=== PATIENT | female | born 1940 | race Caucasian/White ===

== ENCOUNTER 2020-07-02 14:30 | Emergency (ER) | payer MEDICARE, SELFPAY ==
--- NOTE | ~2020-07-02 | MR_ITS ---
EXAMINATION: MR LUMBAR SPINE WITHOUT CONTRAST CLINICAL INFORMATION: Low back pain and right leg weakness. COMPARISON: None TECHNIQUE: MRI of the lumbar spine was obtained using routine sequences without contrast. FINDINGS: VERTEBRAL BODIES AND PARASPINAL STRUCTURES: The marrow signal is within normal limits. Mild leftward lumbar spinal curvature noted. There is a grade 2 anterolisthesis at the L5-S1 level with a 1 cm slippage. Chronic bilateral L5 pars defects are also present. No compression fractures visible. Mild retrosubluxation noted at the L3-L4 level. The paraspinal soft tissues appear normal. There are mild degenerative changes of the sacroiliac joints. CONUS MEDULLARIS AND CAUDA EQUINA: Normal, terminating at the level of T12-L1. No lower cord signal abnormality is seen. The cauda equina nerve roots are normal. SPINAL LEVELS: L1-L2 AND L2-L3: No disc pathology, central canal stenosis, or foraminal narrowing. L3-L4: Mild retrosubluxation and disc bulge with anterior endplate spurring and mild facet arthropathy. No central canal stenosis. Mild right foraminal narrowing. L4-L5: Right paracentral disc protrusion mildly impressing upon the ventral thecal sac and right L5 nerve root in the subarticular zone. Severe facet arthropathy without central canal stenosis. Underlying disc bulge with mild right foraminal encroachment. L5-S1: Anterior subluxation and moderate facet degeneration with bilateral L5 pars defects and a diffuse disc bulge. No central canal stenosis. Unroofed disc and osseous spurring result in significant foraminal encroachment and compression of both exiting L5 nerve roots, worse on the left side. MR/MR lumbar spine wo con IMPRESSION: 1. Grade 2 anterolisthesis at the L5-S1 level with bilateral L5 pars defects and unroofed bulging disc contribute to severe foraminal encroachment and compression of both L5 nerve roots, more so on the left side. No central canal stenosis. 2. Right paracentral disc protrusion at L4-L5 level with mass effect upon the right L5 nerve root. Severe facet arthropathy. Mild spondylitic changes and slight retrosubluxation at the L3-L4 level.
[2020-07-02 15:35] VITALS: BP 153/72; PULSE 78; RESP 16; TEMP 36.6; O2SAT 96; BMI 35.1
--- NOTE | 2020-07-02 17:05 | PC.NURSE ---
PT HAS PHARMACY AT BEDSIDE DOING MED REC.
[2020-07-02 17:31] LABS: Glucose Urine UA NEG (NEG); Leukocyte Esterase Urine NEG (NEG); Nitrite Urine NEG (NEG); Specific Gravity - Urine 1.015 (1.005-1.025); Urine Blood NEG (NEG); Urine Ketones NEG (NEG); Urine Protein NEG (NEG-TRACE)
[2020-07-02] MEDS: Morphine Sulfate 4 MG/ML CARTRIDGE IVPUSH (17:31)
[2020-07-02] MEDS: ondansetron HCL 4 MG/2 ML VIAL IVPUSH (17:32)
[2020-07-02 17:34] LABS: Appearance Urine CLEAR; Color Urine STRAW; MANUAL DIFF FLAG NO
--- NOTE | 2020-07-02 17:34 | ED_ITS ---
HPI - General Adult General Chief complaint: Extremity Injury, Lower Stated complaint: bag and leg pain Time Seen by Provider: 07/02/20 15:56 Source: patient and family (Son, Andrew) Mode of arrival: ambulatory Limitations: language barrier (Maori speaking only, group tester used) History of Present Illness HPI narrative: 79-year-old female who presents emergency department for evaluation of right lower extremity pain weakness and back pain. According to the son, the patient had gradual onset of right leg pain. Approximately 1 month prior the patient developed numbness to her right lateral calf area. She states that the numbness got worse in turned into a painful sensation that she describes as if someone is drooling her leg constantly. The pain is 15/10. The pain improves if she lies down flap is worse if she sits upper tries to walk. Over the past 2-3 weeks she has also developed right lower back pain which is constant and moderate in intensity. According to the son, she has got weakness of the right leg to the point where she is unable to walk. She was seen by her behavior support specialist and referred to a vascular surgeon for possible peripheral arterial disease. She was seen by a vascular surgeon (? Dr. Dietz) yesterday and told that she most likely has a back problem causing her leg pain. The son states that the patient's pain and weakness got worse today therefore he brought her to the emergency department for evaluation. The patient has had episodes of constipation and diarrhea and has occasionally lost control of her bowels but not her urine. She has not had any fever or chills. 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 Related Data Home Medications Medication Instructions Recorded Confirmed albuterol sulfate [ProAir HFA] 2 puff INHALATION Q4H PRN 07/02/20 07/02/20 amlodipine 5 mg PO DAILY 07/02/20 07/02/20 aspirin 81 mg PO DAILY 07/02/20 07/02/20 atorvastatin 20 mg PO DAILY 07/02/20 07/02/20 cholecalciferol (vitamin D3) 25 mcg PO DAILY 07/02/20 07/02/20 [Vitamin D3] famotidine 20 mg PO BEDTIME 07/02/20 07/02/20 ferrous sulfate [FeroSul] 325 mg PO DAILY 07/02/20 07/02/20 furosemide 40 mg PO DAILY 07/02/20 07/02/20 insulin glargine [Lantus Solostar 20 unit SUBCUT BEDTIME 07/02/20 07/02/20 U-100 Insulin] levothyroxine 50 mcg PO DAILY@0630 07/02/20 07/02/20 losartan 100 mg PO DAILY 07/02/20 07/02/20 metoprolol tartrate 100 mg PO BID 07/02/20 07/02/20 rivaroxaban [Xarelto] 15 mg PO QPM 07/02/20 07/02/20 sertraline 100 mg PO DAILY 07/02/20 07/02/20 Allergies Allergy/AdvReac Type Severity Reaction Status Date / Time No Known Allergies Allergy Unverified 11/03/19 19:48 [No Known Allergies*] Review of Systems Review of Systems: Yes all other systems are reviewed and are negative ON LICENSE OF [facility] Past Medical History ON LICENSE OF [facility] Narrative: Past medical history diabetes mellitus, hypertension, coronary disease and kidney disease, past surgical history CABG 10 years prior, 2 valves replaced 10 years prior. The patient denies tobacco, alcohol and drug use. Medical History Diabetes Heart attack Kidney disease Surgical History H/O: hysterectomy Social History Social History Advance Directives: No Advance Directives Information Provided: Yes Physical Exam Vital Signs: Vital Signs: Last Vital Signs Temp 97.9 F 07/02/20 15:35 Pulse 69 07/02/20 20:37 Resp 14 07/02/20 20:37 BP 127/50 L 07/02/20 18:36 Pulse Ox 90 L 07/02/20 20:37 Body Mass Index 35.1 Const: General: cooperative Nutritional Appearance: overweight Orientation/consciousness: oriented to person and oriented to place Limitations: no limitations HENMT: Head: Yes normal to inspection, Yes normocephalic and Yes atraumatic Ears: external ears normal General nose exam: Normal external nose present Face and sinus: Yes normal facial exam Mouth: Normal oral and palatal mucosa present Throat: Yes posterior oropharynx normal Eyes: Periorbital: periorbital findings normal Eyelids: Yes eyelids normal Conjunctivae: conjunctivae normal Sclerae: sclerae normal Corneas: corneas normal Pupils: Equal, round and reactive pupils present Direct Ophthalmoscopy: normal light reflex Neck: Neck: Yes full ROM, Yes no lymphadenopathy, Yes no meningeal signs, Yes trachea midline and Yes supple Chest: Chest palpation & inspection: normal inspection of the chest and normal palpation of entire chest wall Resp: Effort & Inspection: normal respiratory effort and able to speak in complete sentences Auscultation: clear to auscultation bilaterally Cardio: Rate: regular rate Rhythm: regular rhythm Heart sounds: S1 normal heart sound present, S2 normal heart sound present and no murmurs GI: Inspection: Yes normal to inspection Palpation (GI): Soft to palpation, nontender, no guarding, not rigid and No hepatosplenomegaly present : General: Yes no CVA tenderness Back/Spine/Pelvis: Back: no CVA tenderness Cervical Spine: normal cervical lordosis Thoracic/Lumbar Spine: thoracic and lumbar spine normal to inspection and lumbar spinal tenderness at L1, at L2, at L3, at L4 and at L5 Skin: Lesions: no lesions Rashes: no rashes Wounds: no wounds Neuro: Other: Strength examination: The patient's left lower extremity has normal strength. The right lower extremity revealed that the patient is unable to lift her right leg off the bed against gravity. She is unable to move her right leg side to side secondary to weakness and pain. The patient has good dorsiflexion of her foot and good extension of her foot. She has normal strength of her right great toe with flexion and extension. Reflexes: Patella and ankle jerk reflexes are absent bilaterally. General: oriented to person, oriented to place and no meningeal signs Cranial nerves: Yes CN's II-XII intact bilaterally and Yes Equal, round and reactive pupils present Cognition (Neuro): normal cognition Motor exam (neuro): Other motor observations present Sensory Exam: other (Decreased light touch right lateral calf) Extrem: General: Yes normal to inspection and Yes full ROM Psych: Appearance: well kempt Mental Status: mental status grossly normal Speech and movement: Normal speech and movement present Affect: normal affect Attitude: cooperative Thought process: Normal thought process present Thought content: Normal thought content present Course Course Course Narrative: 79-year-old female who presents emergency department for evaluation progressive right lower extremity pain with weakness x4 weeks and right lower extremity weakness x2 weeks. Patient does have weakness of her right lower extremity with decreased sensation over the right lateral calf area. I am concerned the patient's symptoms have progressed and now she has numbness and weakness in her right leg to the point where she is unable to walk. The distribution appears to be in a L3-L4, L4-L5 pattern. The patient is on blood thinners, possible that she may have the hematoma in this area versus disc disease. I did order blood work on the patient as well as an MRI of the lumbar spine. 2010: The patient did get some improvement with the morphine 4 mg IV. Her pain came down to 5/10. She was ordered to get a 2nd dose of morphine 2 mg IV. Patient's laboratory evaluation revealed an elevated INR of 1.9 otherwise was unremarkable. The MRI of the patient's lumbar spine did reveal a right paracentral disc protrusion at L4-L5 level with mass effect upon the right L5 nerve root. Severe facet arthropathy. Mild spondylitic changes and slight retrosubluxation at the L3-L4 level. Given this finding, the patient has weakness in her right lower extremity and numbness, believe that the patient will need neurosurgical evaluation. I did contact the transfer line at [facility] to discuss this further with the neurosurgeon provider on-call for their institution 2121: I did discuss the patient's presentation with the physician gallery assistant covering the neurosurgical service at [facility]. She was able to review the MRIs. Her impression was that the patient could follow-up with them as an outpatient however the patient has progressive weakness over the past 2 weeks with a significant finding on the MRI and I disagreed with recommendation therefore I will attempt to get the patient transferred to another facility for neurosurgical evaluation. 2157: I did discuss the patient's presentation with the transfer line at [facility]. The patient was accepted as an ED to ED transfer to their [facility]. The excepting physician is Dr. Horvath. The patient will be transferred by ALS ambulance. Medical Decision Making Lab Data Result diagrams: 07/02/20 17:12 07/02/20 18:35 Labs: Lab Results 07/02/20 07/02/20 07/02/20 Range/Units 17:12 17:12 17:12 WBC 8.3 (4.8-10.8) X10*3/uL RBC 4.23 (4.20-5.50) X10*6/uL Hgb 11.9 L (12.0-16.0) g/dl Hct 37.9 (37-47) % MCV 89.6 (80-98) fL MCH 28.1 (27.0-33.0) pg MCHC 31.4 (31.0-35.0) g/dl RDW 14.5 (11.0-16.0) % Plt Count 199 (160-400) X10*3/uL MPV 11.5 (9.4-12.3) fL Immature Gran % (Auto) 0.5 H (0.0-0.4) % Neut % (Auto) 74.2 H (45-73) % Lymph % (Auto) 14.4 L (20-40) % [place] % (Auto) 7.7 (2-11) % Eos % (Auto) 2.8 (0-4) % Baso % (Auto) 0.4 (0-2) % Lymph # (Auto) 1.2 (1.2-4.9) X10*3/uL [place] # (Auto) 0.6 (0.1-1.2) X10*3/uL Eos # (Auto) 0.2 (0.0-0.4) X10*3/uL Baso # (Auto) 0.0 (0.0-0.2) X10*3/uL Abs Immat Gran (auto) 0.04 H (0.00-0.03) X10*3/uL Absolute Neuts (auto) 6.1 (2.0-8.3) X10*3/uL Absolute Nucleated RBC 0.000 (0.0-0.012) X10*3/uL Nucleated RBC % (auto) 0.0 (0.0-0.2) /100WBC PT 22.6 H (10.8-13.0) SEC INR 1.9 H (0.9-1.1) APTT 48.6 H (24.1-38.0) SEC Sodium (135-145) mmol/L Potassium (3.3-5.1) mmol/L Chloride (96-108) mmol/L Carbon Dioxide (22-29) mmol/L Anion Gap (12-20) BUN (9-16) mg/dL Creatinine (0.5-1.4) mg/dL Estim Creat Clear Calc Estimated GFR Random Glucose (60-115) mg/dL Calcium (8.4-10.2) mg/dL Total Bilirubin (0.0-1.0) mg/dL AST (5-31) U/L ALT (0-31) U/L Alkaline Phosphatase (39-117) U/L Total Protein (6.5-8.0) g/dL Albumin (3.5-5.0) g/dL Urine Color STRAW Urine Appearance CLEAR Urine pH 7.0 (5.0-8.0) Ur Specific [place] 1.015 (1.005-1.025) Urine Protein NEG (NEG-TRACE) MG/DL Urine Glucose (UA) NEG (NEG) MG/DL Urine Ketones NEG (NEG) MG/DL Urine Blood NEG (NEG) Urine Nitrite NEG (NEG) Ur Leukocyte Esterase NEG (NEG) COVID-19 (DENISE) (Negative) COVID-19 Clin Com 07/02/20 07/02/20 Range/Units 18:35 20:21 WBC (4.8-10.8) X10*3/uL RBC (4.20-5.50) X10*6/uL Hgb (12.0-16.0) g/dl Hct (37-47) % MCV (80-98) fL MCH (27.0-33.0) pg MCHC (31.0-35.0) g/dl RDW (11.0-16.0) % Plt Count (160-400) X10*3/uL MPV (9.4-12.3) fL Immature Gran % (Auto) (0.0-0.4) % Neut % (Auto) (45-73) % Lymph % (Auto) (20-40) % [place] % (Auto) (2-11) % Eos % (Auto) (0-4) % Baso % (Auto) (0-2) % Lymph # (Auto) (1.2-4.9) X10*3/uL [place] # (Auto) (0.1-1.2) X10*3/uL Eos # (Auto) (0.0-0.4) X10*3/uL Baso # (Auto) (0.0-0.2) X10*3/uL Abs Immat Gran (auto) (0.00-0.03) X10*3/uL Absolute Neuts (auto) (2.0-8.3) X10*3/uL Absolute Nucleated RBC (0.0-0.012) X10*3/uL Nucleated RBC % (auto) (0.0-0.2) /100WBC PT (10.8-13.0) SEC INR (0.9-1.1) APTT (24.1-38.0) SEC Sodium 143 (135-145) mmol/L Potassium 3.7 (3.3-5.1) mmol/L Chloride 102 (96-108) mmol/L Carbon Dioxide 31 H (22-29) mmol/L Anion Gap 14 (12-20) BUN 16 (9-16) mg/dL Creatinine 1.10 (0.5-1.4) mg/dL Estim Creat Clear Calc 42.2 Estimated GFR 48 Random Glucose 191 H (60-115) mg/dL Calcium 8.7 (8.4-10.2) mg/dL Total Bilirubin 1.6 H (0.0-1.0) mg/dL AST 18 (5-31) U/L ALT 15 (0-31) U/L Alkaline Phosphatase 111 (39-117) U/L Total Protein 6.9 (6.5-8.0) g/dL Albumin 4.1 (3.5-5.0) g/dL Urine Color Urine Appearance Urine pH (5.0-8.0) Ur Specific [place] (1.005-1.025) Urine Protein (NEG-TRACE) MG/DL Urine Glucose (UA) (NEG) MG/DL Urine Ketones (NEG) MG/DL Urine Blood (NEG) Urine Nitrite (NEG) Ur Leukocyte Esterase (NEG) COVID-19 (DENISE) Negative (Negative) COVID-19 Clin Com See Note Imaging Data MRI lumbar spine without contrast: Radiologist's impression: Ordering Physician: Davie Ramon MD Date of Service: 07/02/20 Procedure(s): MR lumbar spine wo con Accession Number(s): [id number] cc: Davie Ramon MD~ EXAMINATION: MR LUMBAR SPINE WITHOUT CONTRAST CLINICAL INFORMATION: Low back pain and right leg weakness. COMPARISON: None TECHNIQUE: MRI of the lumbar spine was obtained using routine sequences without contrast. FINDINGS: VERTEBRAL BODIES AND PARASPINAL STRUCTURES: The marrow signal is within normal limits. Mild leftward lumbar spinal curvature noted. There is a grade 2 anterolisthesis at the L5-S1 level with a 1 cm slippage. Chronic bilateral L5 pars defects are also present. No compression fractures visible. Mild retrosubluxation noted at the L3-L4 level. The paraspinal soft tissues appear normal. There are mild degenerative changes of the sacroiliac joints. CONUS MEDULLARIS AND CAUDA EQUINA: Normal, terminating at the level of T12-L1. No lower cord signal abnormality is seen. The cauda equina nerve roots are normal. SPINAL LEVELS: L1-L2 AND L2-L3: No disc pathology, central canal stenosis, or foraminal narrowing. L3-L4: Mild retrosubluxation and disc bulge with anterior endplate spurring and mild facet arthropathy. No central canal stenosis. Mild right foraminal narrowing. L4-L5: Right paracentral disc protrusion mildly impressing upon the ventral thecal sac and right L5 nerve root in the subarticular zone. Severe facet arthropathy without central canal stenosis. Underlying disc bulge with mild right foraminal encroachment. L5-S1: Anterior subluxation and moderate facet degeneration with bilateral L5 pars defects and a diffuse disc bulge. No central canal stenosis. Unroofed disc and osseous spurring result in significant foraminal encroachment and compression of both exiting L5 nerve roots, worse on the left side. MR/MR lumbar spine wo con IMPRESSION: 1. Grade 2 anterolisthesis at the L5-S1 level with bilateral L5 pars defects and unroofed bulging disc contribute to severe foraminal encroachment and compression of both L5 nerve roots, more so on the left side. No central canal stenosis. 2. Right paracentral disc protrusion at L4-L5 level with mass effect upon the right L5 nerve root. Severe facet arthropathy. Mild spondylitic changes and slight retrosubluxation at the L3-L4 level. Dictated By:KARO MORRIS MDSigned By:<Electronically signed by KARO MORRIS MD in [place]>07/02/201919 DD/ TD/TT: Loss Prevention Associate: KATLYN Discharge Plan Discharge Clinical Impression: Intervertebral disc protrusion, Right leg weakness, Acute right lumbar radiculopathy Patient Disposition: [facility] Transfer Details: [facility] ED to ED transfer to the [facility], excepting physician Prescriptions: No Action sertraline 100 mg Tablet 100 mg PO DAILY RF: 0 furosemide 40 mg Tablet 40 mg PO DAILY RF: 0 atorvastatin 20 mg Tablet 20 mg PO DAILY RF: 0 metoprolol tartrate 100 mg Tablet 100 mg PO BID RF: 0 amlodipine 5 mg Tablet 5 mg PO DAILY RF: 0 aspirin 81 mg Tablet,Delayed Release (Dr/Ec) 81 mg PO DAILY RF: 0 famotidine 20 mg Tablet 20 mg PO BEDTIME RF: 0 levothyroxine 50 mcg Tablet 50 mcg PO DAILY@0630 RF: 0 losartan 100 mg Tablet 100 mg PO DAILY RF: 0 cholecalciferol (vitamin D3) [Vitamin D3] 25 mcg (1,000 unit) Tablet 25 mcg PO DAILY RF: 0 Lantus Solostar U-100 Insulin 100 unit/mL (3 mL) Insulin Pen 20 unit SUBCUT BEDTIME RF: 0 ferrous sulfate [FeroSul] 325 mg (65 mg iron) Tablet 325 mg PO DAILY RF: 0 Xarelto 15 mg Tablet 15 mg PO QPM RF: 0 albuterol sulfate [ProAir HFA] 90 mcg/actuation Hfa Aerosol Inhaler 2 puff INHALATION Q4H PRN (Reason: Respiratory Distress) RF: 0
[2020-07-02 17:36] LABS: Basophils Percent Auto 0.4 % (0-2); Eosinophils Absolute Auto 0.2 X10*3/uL (0.0-0.4); Eosinophils Percent Auto 2.8 % (0-4); Hematocrit 37.9 % (37-47); Hemoglobin 11.9 g/dl (12.0-16.0); Imm Gran Abs Auto 0.04 X10*3/uL (0.00-0.03); Imm Gran Pct Auto 0.5 % (0.0-0.4); Lymphocytes Absolute Auto 1.2 X10*3/uL (1.2-4.9); Lymphocytes Percent Auto 14.4 % (20-40); Mean Corpuscular HGB Conc 31.4 g/dl (31.0-35.0); Mean Corpuscular Hemoglobin 28.1 pg (27.0-33.0); Mean Corpuscular Volume 89.6 fL (80-98); Mean Platelet Volume 11.5 fL (9.4-12.3); Monocytes Absolute Auto 0.6 X10*3/uL (0.1-1.2); Monocytes Percent Auto 7.7 % (2-11); Neutrophils Absolute Auto 6.1 X10*3/uL (2.0-8.3); Neutrophils Percent Auto 74.2 % (45-73); Platelet Count 199 X10*3/uL (160-400); Red Blood Count 4.23 X10*6/uL (4.20-5.50); Red Cell Distribution Width 14.5 % (11.0-16.0); White Blood Count 8.3 X10*3/uL (4.8-10.8)
[2020-07-02 17:46] LABS: INTERNATIONAL NORM RATIO 1.9 (0.9-1.1); Prothrombin Time 22.6 SEC (10.8-13.0)
[2020-07-02 18:17] LABS: Partial Thromboplastin Time 48.6 SEC (24.1-38.0)
[2020-07-02 18:36] VITALS: BP 127/50; PULSE 70; RESP 16; O2SAT 94
[2020-07-02 19:16] LABS: Alanine Aminotransferase 15 U/L (0-31); Albumin Level 4.1 g/dL (3.5-5.0); Alkaline Phosphatase 111 U/L (39-117); Anion Gap 14 (12-20); Aspartate Amino Transferase 18 U/L (5-31); Bilirubin Total 1.6 mg/dL (0.0-1.0); Blood Urea Nitrogen 16 mg/dL (9-16); Calcium 8.7 mg/dL (8.4-10.2); Carbon Dioxide 31 mmol/L (22-29); Chloride 102 mmol/L (96-108); Creatinine Clr Calc Pharmacy 42.2; Estimated Glomerular Filt Rate 48; Glucose Random 191 mg/dL (60-115); Potassium 3.7 mmol/L (3.3-5.1); Sodium 143 mmol/L (135-145); Total Protein 6.9 g/dL (6.5-8.0)
[2020-07-02] MEDS: Morphine Sulfate 4 MG/ML CARTRIDGE 2 MG IVPUSH (20:28)
[2020-07-02 20:37] VITALS: PULSE 69; RESP 14; O2SAT 90
--- NOTE | 2020-07-02 20:38 | PC.NURSE ---
HELD MORPHINE DO TO LOW SPO2 90% RR 14.
[2020-07-02 20:42] LABS: COVID-19 Test Negative (Negative)
[2020-07-02 23:10] VITALS: BP 141/52; PULSE 63; RESP 14; TEMP 36.9; O2SAT 94
--- NOTE | 2020-07-02 23:28 | PC.NURSE ---
NEURO SURGERY EXCEPTED PT TO [facility] ER ADMISSION PT AND FAMILY AWARE PT WILL BE TRANSFER BY AMBULANCE.
--- NOTE | 2020-07-02 23:44 | PC.NURSE ---
PT PAIN IN CONTROL AT THIS TIME PT SLEEPING COMFORTABLE TRANSFERRED WITH EASE TO [facility] FOR TRANSPORT.
== END 2020-07-02 23:44 | disposition short-term general hospital (02) ==
PROVIDERS: Emergency Provider Emergency Medicine Emergency Medical Services; PCP Nurse Practitioner Family
DX: M51.16 Intervertebral disc disorders with radiculopathy, lumbar region (principal); M79.661 Pain in right lower leg; R53.1 Weakness; Z20.822 Contact with and (suspected) exposure to COVID-19; E11.9 Type 2 diabetes mellitus without complications; Z79.4 Long term (current) use of insulin
CPT/HCPCS: 36415; 72148; 80053; 81003; 85025; 85610; 85730; 87635; 96374; 96375; 96376; 99285; J2270; J2405

== ENCOUNTER 2024-06-01 13:13 | Outpatient (AMB) | payer MEDICARE, SELFPAY ==
--- NOTE | 2024-06-01 13:19 | MHC.OFFVIS ---
Vital Signs 06/01/24 13:22 Height 4 ft 11 in Weight 155 lb BMI 31.3 BP 126/64 Blood Pressure Location Rt brachial Position Sitting Pulse 60 Pulse Source Pulse Oximeter Pulse Oximetry (%) 97 Oxygen Delivery Method Nasal Cannula Oxygen Flow Rate 2 Intake Visit Reasons: Interstitial Lung Disease Cloth Mercerizer Operator Required: No Cloth Mercerizer Operator Services: Cloth Mercerizer Operator Offered & Declined Assistant Professor Of Economics: Assistant Professor Of Economics offered & declined Accompanied by: Son Allergies No Known Allergies [No Known Allergies*] Allergy (Unverified 06/01/24 13:26) Medication List - Last Reconciled 06/01/24 by Faye Hernandes LPN albuterol sulfate 90 mcg/actuation (ProAir HFA) 2 puffs inhalation Q4H PRN atorvastatin 20 mg PO DAILY cholecalciferol (vitamin D3) (Vitamin D3) 25 mcg PO DAILY famotidine 20 mg PO BEDTIME ferrous sulfate (FeroSul) 325 mg PO DAILY furosemide 40 mg PO BID insulin glargine (Lantus Solostar U-100 Insulin) 20 units subcut BEDTIME levothyroxine 50 mcg PO DAILY@0630 metoprolol tartrate 100 mg PO BID olmesartan 20 mg PO DAILY rivaroxaban (Xarelto) 15 mg PO QPM sertraline 50 mg PO DAILY HPI HPI Interstitial Lung Disease: Details: Ratna is a pleasant 83-year-old female, never smoker, with underlying history of interstitial lung disease, chronic respiratory failure O2 dependent, CHF, hypertension, hyperlipidemia, CABG x3, atrial fibrillation on Xarelto, diabetes, GERD, chronic kidney disease, and left vocal cord paralysis with history of Botox injections through ENT. She was referred by PCP for pulmonary evaluation due to known history of interstitial lung disease. She was previously under the care of [facility] however required transfer to this office. Per referral patient has had 9 admissions in 2021 related to acute on chronic respiratory failure, with known history of silent aspiration. Reviewed pulmonary records which stated likely aspiration related pneumonitis. She had a modified barium swallow test in November 2023 which revealed silent aspiration. Since this patient reports she has had good control of respiratory symptoms adjusting diet. She does admit to not consistently using thickener with liquids. Her son notes that when she does not use it, she almost always develops wet cough afterwards. She report intermittent wheezing and dyspnea. She currently uses nebulized albuterol/DuoNeb however infrequently. She has been using 1-2L with exertion and 1L with rest. She does note that she is very inactive at this time due to persistent vertigo which she will be starting PT for this. She is under the care of cardiology through [facility], last echo 2020 revealed moderate pulmonary hypertension RSVP 50-55. She reports orthopnea and trace BLE edema using 40mg lasix QD. She also is going to be evaluated by neurology for possible dementia. [facility] Medical History Diabetes Heart attack Kidney disease Surgical History H/O: hysterectomy Social History (Updated 06/01/24 @ 13:32 by Faye Hernandes LPN) Patient Tobacco Use Status: Never used Tobacco Review of Systems Const Denies chills, Denies excessive sweating, Denies fever(s), Denies headache(s) and Denies night sweats Eyes Denies dry eyes, Denies irritation and Denies itchy eyes ENT Reports Normal hearing present, Denies headache(s), Denies nasal congestion, Denies nasal discharge, Denies post nasal drip and Denies sore throat Card Denies chest pain, Denies chest pain at rest, Denies chest pain with activity, Denies claudication and Denies paroxysmal nocturnal dyspnea Resp Denies chest congestion, Denies excessive phlegm production, Denies pain on inspiration, Denies pain with cough and Denies stridor Musc Denies myalgias Neuro Reports Normal hearing present and Denies headache(s) Endo Denies excessive sweating Gaudencio/Lymph Denies lymphadenopathy Aller/Immun Denies itchy eyes and Denies seasonal rhinorrhea Physical Exam Vital Signs: Last Vital Signs Pulse 60 06/01/24 13:22 BP 126/64 06/01/24 13:22 Pulse Ox 97 06/01/24 13:22 Oxygen Delivery Method Nasal Cannula 06/01/24 13:22 Oxygen Flow Rate 2 06/01/24 13:22 BMI result Body Mass Index 31.3 Const General: cooperative, healthy appearing, comfortable, no acute distress, well developed and alert Nutritional Appearance: obese Orientation/consciousness: patient oriented x3 Limitations: no limitations HEENT Head: Yes normal to inspection, Yes normocephalic and Yes atraumatic Ears: hearing grossly normal bilaterally and external ears normal Eyes General: appearance normal, both eyes and all related structures Eyelids: Yes eyelids normal Sclerae: sclerae normal EOM: EOMs intact bilaterally Neck Neck: Yes normal visual inspection and Yes no lymphadenopathy Lymphatic: no lymphadenopathy noted Chest Chest palpation & inspection: normal inspection of the chest Resp Effort & Inspection: normal respiratory effort, able to speak in complete sentences, no audible wheezes, no cough, no stridor, not tachypneic, no tripod positioning and no use of accessory muscles Auscultation: diminished lung sounds Cardio Jugular venous distension: no JVD Rate: regular rate Rhythm: regular rhythm Skin Other: warm, dry General skin exam: no rashes or lesions noted Neuro General: patient oriented x3 Cranial nerves: Yes Normal hearing present Cognition (Neuro): normal cognition Gait exam (Neuro): Normal gait present Extrem General: Yes normal to inspection, Yes capillary refill normal, Yes no clubbing, cyanosis or edema and Yes no pedal edema Psych Appearance: grossly normal and well kempt Speech and movement: Normal speech and movement present and Clear speech present Affect: normal affect Attitude: cooperative Thought process: Normal thought process present Thought content: Normal thought content present Insight: Good insight present (Psych) Judgement: Good judgement present (Psych) Results Reviewed Results Reviewed: PFT's Complete Please click on pdf link to open report PFT's Complete Lab: [facility] Name: RATNA LOYD CMRN: [id number] Sex: F Age: 82 Ethnicity: Hi Height: 59 In Weight: 178 Lb BMI: 35.9 Referring: Katherine Waldron M.D. Date of test: 11-Dec-2022 SPIROMETRY: FEV1 0.87, 58%; FVC 0.92, 47%; FEV1/FVC 95%; PEFR 3.20, 83%; SVC 1.05, 54% LUNG VOLUMES (N2): TLC 2.26, 58%; FRC 1.19, 54%; RV 1.21, 68%, IC 1.07, ERV 0.00 DIFFUSING CAPACITY: DLCO and KCO are 15% predicted adjusted for lung volume, Hb, barometric pressure DLCO 1.67, 11%, KCO 0.96, 25% predicteds adjusted for Hb of 12.2 VA 1.73, 46% 1.17, 60%, 127% of FVC OXIMETRY: 97% on 2 L/min O2 at rest PRIOR RESULTS: FEV1: 0.71, FVC: 0.86, T.80, DLCO: 1.11 on 09/04/2021. INTERPRETATION: Per weld technician patient had difficulty with testing despite good effort due to dyspnea Spirometry of limited quality, best effort demonstrates FEV1 0.87L (58% predicted) and FVC 0.92L (47% predicted) Moderate restrictive ventilatory defect based on lung volumes which correlate with spirometry values Severely reduced diffusion capacity on single effort with low volumes so may underestimate true DLCO Oxygen saturation (97%) is good on 2 L/min O2 at rest. The finding of restriction, high flows relative to FVC, with low DLCO is consistent with interstitial lung disease. Recommend check rest and walking O2 saturations as hypoxia can occur with DLCO this low. Normal values are not well established for individuals of this height. Since 09/04/2021, higher FEV1 (+23%, +15% pred), unchanged FVC (+7%), higher TLC (+26%, +14% pred), DLCO [Unc] (+50%, +4% pred). Interpreting Physician: Nathan Mohr M.D. Echo Complete-Doppler, Colorflow, M-Mode Transthoracic Echocardiography Report (TTE) Patient Demographics Patient Name RATNA LOYD Date of Study 01/14/2022 Corporate Gender Female Facility Race Ethnicity or Date of 1940 Height: 62.6 inches Age 81 year(s) Weight: 174.17 pounds Accession Number [id number] BSA: 1.81 m2 Room Number [id number] BMI: 31.25 kg/m2 Referring Physician Binu Acuna MD, MD Physician Director Of Physician Practices Marily Murphy [facility] Indications Heart failure. Clinical History COPD Remote history of CABG Atrial fibrillation. Congestive heart failure. ILD Study Data Type of Study TTE procedure:Echo Complete-Doppler, Colorflow, M-Mode. Study Date01/14/2022 Start Time: 01:57 PM Study Location: [facility] Adult Echo Study Status: ER Patient Status: Routine Technical Quality: Fair due to body habitus. Blood Pressure:124/54 mmHg EKG: Atrial fibrillation HR: 94 bpm Allergies - No known allergies. 2D Measurements LV Diastolic Dimension: 4.18 cm LV Systolic Dimension: 2.3 cm LV Septum Diastolic: 0.85 cm LV PW Diastolic: 1.04 cm AO Root Dimension: 2.76 cm RV Diastolic Dimension: 3.75 cm LA Dimension: 4 cm LA ESV (BP):75.45 ml LVOT Stroke Volume: 39 ml LA ESV Index: 42 ml/m2 Stroke Volume Index21.55 ml/m2 LVOT: 1.82 cm Cardiac Index:2.03 l/min/m2 Ascending Aorta:3.03 cm Doppler Measurements AV Peak Velocity: 138 cm/s MV Peak E-Wave: 90.8 cm/s AV Peak Gradient: 7.62 mmHg AV Mean Gradient: 3 mmHg MV P1/2t: 73 msec AV VTI:24.5 cm LVOT Peak Velocity: 81.6 cm/s MV Deceleration Time: 248 msec LVOT VTI15 cm MV Area (PHT): 3.01 cm2 AV Area (Continuity):1.59 cm2 PV Peak Velocity: 92.3 cm/s TR Velocity:309.48 cm/s PV Peak Gradient: 3.41 mmHg TR Gradient:38.31 mmHg Cardiac Anatomy Left Ventricle/Interventricular Septum The left ventricular size is normal. Left ventricular wall thickness is normal. The LV systolic function is normal . The left ventricular ejection fraction is 50-55 %. There is mild flattening of the interventricular septum during systole consistent with right ventricular pressure overload. Unable to assess diastolic function due to atrial fibrillation . Left Atrium/Interatrial Septum The left atrium is moderately dilated. Aortic Valve The aortic valve is trileaflet . The aortic valve appears mildly calcified. There is no aortic stenosis. There is no aortic regurgitation. Mitral Valve There is mild mitral annular calcification. The mitral valve opening is normal. There is mild mitral regurgitation. Aorta The ascending aorta and aortic root are normal in size. Right Ventricle The right ventricle is poorly visualized. The right ventricle is dilated. Right ventricular systolic function is mildly to moderately reduced. Right Atrium The right atrium is dilated. Pulmonic Valve The pulmonic valve appears grossly normal. Tricuspid Valve The tricuspid valve is grossly normal. There is moderate tricuspid valve regurgitation. Pumonary Artery There is moderate pulmonary hypertension. The pulmonary artery systolic pressure estimation is 50-55 mmHg. Venous Structures The inferior vena cava is mildly dilated with poor inspiratory collapse consistent with elevated right atrial pressures. Pericardium/Extracardiac There is no significant pericardial effusion. Summary The left ventricular size is normal. Left ventricular wall thickness is normal. The LV systolic function is normal . The left ventricular ejection fraction is 50-55 %. There is mild flattening of the interventricular septum during systole consistent with right ventricular pressure overload. Unable to assess diastolic function due to atrial fibrillation . The left atrium is moderately dilated. There is mild mitral annular calcification. The mitral valve opening is normal. There is mild mitral regurgitation. The right ventricle is poorly visualized. The right ventricle is dilated. Right ventricular systolic function is mildly to moderately reduced. There is moderate pulmonary hypertension. The pulmonary artery systolic pressure estimation is 50-55 mmHg. The inferior vena cava is mildly dilated with poor inspiratory collapse consistent with elevated right atrial pressures. Comparison Comparison is made to the study of May 09, 2021. The prior study is not available for comparison. Signature LT: CT Chest W/O Contrast CT Chest W/O Contrast INDICATION: Pneumonia, unresolved TECHNIQUE: Helical CT scan of the chest without IV contrast, formatted in 3 planes. Weight-based protocol was performed using automatic exposure control. CTDIvol Body: 15.09 mGy, DLP Body: 507 mGy*cm. COMPARISON: CT 01/03/2022. FINDINGS: Radio Producer view findings, lines and tubes: None. Trachea and airways: Patent without evidence of tracheal or endobronchial lesion. Lungs and pleura: Compared to 01/03/2022, notable decrease in multifocal airspace consolidations with no residual dense consolidative opacity. Where the consolidative opacities had been, there are scattered faint groundglass opacities some with associated interlobular septal thickening yielding a crazy painting appearance in the upper lobes. These groundglass opacities are intermixed with areas of more lucent lung creating a mosaic pattern. No bronchiectasis. No effusion or pneumothorax. Mediastinum and vicenta: Mildly prominent mediastinal lymph node, largest measuring 12 mm short axis, similar to prior. No esophageal abnormality. Visualized thyroid gland is atrophic. Heart: Moderate cardiomegaly. No pericardial effusion. Status post CABG. Aorta: Moderate vascular calcification but no aneurysm. Pulmonary arteries: Dilated main pulmonary artery measuring up to 3.1 cm in caliber, which may be seen with pulmonary hypertension. Chest wall soft tissues: Chronic bilateral coarse breast calcifications. Diaphragm: Intact. Upper abdomen: Coarse calcification in the pancreatic head region. Vascular calcifications. Bones: No acute abnormality. Degenerative changes of the spine. Prior median sternotomy. IMPRESSION: Compared to 01/03/2022, notable decrease in multifocal airspace consolidation with no residual dense consolidative opacity. There are fairly extensive faint groundglass opacities throughout both lungs with mild superimposed interlobar septal thickening. These areas of groundglass change are intermixed with areas of more lucent lung, creating a mosaic appearance. Findings most likely represent organizing pneumonia secondary to extensive multifocal pneumonia seen in 12/2021. I have personally reviewed the images and I agree with this report. WSN: [id number] Ordering Physician: Ninfa White Reason For Exam Pneumonia, unresolved;Other: Signature Line Dictated By: Jules Morocho MD Dictated Date/Time: 08/13/22 4:23 pm Reviewed By: Andrew Valdez MD Signed By: Andrew Valdez MD Signed Date/Time: 08/13/22 4:28 pm Transcribed By: ALEX Transcribed Date/Time: 08/13/22 4:10 pm Assessment & Plan Assessment & Plan (1) Chronic respiratory failure with hypoxia: Code(s): J96.11 - Chronic respiratory failure with hypoxia Category: Medical (2) Pulmonary hypertension: Code(s): I27.20 - Pulmonary hypertension, unspecified Category: Medical (3) Aspiration pneumonitis: Code(s): J69.0 - Pneumonitis due to inhalation of food and vomit Category: Medical Plan Ratna presents for pulmonary evaluation with prior history of multiple admissions for acute on chronic respiratory failure likely related to aspiration. At this time she reports moderate control of respiratory symptoms using nebulized therapy and diet changes. She currently uses 1-2L on exertion, will plan for 6MWT at the next visit. Will send for overnight oximetry on room air to assess need for supplemental oxygen NOC. CT chest from 2022 revealed There are fairly extensive faint groundglass opacities throughout both lungs with mild superimposed interlobar septal thickening. These areas of groundglass change are intermixed with areas of more lucent lung, creating a mosaic appearance. Findings most likely represent organizing pneumonia secondary to extensive multifocal pneumonia seen in 12/2021. Will repeat chest CT to assess for resolution versus progression of ground-glass changes. Will also send for repeat echo as prior 2020 revealed moderate pulmonary hypertension. All questions were answered and patient is in agreement of plan. Will follow up to review results or sooner if needed. Orders: Orders CA echo transthoracic complete Today I27.20 - Pulmonary hypertension, unspecified CT chest wo IV con Today J69.0 - Pneumonitis due to inhalation of food and vomit, R91.8 - Other nonspecific abnormal finding of lung field Overnight Pulse Oximetry Today J96.11 - Chronic respiratory failure with hypoxia Coding Level of Care Code New Pt Level 4 (69729) Diagnoses Chronic respiratory failure with hypoxia J96.11 Pulmonary hypertension I27.20 Aspiration pneumonitis J69.0
[2024-06-01 13:22] VITALS: BP 126/64; PULSE 60; O2SAT 97; BMI 31.3
--- OUTSIDE RECORDS SUMMARY | 2024-06-01 15:39 | XMS_ITS | Referral Summary ---
Author Organization [facility] Address [address] [place] [address] Care Team Providers Care Spring Tier Name Role Phone Geno Shields Primary Care Provider [phone] Allergies No known active allergies Medications albuterol (PROAIR HFA,VENTOLIN HFA) 90 mcg inhaler Inhale 1-2 puffs by mouth every 4 hours as needed for wheezing or shortness of breath. Use with spacer. Active amLODIPine (NORVASC) 5 mg tablet Take 5 mg by mouth daily. Active aspirin chewable tablet 81 mg Chew and swallow 81 mg by mouth daily. Active atorvastatin (LIPITOR) 20 mg tablet Take 20 mg by mouth daily. Active cholecalciferol (VITAMIN D3) 400 unit tablet Take 400 Units by mouth daily. Active famotidine (PEPCID) 20 mg tablet Take 20 mg by mouth every night. Active ferrous sulfate 325 mg (65 mg iron) tablet Take 325 mg by mouth daily with breakfast. Active insulin glargine (Lantus U-100 Insulin) 100 units/mL solution injection Inject 20 Units under the skin nightly. Active levothyroxine (SYNTHROID, LEVOTHROID) 50 mcg tablet Take 50 mcg by mouth daily. Active losartan (COZAAR) 100 mg tablet Take 100 mg by mouth daily. Active metoprolol tartrate (LOPRESSOR) 100 mg tablet Take 100 mg by mouth 2 times a day. Active rivaroxaban (XARELTO) 15 mg tablet Take 15 mg by mouth every night. Active sertraline (ZOLOFT) 100 mg tablet Take 100 mg by mouth daily. Active furosemide (LASIX) 20 mg tablet Take 1 tablet (20 mg total) by mouth daily. 30 tablet 1 Active gabapentin (NEURONTIN) 100 mg capsule Take 1 capsule (100 mg total) by mouth nightly. 30 capsule 1 Active polyethylene glycol 3350 (MIRALAX) 17 gram packet Take 1 packet (17 g total) by mouth daily as needed (constipation) . Mix powder in 4 to 8 oz of water, juice, coffee, or tea. 30 each 1 Active Active Problems Problem Noted Date Diagnosed Date ARIEL (acute kidney injury) 07/04/2020 Assessment & Plan (07/05/2020 3:47 PM EDT): Patient history of CKD (unknown baseline) who presented with Creat of 1.07. 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 Patient does not follow with a firer automatic stoker at present. - Continue Aspirin 81 mg - Continue Atorvastatin 20 mg daily Hypothyroidism 07/03/2020 Assessment & Plan (07/03/2020 6:34 PM EDT): Continue Levothyroxine 50 mcg daily Anemia 07/03/2020 Assessment & Plan (07/03/2020 6:34 PM EDT): - Hb stable - Continue Ferrous sulfate 325 mg daily Diabetes 07/03/2020 Assessment & Plan (07/04/2020 2:39 PM EDT): - Maintain BGL between 140-180 - HbA1c: 7 - Home Meds: Glargine 20 units qpm - Continue glargine 20 units qpm + LDSSI - Consider DM consult - Diabetic diet Acute respiratory failure with hypoxia Assessment & Plan (07/05/2020 3:47 PM EDT): Patient with a history of chronic shortness of breath associated with PND, orthopnea and intermittent LL edema. Unclear if patient has had any weight changes or known history of CHF. She is a non smoker and rarely uses her proair inhaler at home. No cough, phlegm, fevers or chills. Patient was noted to be desaturating to 88% with ambulation with PT today in the ER. - Titrate to maintain sats > 92%; trending pulse oximetry pending - WBC WNL - Trops WNL x 2 - BNP: 315 - EKG with ST depressions in anterolateral leads --> resolved with repeat EKG - X-Ray Chest 1 View: Bibasilar subsegmental atelectasis. No consolidation. - ECHO: Normal biventricular sizes and wall thickness. Normal systolic function. Estimated ejection fraction is 65%. Biatrial enlargment. Mild to moderate tricuspid regurgitation. Pulmonary artery systolic pressure is 47mmHg. No prior echocardiogram available for direct comparison. - Monitor on telemetry - Early ambulation, up to the chair for all waking hours, IS use 10 x hour - Monitor strict I/Os, daily weights and cardiac diet - Duonebs PRN Back pain 07/03/2020 Assessment & Plan (07/05/2020 3:42 PM EDT): Patient presented to [facility] on 07/02 with right lower extremity weakness and numbness to the right lateral calf and back pain which started 1 month ago. Patient states that at baseline she is able to ambulate independently but over the course of the last month she will develop a sharp right lower back pain that radiates to the right LL which is alleviated by lying flat. She denies saddle anesthesia but does endorse occasional urinary and fecal incontinence d/t inability to make it to the bathroom in time bc she is in significant pain at home. No trauma and no fall prior to onset of symptoms but her legs have buckled subsequently. She was evaluated at [place] and labs were grossly unremarkable but MRI demonstrated grade 2 anterolisthesis at L5-S1 level with bilateral L5 pars defects and unroofed bulging disc contribute to severe foraminal encroachment and compression of both L5 nerve roots (L > R) without any central canal stenosis and right paracentral disc protrusion at L4-L% level with mass effect upon the right L5 nerve root, severe facet arthropathy, mild spondylitic changes and slight retrosubluxational the L3-L4 level. Patient was transferred to [facility] for Neurosurgery consult - Continues to endorse sharp pain of the lower back that radiates to bilateral LL (R > L); + straight leg test on the right - Currently denies saddle anesthesia but endorses loss of sensation on the lateral aspect of the the right calf - She feels the urge to urinate and defecate but is often incontinent d/t inability to make it to the bathroom in time d/t pain and weakness - MRI report as above - Evaluated by Neurosurgery: - No acute surgical intervention - Pain control - PT - Pain control: - Tylenol 650 mg Q6H for arthritic pain - Bengay for muscle pain - Gabapentin 100 mg Qpm for neuropathic pain - Lidocaine patch applied to the right lower back - PT/OT evaluation: recommend rehab - Bowel regimen - Incentive spirometer use GERD (gastroesophageal reflux disease) Assessment & Plan (07/03/2020 6:36 PM EDT): Continue famotidine 20 mg qpm A-fib 07/03/2020 Assessment & Plan (07/04/2020 2:43 PM EDT): - Monitor on telemetry - Replace to maintain K > 4 and Mg > 2 - Rate control with metoprolol 100 mg BID - Due to elevated [id number] score, anticoagulate with rivaroxaban - [id number] Stroke Risk (5-year stroke rate based on score) N/A 2 - 4 Points: 11-19% 5 - 6 Points: 30-41% >= 7 Points: 41-56% Last Change: N/A This score determines the patient's risk of having a stroke if the patient has atrial fibrillation. This score is not applicable to this patient. Components are not calculated. - ECHO pending Lightheadedness 07/03/2020 Assessment & Plan (07/05/2020 3:43 PM EDT): Patient had an episode of lightheadedness when working with PT on day of admission. Improved. Symptoms likely 2/2 vasovagal from pain vs dehydration vs CVA vs vertigo - Orthostatics negative - Pain control - Resolved Decreased functional mobility Impaired mobility and ADLs Social History Tobacco Use Types Packs/Day Years Used Date Smoking Tobacco: Never Smokeless Tobacco: Never Alcohol Use Standard Drinks/Week Comments Never 0 (1 standard drink = 0.6 oz pur e alcohol) Comments No Sex and Gender Information Value Date Recorded Sex Assigned at Not on file Legal Sex Female 10:10 PM EDT Gender Identity Not on file Sexual Orientation Not on file Last Filed Vital Signs Vital Sign Reading Time Taken Comments Blood Pressure 121/69 07/06/2020 11:46 AM EDT Pulse 70 07/06/2020 11:46 AM EDT Temperature 36.5 ??C (97.7 ??F) 07/06/2020 11:46 AM E DT Respiratory Rate 18 07/06/2020 11:46 AM EDT Oxygen Saturation 97% 07/06/2020 11:46 AM EDT Inhaled Oxygen Concentration - - Weight 84.9 kg (187 lb 2.7 oz) 07/05/2020 7:00 A M EDT Height 152.4 cm (5') 07/05/2020 7:00 AM EDT Body Mass Index 36.55 07/05/2020 7:00 AM EDT Plan of Treatment Not on file Procedures * Due to [place] law, this organization might not be sharing negative HIV tests. Procedure Name Priority Date/Time Associated Diagnosis Comments COMPREHENSIVE METABOLIC PANEL Timed 07/06/2020 5:21 AM EDT HEMOGLOBIN A1C Routine 07/04/2020 6:47 AM EDT from Last 3 Months or Most Recently Relevant to Health Maintenance Results * Due to [place] law, this organization might not be sharing negative HIV tests. * (ABNORMAL) Comprehensive Metabolic Panel (07/06/2020 5:21 AM EDT) NA 140 135 - 145 mmol/L 07/06/2020 6:02 AM [facility] K 4.0 3.5 - 5.3 mmol/L 07/06/2020 6:02 AM [facility] Cl 104 97 - 110 mmol/L 07/06/2020 6:02 AM [facility] CO2 33(H) 24 - 32 mmol/L 07/06/2020 6:02 AM [facility] Anion Gap 3(L) 5 - 15 07/06/2020 6:02 AM [facility] Glucose 87 70 - 99 mg/dL 07/06/2020 6:02 AM [facility] Creatinine 1.01 0.50 - 1.20 mg/dL 07/06/2020 6:02 AM [facility] eGFR Non- 54(L) >=90 mL/min/BS A 07/06/2020 6:02 AM [facility] eGFR 62(L) >=90 mL/min/BS A 07/06/2020 6:02 AM [facility] Comment: Units = mL/min/1.73 m2 Glomerular Filtration Rate (GFR) is estimated based on the CKD-EPI Creatinine Equation (2009). Stage ?Description ? GFR 1 ? Normal ? >=90 mL/min/BSA 2 ? Mildly decreased GFR ? 60-89 mL/min/BSA 3 ? Moderately decreased GFR ? 30-59 mL/min/BSA 4 ? Severely decreased GFR ? 15-29 mL/min/BSA 5 ? Kidney Failure ? <15 mL/min/BSA Calcium 8.9 8.7 - 10.7 mg/dL 07/06/2020 6:02 AM EDT [facility] Total Protein 6.2 6.0 - 8.0 g/dL 07/06/2020 6:02 AM EDT [facility] Albumin 3.5 3.5 - 4.8 g/dL 07/06/2020 6:02 AM EDT [facility] Bilirubin, Total 0.6 0.3 - 1.2 mg/dL 07/06/2020 6:02 AM EDT [facility] Alkaline Phosphatase 88 30 - 115 U/L 07/06/2020 6:02 AM EDT [facility] AST 14 10 - 40 U/L 07/06/2020 6:02 AM EDT [facility] ALT 9(L) 10 - 40 U/L 07/06/2020 6:02 AM EDT [facility] BUN 24(H) 7 - 23 mg/dL 07/06/2020 6:02 AM EDT [facility] Blood Structure of peripheral vein / Unknown Venipuncture / Unknown 07/06/2020 5:21 AM EDT 07/06/2020 5:28 AM EDT us Mell Damon MD LAB BLOOD ORDERABLES Final Resul t [facility] [address] [place] [address], * (ABNORMAL) Hemoglobin A1c (07/04/2020 6:47 AM EDT) Hemoglobin A1C 7.0(H) <5.7 % of total Hgb 07/04/2020 1:43 PM EDT [facility] Comment: For someone without known diabetes, a hemoglobin A1c value of 6.5% or greater indicates that they may have diabetes and this should be confirmed with a follow-up test. For someone with known diabetes, a value <7% indicates that their diabetes is well controlled and a value greater than or equal to 7% indicates suboptimal control. A1c targets should be individualized based on duration of diabetes, age, comorbid conditions, and other considerations. Currently, no consensus exists regarding use of hemoglobin A1c for diagnosis of diabetes for children. ?? eAG (MG/DL) 154 (calc) 07/04/2020 1:43 PM EDT [facility] eAG (MMOL/L) 8.5 (calc) 07/04/2020 1:43 PM EDT [facility] Blood Structure of peripheral vein / Unknown Venipuncture / Unknown 07/04/2020 6:47 AM EDT 07/04/2020 7:05 AM EDT [facility] - 07/04/2020 1:43 PM EDT [facility] Received Date: Mell Damon MD LAB BLOOD ORDERABLES Final Resul t [facility] [address] [facility] [address], [place] [address], [facility] [address] [facility] [address], [place] [address], from Last 3 Months or Most Recently Relevant to Health Maintenance Insurance [employer] Advance Directives * DNR/DNI (Latest Code Status on File) Date Activated Date Inactivated Comments 07/03/2020 6:45 PM 07/06/2020 3:22 PM * Presumed Full Code Date Activated Date Inactivated Comments 07/03/2020 3:06 PM 07/03/2020 6:45 PM Care Teams Spring Tier Relationship Specialty Start Date End Date Geno Shields [address] [place] [address] PCP - General 07/03/20
--- OUTSIDE RECORDS SUMMARY | 2024-06-01 15:39 | XMS_ITS | Clinical Summary ---
Author Organization [facility] Address [address] [place] [address] Care Team Providers Care Lawn Care Worker Name Role Phone Geno Shields Primary Care Provider Allergies No known active allergies Medications albuterol [...] of CABG > 10 years ago in [place]. Patient does not follow with a radiology transcriptionist at present. - Continue Aspirin 81 mg [...] (07/05/2020 3:42 PM EDT): Patient presented to [facility] on 07/02 with right lower extremity weakness [...] have buckled subsequently. She was evaluated at [place] and labs were grossly unremarkable but MRI [...] the L3-L4 level. Patient was transferred to [facility] for Neurosurgery consult - Continues [...] 100 mg BID - Due to elevated [id number] score, anticoagulate with rivaroxaban - [id number] Stroke Risk (5-year stroke rate based on [...] 07/05/2020 7:00 AM EDT Plan of Treatment Health Maintenance Due Date Last Done Comments Ophthalmology Exam 1950 Urine Microalbumin 1950 Pneumococcal Vaccine: 50+ Years (1 of 2 - PCV) 1961 DTaP,Tdap,and Td Vaccines (1 - Tdap) 1964 Osteoporosis Screening 1992 Zoster Vaccines (1 of 2) 1992 RSV Vaccine (60+ years old and patients) (1 - 1-dose 75+ series) 2017 Hemoglobin A1C 01/04/2021 07/04/2020 Basic Metabolic Panel 07/06/2021 07/06/2020 , 07/05/2020, 07/04/2020, Additional history exists COVID-19 Vaccine ( season) 2023 Alcohol/Substance Use Screening 02/17/2024 Depression Screening and Follow-Up 02/17/2024 Health Care Proxy Review 02/17/2024 Social Drivers of Health Annual Screening 02/17/2024 Influenza Vaccine (Season Ended) 2024 Hepatitis B Vaccines Aged Out No long er eligible based on patient's age to complete this topic Procedures * Due to [facility] law, this organization might not be sharing negative HIV tests. Procedure Name Priority Date/Time Associated Diagnosis Comments COMPREHENSIVE METABOLIC PANEL Timed 07/06/2020 5:21 AM EDT HEMOGLOBIN A1C Routine 07/04/2020 6:47 AM EDT from Last 3 Months or Most Recently Relevant to Health Maintenance Results * Due to [facility] law, this organization might not be sharing negative HIV tests. * (ABNORMAL) Comprehensive Metabolic Panel (07/06/2020 5:21 AM EDT) NA 140 135 - 145 mmol/L 07/06/2020 6:02 AM EDT [facility] K 4.0 3.5 - 5.3 mmol/L 07/06/2020 6:02 AM EDT [facility] Cl 104 97 - 110 mmol/L 07/06/2020 6:02 AM EDT [facility] CO2 33(H) 24 - 32 mmol/L 07/06/2020 6:02 AM EDT [facility] Anion Gap 3(L) 5 - 15 07/06/2020 6:02 AM EDT [facility] Glucose 87 70 - 99 mg/dL 07/06/2020 6:02 AM EDT [facility] Creatinine 1.01 0.50 - 1.20 mg/dL 07/06/2020 6:02 AM T [facility] eGFR Non- 54(L) >=90 mL/min/BS A 07/06/2020 6:02 AM [facility] eGFR 62(L) >=90 mL/min/BS A 07/06/2020 6:02 AM [facility] Comment: Units = mL/min/1.73 [...] 8.7 - 10.7 mg/dL 07/06/2020 6:02 AM [facility] Total Protein 6.2 6.0 - 8.0 g/dL 07/06/2020 6:02 AM [facility] Albumin 3.5 3.5 - 4.8 g/dL 07/06/2020 6:02 AM [facility] Bilirubin, Total 0.6 0.3 - 1.2 mg/dL 07/06/2020 6:02 AM [facility] Alkaline Phosphatase 88 30 - 115 U/L 07/06/2020 6:02 AM [facility] AST 14 10 - 40 U/L 07/06/2020 6:02 AM [facility] ALT 9(L) 10 - 40 U/L 07/06/2020 6:02 AM EDT [facility] BUN 24(H) 7 - 23 mg/dL 07/06/2020 6:02 AM EDT [facility] Blood Structure of peripheral vein / Unknown Venipuncture / Unknown 07/06/2020 5:21 AM EDT 07/06/2020 5:28 AM EDT Mell Damon MD LAB BLOOD ORDERABLES Final Resul t [facility] [address] [place] [address], * (ABNORMAL) Hemoglobin A1c (07/04/2020 6:47 AM EDT) Hemoglobin A1C 7.0(H) <5.7 % of total Hgb 07/04/2020 1:43 PM EDT [facility] Comment: For someone without known diabetes, a [...] (MG/DL) 154 (calc) 07/04/2020 1:43 PM EDT [facility] eAG (MMOL/L) 8.5 (calc) 07/04/2020 1:43 PM EDT [facility] Blood Structure of peripheral vein / Unknown Venipuncture / Unknown 07/04/2020 6:47 AM EDT 07/04/2020 7:05 AM EDT Narrative [facility] - 07/04/2020 1:43 PM EDT [facility] Received Date: us Mell Damon MD LAB BLOOD ORDERABLES Final Resul t [facility] [address], [place] [address], [place] [phone] [facility] [address], [place] [address], [place] [phone] from Last 3 Months or Most Recently Relevant to Health Maintenance Insurance [place]SE [place]ENZUEL[place] [id number] Advance Directives * DNR/DNI (Latest Code Status on File) Date Activated Date Inactivated Comments 07/03/2020 6:45 PM 07/06/2020 3:22 PM * Presumed Full Code Date Activated Date Inactivated Comments 07/03/2020 3:06 PM 07/03/2020 6:45 PM Care Teams Lawn Care Worker Relationship Specialty Start Date End Date Geno Shields [address] [place] [id number] PCP - General 07/03/20
--- OUTSIDE RECORDS SUMMARY | 2024-06-01 15:39 | XMS_ITS | Clinical Summary ---
Author Organization [facility] Address [address] [place] [phone] Phone Care Team Providers Care Editorial Specialist Name Role Phone Rianna Buenrostro Primary Care Provider [phone] Social History Tobacco Use Types Packs/Day Years Used Date Smoking Tobacco: Never Assessed Comments Unknown Sex and Gender Information Value Date Recorded Sex Assigned at Not on file Legal Sex Female 4:31 PM EST Gender Identity Not on file Sexual Orientation Not on file Plan of Treatment Upcoming Encounters Date Type Department Care Team (Late st Contact Info) Description 07/05/2024 3:30 PM EDT Office Visit [facility] [address] [address] Ever Akins MD [address] [address] Health Maintenance Due Date Last Done Comments Diabetes: Hemoglobin A1C 04/26/2024 07/04/2020 Diabetes: Ophthalmology Exam 04/26/2024 Diabetes: Pedal Pulse Checked 04/26/2024 Diabetes: Sensory Foot Exam 04/26/2024 Diabetes: Visual Foot Exam 04/26/2024 Influenza Vaccine (Season Ended) 2024 Pneumococcal Vaccine: 50+ Years Completed 10/29/2017, 06/18/2017 Pneumococcal Vaccine: Peds ( 0 to 5 Years) and At-Risk Patients (6 to 49 Years) Discontinued 10/29/2017, 06/18/2017 Hepatitis B Vaccine Aged Out No longe r eligible based on patient's age to complete this topic Insurance [facility] MCR ([id number]) [place] [id number] Care Teams Editorial Specialist Relationship Specialty Start Date End Date Rianna Buenrostro [address] [place] [address], [address] [place] [address] PCP - General 04/22/24
== END 2024-06-01 14:33 | disposition home or self-care (01) ==
PROVIDERS: PCP Nurse Practitioner Family; Visit Provider Nurse Practitioner Family
DX: J96.11 Chronic respiratory failure with hypoxia (principal); I27.20 Pulmonary hypertension, unspecified; J69.0 Pneumonitis due to inhalation of food and vomit
CPT/HCPCS: 99204

== ENCOUNTER → 2024-06-01 13:13 | Outpatient (BNVA) | payer OTHER, SELFPAY | PROVIDERS: PCP Nurse Practitioner Family; Visit Provider Nurse Practitioner Family | DX: J96.11 Chronic respiratory failure with hypoxia (principal); I27.20 Pulmonary hypertension, unspecified; J69.0 Pneumonitis due to inhalation of food and vomit; R91.8 Other nonspecific abnormal finding of lung field; Z95.1 Presence of aortocoronary bypass graft; Z99.81 Dependence on supplemental oxygen | CPT/HCPCS: 99202 ==

== ENCOUNTER → 2024-08-26 14:10 | Outpatient (REF) | payer OTHER, SELFPAY ==
--- OUTSIDE RECORDS SUMMARY | 2024-08-26 14:13 | XMS_ITS | Clinical Summary ---
Author Organization [facility] Address [address] [place] [address] Care Team Providers Care Farm Hand Name Role Phone Geno Shields Primary Care Provider [phone] Allergies No known active allergies Medications albuterol [...] of CABG > 10 years ago in [place]. Patient does not follow with a coremaking machine operator at present. - Continue Aspirin 81 mg [...] (07/05/2020 3:42 PM EDT): Patient presented to [facility] on 07/02 with right lower extremity weakness [...] have buckled subsequently. She was evaluated at [facility] and labs were grossly unremarkable but MRI [...] the L3-L4 level. Patient was transferred to [facility] for Neurosurgery consult - Continues to [...] 100 mg BID - Due to elevated [id number] score, anticoagulate with rivaroxaban - [id number] Stroke Risk (5-year stroke rate based on [...] 70 07/06/2020 11:46 AM EDT Temperature 36.5 C (97.7 F) 07/06/2020 11:46 AM EDT Respiratory Rate 18 07/06/2020 11:46 AM EDT [...] of Health Annual Screening 02/17/2024 Influenza Vaccine (#1) 2024 Hepatitis B Vaccines Aged Out No long er eligible based on patient's age to complete this topic Procedures * Due to [place] [employer] law, this organization might not be sharing negative HIV tests. Procedure Name Priority Date/Time Associated Diagnosis Comments COMPREHENSIVE METABOLIC PANEL Timed 07/06/2020 5:21 AM EDT HEMOGLOBIN A1C Routine 07/04/2020 6:47 AM EDT from Last 3 Months or Most Recently Relevant to Health Maintenance Results * Due to [facility] law, this organization might not be sharing negative HIV tests. * (ABNORMAL) Comprehensive Metabolic Panel (07/06/2020 5:21 AM EDT) NA 140 135 - 145 mmol/L 07/06/2020 6:02 AM EDT [facility] K 4.0 3.5 - 5.3 mmol/L 07/06/2020 6:02 AM EDT [facility] Cl 104 97 - 110 mmol/L 07/06/2020 6:02 AM EDT [facility] CO2 33(H) 24 - 32 mmol/L 07/06/2020 6:02 AM EDT [facility] Anion Gap 3(L) 5 - 15 07/06/2020 6:02 AM EDT [facility] Glucose 87 70 - 99 mg/dL 07/06/2020 6:02 AM EDT [facility] Creatinine 1.01 0.50 - 1.20 mg/dL 07/06/2020 6:02 AM EDT [facility] eGFR Non- 54(L) >=90 mL/min/BS A 07/06/2020 6:02 AM T [facility] eGFR 62(L) >=90 mL/min/BS A 07/06/2020 6:02 AM T [facility] Comment: Units = mL/min/1.73 m2 Glomerular Filtration Rate (GFR) is estimated based on the CKD-EPI Creatinine Equation (2009). Stage Description GFR 1 Normal >=90 mL/min/BSA 2 Mildly decreased GFR 60-89 mL/min/BSA 3 Moderately decreased GFR 30-59 mL/min/BSA 4 Severely decreased GFR 15-29 mL/min/BSA 5 Kidney Failure <15 mL/min/BSA Calcium 8.9 8.7 - 10.7 mg/dL 07/06/2020 6:02 AM T [facility] Total Protein 6.2 6.0 - 8.0 g/dL 07/06/2020 6:02 AM [facility] Albumin 3.5 3.5 - 4.8 g/dL 07/06/2020 6:02 AM [facility] Bilirubin, Total 0.6 0.3 - 1.2 mg/dL 07/06/2020 6:02 AM [facility] Alkaline Phosphatase 88 30 - 115 U/L 07/06/2020 6:02 AM T [facility] AST 14 10 - 40 U/L 07/06/2020 6:02 AM [facility] ALT 9(L) 10 - 40 U/L 07/06/2020 6:02 AM [facility] BUN 24(H) 7 - 23 mg/dL 07/06/2020 6:02 AM [facility] Blood Structure of peripheral vein / Unknown Venipuncture / Unknown 07/06/2020 5:21 AM EDT 07/06/2020 5:28 AM EDT Mell Damon MD LAB BLOOD ORDERABLES Final Resul t Performing Organization Address [facility] Co de Phone Number [facility] [address] [place] [address], * (ABNORMAL) Hemoglobin A1c (07/04/2020 6:47 AM EDT) Hemoglobin A1C 7.0(H) <5.7 % of total Hgb 07/04/2020 1:43 PM EDT [facility] Comment: For someone without known diabetes, a [...] A1c for diagnosis of diabetes for children. eAG (MG/DL) 154 (calc) 07/04/2020 1:43 PM EDT [facility] eAG (MMOL/L) 8.5 (calc) 07/04/2020 1:43 PM EDT [facility] Blood Structure of peripheral vein / Unknown Venipuncture / Unknown 07/04/2020 6:47 AM EDT 07/04/2020 7:05 AM EDT [facility] - 07/04/2020 1:43 PM EDT [facility] Received Date: Mell Damon MD LAB BLOOD ORDERABLES Final Resul t Performing Organization Address [facility] Co de Phone Number [facility] [address], [place] [address], [place] [phone] [employer] [facility] [address], [place] [address], [place] [phone] from Last 3 Months or Most Recently Relevant to Health Maintenance Insurance [facility] [employer] JOSE [place]ENZUELA [id number] Advance Directives * DNR/DNI (Latest Code Status on File) Date Activated Date Inactivated Comments 07/03/2020 6:45 PM 07/06/2020 3:22 PM * Presumed Full Code Date Activated Date Inactivated Comments 07/03/2020 3:06 PM 07/03/2020 6:45 PM Care Teams Farm Hand Relationship Specialty Start Date End Date Geno Shields [address] [place] [address] PCP - General 07/03/20
--- OUTSIDE RECORDS SUMMARY | 2024-08-26 14:13 | XMS_ITS | Data Portability ---
Author Organization [place] - [employer] [facility], [facility] Address [address] [place] [id number] Care Team Providers Care Mill Operator Head Name Role Phone [facility] Referring Provider Assessment Encounter Date Assessment Date Assessment LastModified by Organization Details LastModified Time 06/02/2022 06/02/2022 I have reviewed and agree with the assessment and plan as documented by the band teacher. I provided real time medical direction for this encounter and was immediately available to provide additional phone based assistance as needed. History as noted by band teacher. Pt with history of CHF, COPD, HTN, DM. She and her son report about 6 weeks of a cough productive of clear sputum. She was seen by Fred on 05/20 and treated with azithromycin and 5 days of prednisone. She also received a duoneb treatment at that visit and reports that the neb did help her cough. The antibiotic and prednisone also helped her symptoms but after she completed those medications, the cough has worsened. She continues to intermittently produce clear sputum. She denies any CP or SOB. She has been taking an OTC cough medication that contains dextromethorphan and guaifenesen. Son also reports that the pt has been complaining of dysuria for about 2 weeks, and yesterday he noted that the pt seemed slightly confused from her baseline, although she seems improved today. No fevers, chills or vomiting. Pt tested negative for Covid and Flu at her 05/20 visit. On exam, pt appears comfortable in no distress. Vitals are ok, she is afebrile with normal O2 sat. Lungs clear, no wheezing. No peripheral edema. Urine dip: + for leukocytes and blood, negative nitrite. Impression: 1. Chronic cough. Pt with history of COPD, now with cough x6 weeks. Had improvement after a nebulizer treatment 2 weeks ago and a 5 day course of antibiotics and prednisone but symptoms now worse again. No wheezing or evidence of fluid overload on exam. Suspect this is related to her COPD and likely post viral bronchitis. Pt had been on albuterol and Symbicort inhalers in the past but is no longer taking them. Son reports that the pt had problems using the inhalers correctly in the past but they do have a nebulizer machine at home but no medication for it. Pt medicated with prednisone 60mg po now and I prescribe a taper from 60mg to 20 mg over 6 more days to start tomorrow. I also prescribe albuterol 2.5mg/3ml vials and instruct the son that pt should try nebulizer treatments with this tid prn cough to see if this helps. 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 2. UTI. Pt with about 2 weeks of dysuria and history of UTI in the past. Son though pt seemed mildly confused yesterday, but today she appears well. Urine dip is c/w UTI today. Urine culture obtained and will be sent to [facility] lab. Pt medicated with cefpodoxime 200mg po now and I prescribe 200mg bid x5 days. Primary care team needs to follow up with the pt and her son later this week to ensure that her cough and urine symptoms are feeling improved and to check the results of her urine culture and sensitivities. Pt and her son instructed to seek medical attention right away with any worsening or new symptoms, which are reviewed with them. [email or web address] Not available 06/02/2022 15:25:20 08/21/2022 08/21/2022 82 yo F now ~1 m o s/p treatment for pneumonia, son calling for follow up to ensure symptoms resolved. On exam VS wnl. Pt comfortable with no increased work of breathing. Lung and CV exams wnl. Patient is using home meds as instructed. No further treatment indicated at this time. Would recommend further routine follow up with PCP. [email or web address] Not available 08/21/2022 21:38:29 03/23/2023 03/23/2023 As noted, we alexandrea abrams called to see this patient regarding concerns of covid. Evaluation in the field was performed by my band teacher colleague, as noted above, I provided real-time direction and supervision for this visit. The evaluation revealed the patient was diagnosed with covid and started on molnuprivir. Called for re-eval. Vitals stable and reassuring. on arrival, chest exam notable for b/l wheezing which improved significantly with duoneb administration. Running low on nebs. Still some faint residual ronchi post neb. Impression: covid, recovering, very mild COPD exacerbation Plan: continue duonebs, increase to QID while recovering mucinex prn Disposition: We discussed the diagnostic uncertainty of home visits and the risk associated with this. In this case, the patient and I felt this to be an acceptable and reasonable amount of risk given the benefit of avoiding an ED visit. We discussed the need to seek care urgently/emergentl y in the setting of any new or worsening serious symptoms, particularly worsening dyspnea [email or web address] Not available 03/23/2023 15:11:41 Plan of Treatment Reminders Order Date Submit Date Provider Last Modified By Organization Details Last Modified Time Details Appointments None recorded. Lab culture, urine 2022 023 [facility] (Centralized Electronic Ordering - All Locations), Patient Can Go To The Location Of Their Choice, [id number] 3 10:37:48 urinalysis, dipstick [address], [phone] 3 15:02:07 Referral None recorded. Procedures None recorded. Surgeries None recorded. Imaging None recorded. Medication Orders ipratropium 0.5 mg-albutero l 3 mg (2.5 mg base)/3 mL nebulizatio n soln 2023 024 [place], [place] - [id number], [address] [place], [address], 4 15:52:52 Mucinex 600 mg tablet, extended release 2023 024 [place] - [id number], [address] [place], [address], 4 12:15:44 cefpodoxime 200 mg tablet 2022 023 [place], [place] - [id number], [address], [place], [address], 3 15:02:07 cefpodoxime 200 mg tablet 2022 023 [facility] - [id number], [address], [place], [address], 3 15:11:28 prednisone 20 mg tablet 2022 023 [facility], [place] - [id number], [address], [place], [address], 3 15:02:07 prednisone 20 mg tablet 2022 023 [facility], [facility] [id number], [address], [place], [address], 3 15:11:28 albuterol sulfate 2.5 mg/3 mL (0.083 %) solution for nebulizatio n 2022 023 [facility], [place] - [id number], [address], [place], [address], 3 15:11:29 azithromyci n 250 mg tablet 2022 023 [facility] [id number], [address], [place], [address], 3 16:31:42 prednisone 20 mg tablet 2022 023 [facility] [id number], [address], [place], [address], 3 16:31:41 Patient TargetsNo targets recorded. Patient InstructionsNo instructions recorded. Reason for Referral None Reported. Results Created Date Observation Date Name Description Value Unit Range Abnormal Flag Note LastModifiedBy Organization Detail LastModifiedTime 03/11/1903/11/2022 rapid SARS CoV 2 Ag, QL IA, respi rator y speci men rapid SARS CoV 2 Ag, QL IA, respiratory specimen negati ve Not Available [facility] - Inst ed [address] [place] [address], [phone] 03/11/2022 13:37:09 03/11/19 23 03/11/2022 rapid flu (A+B) Flu negati ve Not Available Main - Inst ed [address] [place] [address], [phone] 03/11/2022 13:37:07 06/03/19 23 06/02/2022 URINE CULTU RE specimen description URINE Not Available [facility] (Centralized [facility] Ordering - All Locations) Patient Can Go To The Location Of Their Choice, 06/05/2022 10:37:48 06/03/1906/02/2022 URINE CULTU RE special requests NONE Not Available [facility] (Centralized [facility] Ordering - All Locations) Patient Can Go To The Location Of Their Choice, 06/05/2022 10:37:48 06/03/1906/05/2022 URINE CULTU RE culture abnormal >100, 000 COL/M L CITRO BACTE R (DIVE RSUS) DIANNA I This isola te was ident ified using Maldi -TOF syste m These AST resul ts were perfo rmed on the Micro scan ID and AST syste m >100, 000 COL/M L KLEBS IELLA PNEUM ONIAE These AST resul ts were perfo rmed on the Micro scan ID and AST syste m Not Available [facility] (Centralized Electronic Ordering - All Locations) Patient Can Go To The Location Of Their Choice, 06/05/2022 10:37:48 06/03/1906/05/2022 URINE CULTU RE report status FINAL 2022 Not Available [facility] (Centralized Electronic Ordering - All Locations) Patient Can Go To The Location Of Their Choice, 06/05/2022 10:37:48 06/03/1906/05/2022 URINE CULTU RE organism ORGAN ISM >100, 000 COL/M L CITRO BACTE R (DIVE RSUS) DIANNA I This isola te was ident ified using Maldi -TOF syste m These AST resul ts were perfo rmed on the Micro scan ID and AST syste m Not Available [facility] (Centralized Electronic Ordering - All Locations) Patient Can Go To The Location Of Their Choice, 06/05/2022 10:37:48 06/03/1906/05/2022 URINE CULTU RE method METHOD MIN. INHIB. CONC. (MCG/M L) Not Available [facility] (Centralized Electronic Ordering - All Locations) Patient Can Go To The Location Of Their Choice, 06/05/2022 10:37:48 06/03/1906/05/2022 URINE CULTU RE ampicillin AMPICI LLIN RESIST ANT resistant Not Available [facility] (Centralized Electronic Ordering - All Locations) Patient Can Go To The Location Of Their Choice, 06/05/2022 10:37:48 06/03/1906/05/2022 URINE CULTU RE ampicillin/s ulbactam AMPICI LLIN/S ULBACT AM SUSCEP TIBLE susceptib le Not Available [facility] (Centralized Electronic Ordering - All Locations) Patient Can Go To The Location Of Their Choice, 06/05/2022 10:37:48 06/03/1906/05/2022 URINE CULTU RE amoxicillin/ clavulanic acid AMOXIC ILLIN/ CLAVUL AN SUSCEP TIBLE susceptib le Not Available [facility] (Centralized Electronic Ordering - All Locations) Patient Can Go To The Location Of Their Choice, 06/05/2022 10:37:48 06/03/1906/05/2022 URINE CULTU RE cefazolin CEFAZO ASHLEY SUSCEP TIBLE susceptib le Not Available [facility] (Centralized Electronic Ordering - All Locations) Patient Can Go To The Location Of Their Choice, 06/05/2022 10:37:48 06/03/1906/05/2022 URINE CULTU RE cefepime CEFEPI ME SUSCEP TIBLE susceptib le Not Available [facility] (Centralized Electronic Ordering - All Locations) Patient Can Go To The Location Of Their Choice, 06/05/2022 10:37:48 06/03/19 23 06/05/2022 URINE CULTU RE ceftriaxone CEFTRI AXONE SUSCEP TIBLE susceptib le Not Available [facility] (Centralized Electronic Ordering - All Locations) Patient Can Go To The Location Of Their Choice, 06/05/2022 10:37:48 06/03/1906/05/2022 URINE CULTU RE ciprofloxaci n CIPROF LOXACI N SUSCEP TIBLE susceptib le Not Available [facility] (Centralized Electronic Ordering - All Locations) Patient Can Go To The Location Of Their Choice, 06/05/2022 10:37:48 06/03/1906/05/2022 URINE CULTU RE ertapenem ERTAPE NEM SUSCEP TIBLE susceptib le Not Available [facility] (Centralized Electronic Ordering - All Locations) Patient Can Go To The Location Of Their Choice, 06/05/2022 10:37:48 06/03/1906/05/2022 URINE CULTU RE gentamicin GENTAM ICIN SUSCEP TIBLE susceptib le Not Available [facility] (Centralized Electronic Ordering - All Locations) Patient Can Go To The Location Of Their Choice, 06/05/2022 10:37:48 06/03/1906/05/2022 URINE CULTU RE levofloxacin LEVOFL OXACIN SUSCEP TIBLE susceptib le Not Available [facility] (Centralized Electronic Ordering - All Locations) Patient Can Go To The Location Of Their Choice, 06/05/2022 10:37:48 06/03/1906/05/2022 URINE CULTU RE meropenem MEROPE NEM SUSCEP TIBLE susceptib le Not Available [facility] (Centralized Electronic Ordering - All Locations) Patient Can Go To The Location Of Their Choice, 06/05/2022 10:37:48 06/03/1906/05/2022 URINE CULTU RE nitrofuranto in NITROF URANTO IN SUSCEP TIBLE susceptib le Not Available [facility] (Centralized Electronic Ordering - All Locations) Patient Can Go To The Location Of Their Choice, 06/05/2022 10:37:48 06/03/1906/05/2022 URINE CULTU RE piperacillin /tazobactam PIPERA CILLIN /TAZOB AC SUSCEP TIBLE susceptib le Not Available [facility] (Centralized Electronic Ordering - All Locations) Patient Can Go To The Location Of Their Choice, 06/05/2022 10:37:48 06/03/19 06/05/2022 URINE CULTU RE trimeth/sulf amethox TRIMET H/SULF AMETHO X SUSCEP TIBLE susceptib le Not Available [facility] (Centralized Electronic Ordering - All Locations) Patient Can Go To The Location Of Their Choice, 06/05/2022 10:37:48 06/03/1906/05/2022 URINE CULTU RE tetracycline TETRAC YCLINE SUSCEP TIBLE susceptib le Not Available [facility] (Centralized Electronic Ordering - All Locations) Patient Can Go To The Location Of Their Choice, 06/05/2022 10:37:48 06/03/1906/05/2022 URINE CULTU RE organism ORGAN ISM >100, 000 COL/M L KLEBS IELLA PNEUM ONIAE These AST resul ts were perfo rmed on the Micro scan ID and AST syste m Not Available [facility] (Centralized Electronic Ordering - All Locations) Patient Can Go To The Location Of Their Choice, 06/05/2022 10:37:48 06/03/1906/05/2022 URINE CULTU RE method METHOD MIN. INHIB. CONC. (MCG/M L) Not Available [facility] (Centralized Electronic Ordering - All Locations) Patient Can Go To The Location Of Their Choice, 06/05/2022 10:37:48 06/03/1906/05/2022 URINE CULTU RE ampicillin AMPICI LLIN RESIST ANT resistant Not Available [facility] (Centralized Electronic Ordering - All Locations) Patient Can Go To The Location Of Their Choice, 06/05/2022 10:37:48 06/03/1906/05/2022 URINE CULTU RE ampicillin/s ulbactam AMPICI LLIN/S ULBACT AM SUSCEP TIBLE susceptib le Not Available [facility] (Centralized Electronic Ordering - All Locations) Patient Can Go To The Location Of Their Choice, 06/05/2022 10:37:48 06/03/1906/05/2022 URINE CULTU RE amoxicillin/ clavulanic acid AMOXIC ILLIN/ CLAVUL AN SUSCEP TIBLE susceptib le Not Available [facility] (Centralized Electronic Ordering - All Locations) Patient Can Go To The Location Of Their Choice, 06/05/2022 10:37:48 06/03/1906/05/2022 URINE CULTU RE cefazolin CEFAZO ASHLEY SUSCEP TIBLE susceptib le Not Available [facility] (Centralized Electronic Ordering - All Locations) Patient Can Go To The Location Of Their Choice, 06/05/2022 10:37:48 06/03/1906/05/2022 URINE CULTU RE cefepime CEFEPI ME SUSCEP TIBLE susceptib le Not Available [facility] (Centralized Electronic Ordering - All Locations) Patient Can Go To The Location Of Their Choice, 06/05/2022 10:37:48 06/03/1906/05/2022 URINE CULTU RE ceftriaxone CEFTRI AXONE SUSCEP TIBLE susceptib le Not Available [facility] (Centralized Electronic Ordering - All Locations) Patient Can Go To The Location Of Their Choice, 06/05/2022 10:37:48 06/03/1906/05/2022 URINE CULTU RE ciprofloxaci n CIPROF LOXACI N SUSCEP TIBLE susceptib le Not Available [facility] (Centralized Electronic Ordering - All Locations) Patient Can Go To The Location Of Their Choice, 06/05/2022 10:37:48 06/03/1906/05/2022 URINE CULTU RE ertapenem ERTAPE NEM SUSCEP TIBLE susceptib le Not Available [facility] (Centralized Electronic Ordering - All Locations) Patient Can Go To The Location Of Their Choice, 06/05/2022 10:37:48 06/03/1906/05/2022 URINE CULTU RE gentamicin GENTAM ICIN SUSCEP TIBLE susceptib le Not Available [facility] (Centralized Electronic Ordering - All Locations) Patient Can Go To The Location Of Their Choice, 06/05/2022 10:37:48 06/03/1906/05/2022 URINE CULTU RE levofloxacin LEVOFL OXACIN SUSCEP TIBLE susceptib le Not Available [facility] (Centralized Electronic Ordering - All Locations) Patient Can Go To The Location Of Their Choice, 06/05/2022 10:37:48 06/03/1906/05/2022 URINE CULTU RE meropenem MEROPE NEM SUSCEP TIBLE susceptib le Not Available [facility] (Centralized Electronic Ordering - All Locations) Patient Can Go To The Location Of Their Choice, 06/05/2022 10:37:48 06/03/1906/05/2022 URINE CULTU RE nitrofuranto in NITROF URANTO IN SUSCEP TIBLE susceptib le Not Available [facility] (Centralized Electronic Ordering - All Locations) Patient Can Go To The Location Of Their Choice, 06/05/2022 10:37:48 06/03/19 23 06/05/2022 URINE CULTU RE piperacillin /tazobactam PIPERA CILLIN /TAZOB AC SUSCEP TIBLE susceptib le Not Available [facility] (Centralized Electronic Ordering - All Locations) Patient Can Go To The Location Of Their Choice, 06/05/2022 10:37:48 06/03/1906/05/2022 URINE CULTU RE trimeth/sulf amethox TRIMET H/SULF AMETHO X SUSCEP TIBLE susceptib le Not Available [facility] (Centralized Electronic Ordering - All Locations) Patient Can Go To The Location Of Their Choice, 06/05/2022 10:37:48 06/03/1906/05/2022 URINE CULTU RE tetracycline TETRAC YCLINE SUSCE PTIBLE susceptib le Not Available [facility] (Centralized Electronic Ordering - All Locations) Patient Can Go To The Location Of Their Choice, 06/05/2022 10:37:48 06/03/1906/02/2022 urina lysis , dipst ick Leukocytes positi ve Not Available [facility] ed [address] [place] [address], [address] [place] [address] 06/02/2022 14:42:58 06/03/19 23 06/02/2022 urina lysis , dipst ick Nitrite negati ve Not Available [facility] ed [address] [place] [address], [address] [place] [address] 06/02/2022 14:42:58 06/03/19 23 06/02/2022 urina lysis , dipst ick Protein positi ve Not Available [facility] ed [address] [place] [address], [address] [place] [address] 06/02/2022 14:42:58 06/03/19 23 06/02/2022 urina lysis , dipst ick Blood positi ve Not Available [facility] ed [address] [place] [address], [address] [place] [address] 06/02/2022 14:42:58 Result Notes None recorded. Medical Equipment None Reported. Allergies No known drug allergies Medications Name Sig Start Date Stop Date Status Note LastModified by Organization Details LastModified Time furosemide 40 mg tablet TAKE 1 TABLET BY MOUTH two (2) times a day active Not Available Not Available No t Available prednisone 10 mg tablet Take 2 (10 mg tablets) every morning with food for 5 days. Then stop. active Not Available Not Available N ot Available atorvastatin 20 mg tablet TAKE 1 TABLET BY MOUTH ONCE DAILY active Not Available Not Available No t Available ipratropium 0.5 mg-albuterol 3 mg (2.5 mg base)/3 mL nebulization soln INHALE THE CONTENT OF 1 VIAL (3mls) VIA NEBULIZER machine 4 (FOUR) TIMES DAILY NEEDED active Not Available Not Available No t Available albuterol sulfate 2.5 mg/3 mL (0.083 %) solution for nebulization Inhale 3 mL 3 times a day by nebulizatio n route as needed for 10 days. active Not Available Not Available No t Available Vitamin C 500 mg tablet TAKE 1 TABLET BY MOUTH two (2) times a day active Not Available Not Available No t Available cefpodoxime 200 mg tablet Take 1 tablet twice a day by oral route for 5 days. active Not Available Not Available No t Available azithromycin 250 mg tablet 1 TABLET (250 MG) BY ORAL ROUTE ONCE DAILY FOR 4 DAYS active Not Available Not Available N ot Available diltiazem CD 180 mg capsule,exte nded release 24 hr TAKE 2 CAPSULES BY MOUTH ONCE DAILY active Not Available Not Available No t Available metoprolol tartrate 100 mg tablet TAKE 1 TABLET BY MOUTH two (2) times a day active Not Available Not Available No t Available sulfamethoxa zole 400 mg-trimethop rim 80 mg tablet TAKE 1 single strength tablet (400 MG, 80 MG) EVERY 12 HOURS FOR remainder OF 5 doses. TAKE medication FOR A total OF three DAYS.; DRINK plenty OF fluids active Not Available Not Available No t Available ampicillin 500 mg capsule active Not Available Not Available Not Available diltiazem CD 240 mg capsule,exte nded release 24 hr TAKE 1 CAPSULE BY MOUTH EVERY MORNING active Not Available Not Available No t Available prednisone 20 mg tablet Take 3 tabs po qdaily x2 days, thentake 2 tabs po qdaily x2 days, thentake 1 tab po qdaily x2 days active Not Available Not Available No t Available Alcohol Pads USE TO TEST FINGER STICK BLOOD SUGAR 3 (THREE) TIMES A DAY DIRECTED active Not Available Not Available Not Available dexamethason e 6 mg tablet TAKE 1 TABLET BY MOUTH DAILY FOR 6 DAYS active Not Available Not Available N ot Available metoprolol succinate ER 100 mg tablet,exten ded release 24 hr TAKE 2 TABLETS BY MOUTH ONCE DAILY active Not Available Not Available No t Available sertraline 100 mg tablet TAKE 1 TABLET BY MOUTH IN THE MORNING active Not Available Not Available Not Available Accu-Chek Softclix Lancets USE TO TEST FINGER STICK BLOOD SUGAR 4 (FOUR) TIMES DAILY active Not Available Not Available Not Available amlodipine 5 mg tablet TAKE ONE TABLET BY MOUTH DAILY active Not Available Not Available Not Available sulfamethoxa zole 800 mg-trimethop rim 160 mg tablet TAKE 1 TABLET BY MOUTH two (2) times a day FOR 3 DAYS active Not Available Not Available No t Available aspirin 81 mg tablet,delay ed release TAKE ONE TABLET BY MOUTH DAILY active Not Available Not Available Not Available methenamine hippurate 1 gram tablet TAKE 1 TABLET BY MOUTH two (2) times a day active Not Available Not Available No t Available famotidine 20 mg tablet TAKE ONE TABLET BY MOUTH AT BEDTIME active Not Available Not Available No t Available OneTouch Ultra Test strips USE TO TEST FINGER STICK BLOOD SUGAR 4 (FOUR) TIMES DAILY active Not Available Not Available Not Available amlodipine 10 mg tablet TAKE ONE TABLET BY MOUTH DAILY active Not Available Not Available Not Available benzonatate 100 mg capsule TAKE 1 CAPSULE BY MOUTH 3 (THREE) TIMES A DAY NEEDED FOR COUGH active Not Available Not Available No t Available levothyroxin e 50 mcg tablet TAKE 1 TABLET BY MOUTH ONCE DAILY active Not Available Not Available No t Available sertraline 25 mg tablet TAKE 1 TABLET BY MOUTH ONCE DAILY WITH 50 MG TABLETS active Not Available Not Available No t Available omeprazole 20 mg capsule,silverio yed release TAKE 1 CAPSULE BY MOUTH ONCE DAILY active Not Available Not Available No t Available digoxin 125 mcg (0.125 mg) tablet TAKE 1 TABLET BY MOUTH ONCE DAILY active Not Available Not Available No t Available estradiol 0.01% (0.1 mg/gram) vaginal cream INSERT 1 gram VAGINALLY ONCE DAILY AT BEDTIME active Not Available Not Available N ot Available methylpredni solone 4 mg tablets in a dose pack TAKE DIRECTED ON PACKAGE labeling FOR 6 DAYS active Not Available Not Available N ot Available albuterol sulfate HFA 90 mcg/actuatio n aerosol inhaler INHALE 1 PUFF BY MOUTH INTO THE lungs 4 (FOUR) TIMES DAILY NEEDED FOR SHORTNESS OF BREATH OR FOR WHEEZING active Not Available Not Available No t Available losartan 100 mg tablet TAKE 1 TABLET BY MOUTH ONCE DAILY active Not Available Not Available No t Available sertraline 50 mg tablet TAKE 1 TABLET BY MOUTH ONCE DAILY WITH 25 MG TABLETS active Not Available Not Available No t Available doxycycline hyclate 100 mg tablet TAKE 1 TABLET BY MOUTH two (2) times a day FOR 10 DAYS active Not Available Not Available No t Available Mucinex 600 mg tablet, extended release Take 1 tablet every 12 hours by oral route as needed for 30 days. 2023 active Not Available Not Available Not Avai lable Heartburn Relief (famotidine) 10 mg tablet TAKE 1 TABLET BY MOUTH two (2) times a day active Not Available Not Available No t Available Pain Relief Extra Strength (acetaminoph en) 500 mg tablet TAKE 1 TABLET BY MOUTH EVERY 4 HOURS NEEDED FOR PAIN active Not Available Not Available No t Available cholecalcife rol (vitamin D3) 25 mcg (1,000 unit) tablet TAKE 1 TABLET BY MOUTH ONCE DAILY active Not Available Not Available No t Available budesonide-f ormoterol HFA 160 mcg-4.5 mcg/actuatio n aerosol inhaler INHALE 2 PUFFS BY MOUTH two (2) times a day IN THE MORNING AND IN THE EVENING active Not Available Not Available No t Available FeroSul 325 mg (65 mg iron) tablet TAKE 1 TABLET BY MOUTH ONCE DAILY active Not Available Not Available No t Available Lantus Solostar U-100 Insulin 100 unit/mL (3 mL) subcutaneous pen INJECT 20 UNITS SUBCUTANEOU SLY ONCE DAILY active Not Available Not Available No t Available melatonin 5 mg tablet TAKE ONE TABLET BY MOUTH DAILY AT BEDTIME NEEDED FOR insomnia active Not Available Not Available No t Available GaviLyte-G 236 gram-22.74 gram-6.74 gram-5.86 gram oral solution fill container WITH WATER TO fill line AND DRINK 240ml BY MOUTH EVERY 10 MINUTES active Not Available Not Available No t Available [employer] [place] 31 gauge x 3/16 USE TO INJECT insulin DAILY DIRECTED active Not Available Not Available No t Available Xarelto 15 mg tablet TAKE 1 TABLET BY MOUTH EVERY EVENING active Not Available Not Available No t Available [facility] spacer USE WITH symbicort AND albuterol DIRECTED active Not Available Not Available Not Available Dexcom G7 Hearing Aid Fitter USE TO CHECK BLOOD SUGAR 4 (FOUR) TIMES DAILY active Not Available Not Available Not Available Dexcom G7 Sensor device CHECK BLOOD SUGAR 4 (FOUR) TIMES DAILY. replace sensor EVERY 10 DAYS active Not Available Not Available No t Available Vitals Date Recorded Respiratory rate Body temperature Oxygen saturation Oxygen saturation in Arterial blood by Pulse oximetry Inhaled oxygen flow rate Heart rate Systolic And Diastolic Provider Name and Address Organization Details Last Updated DateTime 3 18 /min 98.9 [degF] 97 % 97 % 2 L/min 92 /min 148/55 mm[Hg] Not Available [facility] - production 3 21:47:07 Date Recorded Heart rate Body temperature Respiratory rate Oxygen saturation Oxygen saturation in Arterial blood by Pulse oximetry Inhaled oxygen flow rate Oxygen saturation Oxygen saturation in Arterial blood by Pulse oximetry Inhaled oxygen flow rate Body height Body weight Systolic And Diastolic Provider Name and Address Organization Details Last Updated DateTime 4 86 /min 97.9 [degF] 18 /min 91 % 91 % 2 L/min 97 % 97 % 2 L/min 149. 86 cm 90364.7 2 g 149/88 mm[Hg] Not Available [facility] - production 4 15:05:58 Date Recorded Respiratory rate Body weight Oxygen saturation Oxygen saturation in Arterial blood by Pulse oximetry Heart rate Body temperature Body temperature Oxygen saturation Oxygen saturation in Arterial blood by Pulse oximetry Body weight Respiratory rate Heart rate Provider Name and Address Organization Details Last Updated DateTime 3 18 /min 88570.1 28 g 97 % 97 % 77 /min 97.6 [degF] 97.6 [degF] 97 % 97 % 94644.1 28 g 18 /min 77 /min Not Available [facility] - production 3 16:49:03 Date Recorded Systolic And Diastolic Systolic And Diastolic Provider Name and Address Organization Details Last Updated DateTime 05/20/2022 143/70 mm[Hg] 143/70 mm[Hg] Not Available [facility] production 05/20/2022 16:49:03 Date Recorded Body temperature Oxygen saturation Oxygen saturation in Arterial blood by Pulse oximetry Inhaled oxygen flow rate Respiratory rate Body weight Heart rate Body temperature Heart rate Body weight Respiratory rate Oxygen saturation Provider Name and Address Organization Details Last Updated DateTime 3 96.8 [degF] 99 % 99 % 1 L/min 18 /min 00362.3 52 g 78 /min 96.8 [degF] 78 /min 17017.3 52 g 18 /min 99 % Not Available [facility] - production 3 15:10:43 Date Recorded Oxygen saturation in Arterial blood by Pulse oximetry Inhaled oxygen flow rate Systolic And Diastolic Systolic And Diastolic Provider Name and Address Organization Details Last Updated DateTime 06/02/2022 99 % 1 L/min 145/59 mm[Hg] 145/59 mm[Hg] Not Available [facility] - production 3 15:10:43 Date Recorded Oxygen saturation Oxygen saturation in Arterial blood by Pulse oximetry Inhaled oxygen flow rate Respiratory rate Heart rate Body temperature Systolic And Diastolic Provider Name and Address Organization Details Last Updated DateTime 3 99 % 99 % 1 L/min 18 /min 73 /min 98.7 [degF] 156/79 mm[Hg] Not Available [facility] - production 3 18:02:22 Social History None recorded. Functional Status None recorded. Mental Status None recorded. Family History Nothing Reported. Medical History No medical history recorded. Gynecological HistoryNo gynecological history recorded. Obstetrics History GPAL:G 0 P 0 0 0 0 Past Encounters Encounter ID Performer Location Encounter Start Date Encounter Closed Date Diagnosis/Indication Diagnosis SNOMED-CT Code Diagnosis ICD10 Code Diagnosis Note [id number] Benjamin Strauss MD [facility] [address] [place] [address] [id number] 04/05/2021 18:15:56 09/03/2021 12:06:43 [id number] Katharina Hoyt MD [facility] [address] [place] [address] [id number] 01/03/2022 13:59:39 01/06/2022 13:00:38 Acute exacerbation of chronic obstructive pulmonary disease 747031016 J44.1 w/ hypoxia/ respirator y distress/f ailure - sat improved to 90 on duoneb- now wheezing audible- able to get EKG which showed possible ischemia - 911 ALS arrived before medic could give solumedrol or check BS- report called to provider at [facility] [id number] Marino Dick MD [facility] [address] [place] [address] [id number] 03/11/2022 13:34:38 03/13/2022 10:30:35 Viral upper respiratory tract infection [id number] J06.9 [id number] Joseph Damon MD Main [facility] [address] [place], [place] [phone] 03/21/2022 21:46:59 03/24/2022 12:27:32 History of urinary tract infection [id number] 107 Z87.440 This 81-year-ol d female has a history of UTIs and her PCP wanted her to be checked for a UTI today. She has no symptoms and her U/A was normal. I see no evidence of a UTI, so I did not recommend any specific treatment. The patient agreed with this plan. [id number] Cher Leyva MD [facility] [address] [place] [address] 0 05/20/2022 16:07:03 05/22/2022 10:26:44 Cough [id number] R05.9 cough x3 weeks, exam notable for diffuse wheezing with a question of R basilar rales. COVID, flu negative. VSS. Suspect COPD exacerbati on +/- atypical pna. Will trial 5d pred and azithromyc in. Educated on warning signs/sx. [id number] Marino Dick MD [facility] [address] [place] [address] 0 06/02/2022 14:32:26 06/03/2022 11:46:46 Chronic cough 48186538 R05.3 Urinary symptoms [id number] 08 R39.9 [id number] BOB MURRIETA MD [facility] [address] [place], [place] [phone] [id number] 08/21/2022 18:02:20 08/21/2022 23:29:35 Post-discharge follow-up [id number] Z09 [id number] SAMUEL HORN MD Main [facility] [address] [place], [place] [phone] 03/23/2023 15:05:46 03/24/2023 10:19:16 Chronic obstructive pulmonary disease 48613329 J44.9 Health Concerns Section Related Observation LastModified by Organization Detai ls LastModified Time None Recorded Concern Status LastModified by Organization Details LastModified Time None Recorded Advance Directives Directive None Recorded Payers Insurance Date Sequence Insurance Name Policy Number Policy Casey Covered Member ID Casey Member ID Guarantor Name 08/21/2022 1 [facility] - DOS PRIOR TO 2022 - DUAL ELIGIBLE (MEDICARE REPLACEMENT/ADV ANTAGE - HMO) Ratna Sarah [id number] Ratna Sarah 04/28/2023 1 [facility] - DOS ON OR AFTER 2022 - DUAL ELIGIBLE - HALFWAY OPTIONS AND ONE CARE (MEDICARE REPLACEMENT/ADV ANTAGE - HMO) Ratna Saarh [id number] Ratna Sarah Notes Date Note Type Note Provider Name and Address Organization Details Recorded Time 03/21/2022 text/html [facility] Nursing Assessment: Patient Reports: Painful urination; Painful urination with or without fever Denies: Frequent and increased urination with flank pain Inability to fully empty bladder Chief Complaints: UTI/Pyelonephritis PMH: CHF, Diabetes, Heart Disease, Hypertension Allergies: Unknown Comments: Member c/o of burning urine. MD called and told son that her WBC is elevated and to be checked for a UTI. Member denies Fever/ chills/ N/V did have loose stool today, possible dehydration. Member eating less and drinking normal. Member does wear briefs but does use the toilet. Member takes a diuretic , so cant tell if frequency has increased Verified identity by Joseph Damon MD [address] [place] [address],[address], [place], [phone], [employer] 03/21/2022 21:49:47 05/20/2022 text/html [facility] Nursing Assessment: Reason For Request: Family reports cold and called PCP. PCP recommended imaging but family does not have transportation today. PCP recommended [facility] to at least eval/assess in order to determine if ED is necessary. Patient Reports: COPD; Sputum increase ; Cough; Shortness of breath with exertion; Pain with inspiration Denies: Cough, fever greater than 2 days Lower extremity swelling History of asthma, increased use of inhaler COVID Exposure Chief Complaints: Cough, COPD, Headache, Shortness of Breath/Dyspnea, URI PMH: CHF, Diabetes, Heart Disease, Hypertension Allergies: No Known Comments: Members son calling in to place a referral, member identified via /name. Member has had cold symptoms for 3 weeks, has been using OTC DM Robitussin and tessalon pearles with no relief. Member is o2 dependent of 1L, sats 96-97. She has been is congestion, a persistent cough with lots of phlegm causing sob at times with coughing fits, has wheezing and right sided chest pain from coughing, occasional headache. Denies fever/chills, no n/v/d. Member would like to be evaluated. .................... .................... .................... .................... .................... .................... .................... . It Integration Architect Note From Hao Ingram: pt presenting with a cough x3 weeks. pt denies n/v/d/f/headache/cp/ sob. pt was prescribed benzonatate with no relief, pt had been taking robitussin dm with slight relief. lung sounds were clear in all tolliver. pt's cough has been productive with no color. flu/covid/strep test were all negative. [facility] contacted and requested a duoneb treatment then reassessment of the pt's lung sounds. after the duoneb, pt had diffuse wheezing throughout and rales in the lower left lobe. [facility] was informed of this and prescribed pt azithromyacin and prednisone. [facility] band teacher gave pt first dose 500mg of azithro and 40mg of prednisone PO. pt educated on s/s warranting a 911 call/trip to the hospital. pt informed to f/u in a few days if symptoms persist. .................... .................... .................... .................... .................... .................... .................... . Disposition: Fulfilled Cher Leyva MD [address] [facility],[address], [place], [address], [facility] [employer] [facility] 05/20/2022 21:52:03 06/02/2022 text/html This was a supervised home visit with band teacher Yan Choudhury. [facility] Nursing Assessment: Reason For Request: [facility] Family states pt has been coughing up a lot of phlegm>clearish to whitish, sometimes thick but that sometimes it comes up foamy. Pt is coughing up less but the congestion, gagging symptoms have become more apparent. Family stares no other flu symptoms other than weakness and lethargy. Chief Complaints: URI PMH: CHF, Diabetes, Heart Disease, Hypertension Allergies: No Known Comments: [facility] RN did not require any additional information to process this visit. .................... .................... .................... .................... .................... .................... .................... . It Integration Architect Note From Yan Choudhury: pt presenting with a cough 6 - 8 weeks. [facility] the [facility]. pt states her cough has improved but still feels very congested in her chest. lung sounds assessed and clear in all tolliver. pt states after the nebulizer treatment administered at the last visit she had felt better for a little bit. while talking with the son on scene, he had mentioned the pt has been complaining of painful urination and he had noticed she seemed wifty and altered yesterday. Pt was able to produce an urine sample which was positive for muang/pro/blo. [facility] contacted . [facility] prescribed a 7 day prednisone taper as well as cefpodoxime. [facility] band teacher gave pt 60mg of prednisone and 200mg of cefpodoxime on scene. 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 [facility] also sent over a prescription for nebulized albuterol for the pt to take 2 - 3 times daily as needed. pt advised to f/u with pcp in regards to urine culture send out results in case she needs to change abx. pt educated on s/s warranting a 911 call/trip to the hospital. .................... .................... .................... .................... .................... .................... .................... . Disposition: Fulfilled Marino Dick MD [address] [place] [address],[address], [place], [phone], [employer] 06/02/2022 15:25:52 08/21/2022 text/html [facility] Nursing Assessment: Reason For Request: Pt experiencing CT scan on the august 08, pneumonia but no symptoms>Non emergent and was advised to call [employer] to get checked and to make sure everything is OK. Patient Reports: Cough, fever greater than 2 days Chief Complaints: Cough PMH: CHF, Diabetes, Heart Disease, Hypertension Allergies: No Known Comments: Son calling on behalf of member with request for [facility] visit for eval ?PNA s/p had CT 08/13. RX with antibiotics. PCP request follow up . Son states member is feeling better but cont with cough. Deny fever/chills. Verify member name/- .................... .................... .................... .................... .................... .................... .................... . It Integration Architect Note From Paige Jones: Community It Integration Architect Rodriguez Jones [employer]1 dispatched to a [facility] for an 82 yof for a follow up after pneumonia tx. Upon arrival, the pt was sitting in her recliner, awake and alert, AGUILERA X4, in no apparent distress. She was Mohawk speaking only; her son/hydraulic rubbish compactor mechanic on scene translated for her. He stated that she had been treated w/ multiple courses of abx for pneumonia, and that her last dose of abx was about a month ago. He stated that he felt overall that the pt was back to her baseline, and the pt denied any complaints at that time. She was sitting comfortably in her chair (no tripodding, nasal flaring, tachypnea, or dyspnea; pt denied any recent cough), laughing and joking w/ her son. Lung sounds clear throughout, no pedal edema. Skin warm pink and dry w/ good turgor. Pt's son stated that they were unable to see the PCP or [facility] in the near future, and that the PCP wanted a follow up assessment on the pt's respiratory status. [facility] consulted and informed of assessment findings. The pt and her son were instructed to schedule and appt w/ the PCP and [facility] and ensure that they followed up w/ them; they were informed that if they had any concerns in the meantime that they should feel free to call [facility]. Red flags discussed at length. .................... .................... .................... .................... .................... .................... .................... . Disposition: Fulfilled BOB MURRIETA MD [address] [facility],[address], [place], [address], [employer] 08/21/2022 21:39:00 03/23/2023 text/html [facility] Nurse Triage Notes (Yani Engle): Reason For Request: tested positive for Covid on march 17, there is continued symptoms, unclear if retested>assessment and eval Chief Complaints: Shortness of Breath/Dyspnea PMH: CHF, Diabetes, Heart Disease, Hypertension Allergies: No Known Comments: Verified identity / address Spoke with [facility] Nurse. Member was put on molnupiravir. Member is currently having increased swallowing issues secondary to cough. Provider wanted a resp assessment. Member has been using albuterol, no history of Asthma .................... .................... .................... .................... .................... .................... .................... . It Integration Architect Note From Edgard Perez: Pt reports testing covid positive on 03/17 and started on molnupiravir. PCP requesting f/u visit. Pt currently only c/o dry cough and chest congestion. Pt taking DayQuil with no relief. Pt denies CP, SOB, GALVAN, f/n/v/d. Pt using duonebs bid. Pt is alert, NAD. VSS. Afebrile. Non focal neuro exam. Normal gait. Diffuse wheezing. Benign ABD exam. No LE edema. Pt treated with a duoneb resulting in lower right rales, otherwise clear LS. [facility] to send rx for more duonebs and mucinex DM. Pt instructed to increase duonebs to q4-6h for the next few days and to seek emergent medical care for new or worsening sx, which are reviewed with her and her son. .................... .................... .................... .................... .................... .................... .................... . Disposition: Fulfilled SAMUEL HORN MD [address] [facility],[address], [place], [address], [employer] 03/23/2023 15:36:04 OBGyn Episode No OBEpisode recorded.
--- NOTE | 2024-08-26 14:17 | CA_ITS ---
Transthoracic Echocardiogram Patient (Last, First, Middle): Ratna Singer, Gender: Female Date of : 1940 Age: 84 Procedure Date: 08/26/2024 Procedure Type: Transthoracic Echocardiogram Location: OP Height: 149.86 cm Weight: 70.31 kg BSA: 1.65 m2 Heart Rate: bpm BP: 142 / 68 mmHg Mortgage Closing Clerk: TO Referring MD: Avelina Henley DRILLING FLUIDS SPECIALIST Symptoms: I27.20 - Pulmonary hypertension, unspecified Study Quality: Fair/No IV Access Conclusions: - Normal left ventricular size and systolic function. There is mildly increased left ventricular wall thickness. The visually estimated ejection fraction is between 55-60%. - Elevated filling pressures. - Moderately increased right ventricular cavity size. There is mildly decreased right ventricular systolic function. - The left atrium is severely dilated. The right atrium is severely dilated. - The right ventricular systolic pressure is 106 mmHg. Significantly elevated right atrial pressure. Severe pulmonary hypertension is present. - There is a trivial pericardial effusion. Findings Left Ventricle Normal left ventricular size and systolic function. There is mildly increased left ventricular wall thickness. The visually estimated ejection fraction is between 55-60%. There is no evidence of regional wall motion abnormalities. Abnormal diastolic function is noted. Spectral Doppler is indicative of a pseudonormal filling pattern. Elevated filling pressures. Right Ventricle Moderately increased right ventricular cavity size. There is mildly decreased right ventricular systolic function. Atria The left atrium is severely dilated. The right atrium is severely dilated. Aortic Valve There is a normal trileaflet aortic valve. There is mild calcification of the aortic valve. There is no aortic valve stenosis. There is no aortic valve regurgitation. Mitral Valve The mitral valve appears normal. There is mild mitral valve regurgitation. There is no mitral valve stenosis. Pulmonic Valve The pulmonic valve is normal. There is no pulmonic valve regurgitation. Tricuspid Valve Normal tricuspid valve structure. There is trace tricuspid valve regurgitation. The right ventricular systolic pressure is 106 mmHg. Significantly elevated right atrial pressure. Severe pulmonary hypertension is present. Great Vessels All visible segments of the aorta are normal in size. The visualized portions of the pulmonary artery and branches are normal. Venous The inferior vena cava is dilated and does not collapse with inspiration. Pericardium/Pleural There is a trivial pericardial effusion. Prior Study Comparison No prior study available for comparison. Measurements 2D Linear Measurements IVSd: 1.03 0.6-0.9/0.6-1.0 cm LVIDd: 4.33 3.9-5.3/4.2-5.9 cm LVIDd Index: 2.62 2.4-3.2/2.2-3.1 cm/m2 LVIDs: 3.02 2.0-3.6 cm LVPWd: 0.98 0.7-1.1 cm LA Diam: 3.90 2.7-3.8/3.0-4.0 cm LAIDs Index: 2.36 1.5-2.3 cm/m2 LV Mass: 180.73 67-162/88-224 g LV Mass Index: 109.53 43-95/49-115 g/m2 LVOT Diam: 1.90 3.0+(-)1.3 cm Mitral Valve MV Pk E: 0.67 MV PK A: 0.37 MV Decel Time: 125.00 E/A: 1.80 E'Lateral: 5.33 E'Medial: 3.70 E/E' Med: 18.20 E/E' Lat: 12.60 PHT: 37.00 MVA PHT: 5.95 Decel [place]: 5.37 Aortic Valve AoV Pk José Miguel: 1.45 AoV Mn José Miguel: 0.99 AoV VTI: 0.33 AoV Pk Grad: 8.00 Aov Mn Grad: 4.00 TRISTEN Cont.VTI: 1.75 LVOT LVOT Pk José Miguel: 0.85 LVOT Mn José Miguel: 0.59 LVOT VTI: 0.20 LVOT Pk Grad: 3.00 LVOT Mn Grad: 2.00 LVOT Diam: 1.90 LVOT Area: 2.84 Diastolic Function MV Pk E: 0.67 MV Pk A: 0.37 E/A: 1.80 E'Medial: 3.70 E/E' Med: 18.20 E' Laterial: 5.33 E/E' Lat: 12.60 Right Ventricle TAPSE (mm): 14.60 TVS' José Miguel: 9.36 Tricuspid Valve TR Pk José Miguel: 4.77 TR Pk Grad: 91.00 RA Press: 15.00 RVSP: 106.00 Great Vessels Aorta Sinus of Valsalva: 3.01 2.0-3.5 cm Ao Asc: 3.40 2.1-3.4 cm Updated in Other Vendor System with Status of Final Anthony Ocasio MD electronically signed on 08/28/2024 11:16:12 PM with status of Final
== END ==
LOC: HO.CARD 14:10
PROVIDERS: PCP Nurse Practitioner Primary Care; Visit Provider Nurse Practitioner Family
DX: I27.20 Pulmonary hypertension, unspecified (principal)
CPT/HCPCS: 93306

== ENCOUNTER → 2024-08-26 14:17 | Outpatient (BNV) | payer OTHER, SELFPAY | PROVIDERS: PCP Nurse Practitioner Primary Care; Visit Provider Internal Medicine Cardiovascular Disease | DX: I27.20 Pulmonary hypertension, unspecified (principal); I34.0 Nonrheumatic mitral (valve) insufficiency; I31.39 Other pericardial effusion (noninflammatory); I51.7 Cardiomegaly | CPT/HCPCS: 93306 ==

== ENCOUNTER 2024-09-02 16:12 | Outpatient (REF) | payer OTHER, SELFPAY ==
--- NOTE | ~2024-09-02 | CT_ITS ---
EXAMINATION: CT CHEST WITHOUT CONTRAST CLINICAL INFORMATION: R91.8 - Other nonspecific abnormal finding of lung field COMPARISON: None available. TECHNIQUE: Multidetector volumetric CT imaging of the chest was done. Axial MIP volume rendering provided. Sagittal and coronal reformatted images were obtained. This CT examination was performed using dose optimization techniques as appropriate, variously including the following: *Automated exposure control *Adjustment of mA and/or kV according to patient size (this includes techniques or standardized protocols for targeted exams where dose is matched to indication/reason for exam; i.e. extremities or head) *Use of iterative reconstruction technique FINDINGS: LUNGS: There are patchy diffuse groundglass opacities in the right greater than left lung. There is mild bronchiectasis in the right apex and posterior medial base of the right lower lobe, likely traction related. MEDIASTINUM: The mediastinum is normal. CORONARY ARTERY CALCIFICATION: Dense multivessel extensive coronary artery calcifications present PLEURA: There is no pleural effusion. No pleural mass or thickening. AXILLA: No lymphadenopathy. UPPER ABDOMEN: Unremarkable. OSSEOUS STRUCTURES: Multilevel degenerative changes are present in the spine. There are mediastinal wires. CT/CT chest wo IV con IMPRESSION: Multilobar pulmonary disease most groundglass in the right apex could be related to atypical pneumonia, drug reaction, and/or chronic interstitial lung disease such as fibrotic hypersensitivity pneumonitis Fleischner guidelines were followed. Electronically signed by: Killian Acharya MD 09/02/2024 05:53 PM EDT
--- OUTSIDE RECORDS SUMMARY | 2024-09-02 16:14 | XMS_ITS | Data Portability ---
Author Organization [place] [facility], [facility] Address [address] [place] [phone] Care Team Providers Care Muck Farmer Name Role Phone [facility] Referring Provider Assessment Encounter Date Assessment Date Assessment LastModified by Organization Details LastModified Time 06/02/2022 06/02/2022 I have reviewed and agree with the assessment and plan as documented by the job printer. I provided real time medical direction for this encounter and was immediately available to provide additional phone based assistance as needed. History as noted by job printer. Pt with history of CHF, COPD, HTN, [...] make a follow up appointment with her oncology research rn for repeat evaluation and management of her cough. 2. UTI. Pt with about 2 weeks of dysuria and history of UTI in the past. Son though pt seemed mildly confused yesterday, but today she appears well. Urine dip is c/w UTI today. Urine culture obtained and will be sent to [facility] lab. Pt medicated with cefpodoxime 200mg [...] recommend further routine follow up with PCP. [email or web address] Not available 08/21/2022 21:38:29 03/23/2023 03/23/2023 As noted, we alexandrea abrams called to see this patient regarding concerns of covid. Evaluation in the field was performed by my job printer colleague, as noted above, I provided real-time [...] None recorded. Lab culture, urine 2022 023 [place] [facility] (Centralized Electronic Ordering - All Locations), Patient Can Go To The Location Of Their Choice, [id number] 3 10:37:48 urinalysis, dipstick [address], [id number] 3 15:02:07 Referral None recorded. Procedures None recorded. Surgeries None recorded. Imaging None recorded. Medication Orders ipratropium 0.5 mg-albutero l 3 mg (2.5 mg base)/3 mL nebulizatio n soln 2023 024 [place], [place] - [id number], [address] [place], [address], 4 15:52:52 Mucinex 600 mg tablet, extended release 2023 024 [place] [id number], [address] [place], [address], 4 12:15:44 cefpodoxime 200 mg tablet 2022 023 [place] - [id number], [address], [place], [address], 3 15:02:07 cefpodoxime 200 mg tablet 2022 023 [facility], [place] - [id number], [address], [place], [address], 3 15:11:28 prednisone 20 mg tablet 2022 023 [facility] [id number], [address], [place], [address], 3 15:02:07 prednisone 20 mg tablet 2022 023 [facility], [facility] [id number], [address], [place], [address], 3 15:11:28 albuterol sulfate 2.5 mg/3 mL (0.083 %) solution for nebulizatio n 2022 023 [facility], [place] - [id number], [address], [place], [address], 3 15:11:29 azithromyci n 250 mg tablet 2022 023 [facility] [id number], [address], [place], [address], 3 16:31:42 prednisone 20 mg tablet 2022 023 [facility] [id number], [address], [place], [address], 3 16:31:41 Patient TargetsNo targets recorded. Patient InstructionsNo instructions recorded. Reason for Referral None Reported. Results Created Date Observation Date Name Description Value Unit Range Abnormal Flag Note LastModifiedBy Organization Detail LastModifiedTime 03/11/1903/11/2022 rapid SARS CoV 2 Ag, QL IA, respi rator y speci men rapid SARS CoV 2 Ag, QL IA, respiratory specimen negati ve Not Available [facility] [address] [place] [address], [phone] 03/11/2022 13:37:09 03/11/19 23 03/11/2022 rapid flu (A+B) Flu negati ve Not Available [facility] [address] [place] [address], [phone] 03/11/2022 13:37:07 06/03/19 23 06/02/2022 URINE CULTU [...] dipst ick Leukocytes positi ve Not Available [facility] ed [address] [place] [address], [address] [place] [address] 06/02/2022 14:42:58 06/03/19 23 06/02/2022 urina lysis , dipst ick Nitrite negati ve Not Available [facility] ed [address] [place] [address], [address] [place] [address] 06/02/2022 14:42:58 06/03/19 23 06/02/2022 urina lysis , dipst ick Protein positi ve Not Available [facility] ed [address] [place] [address], [address] [place] [address] 06/02/2022 14:42:58 06/03/19 23 06/02/2022 urina lysis , dipst ick Blood positi ve Not Available [facility] ed [address] [place] [address], [address] [place] [address] 06/02/2022 14:42:58 Result Notes None recorded. Medical [...] Available No t Available Comfort EZ Pen Bondurant 31 gauge x 3/16 USE TO INJECT insulin DAILY DIRECTED active Not Available Not Available No t Available Xarelto 15 mg tablet TAKE 1 TABLET BY MOUTH EVERY EVENING active Not Available Not Available No t Available [facility] spacer USE WITH symbicort AND albuterol DIRECTED active Not Available Not Available Not Available Dexcom G7 Email Marketing Intern USE TO CHECK BLOOD SUGAR 4 (FOUR) [...] L/min 92 /min 148/55 mm[Hg] Not Available [facility] - production 3 21:47:07 Date Recorded Heart [...] 97 % 2 L/min 149. 86 cm 78715.7 2 g 149/88 mm[Hg] Not Available [facility] - production 4 15:05:58 Date Recorded Respiratory rate Body weight Oxygen saturation Oxygen saturation in Arterial blood by Pulse oximetry Heart rate Body temperature Body temperature Oxygen saturation Oxygen saturation in Arterial blood by Pulse oximetry Body weight Respiratory rate Heart rate Provider Name and Address Organization Details Last Updated DateTime 3 18 /min 67643.1 28 g 97 % 97 % 77 /min 97.6 [degF] 97.6 [degF] 97 % 97 % 12721.1 28 g 18 /min 77 /min Not Available [facility] - production 3 16:49:03 Date Recorded Systolic And Diastolic Systolic And Diastolic Provider Name and Address Organization Details Last Updated DateTime 05/20/2022 143/70 mm[Hg] 143/70 mm[Hg] Not Available [facility] - production 05/20/2022 16:49:03 Date Recorded Body temperature Oxygen saturation Oxygen saturation in Arterial blood by Pulse oximetry Inhaled oxygen flow rate Respiratory rate Body weight Heart rate Body temperature Heart rate Body weight Respiratory rate Oxygen saturation Provider Name and Address Organization Details Last Updated DateTime 3 96.8 [degF] 99 % 99 % 1 L/min 18 /min 98133.3 52 g 78 /min 96.8 [degF] 78 /min 57805.3 52 g 18 /min 99 % Not Available [facility] - production 3 15:10:43 Date Recorded Oxygen saturation in Arterial blood by Pulse oximetry Inhaled oxygen flow rate Systolic And Diastolic Systolic And Diastolic Provider Name and Address Organization Details Last Updated DateTime 06/02/2022 99 % 1 L/min 145/59 mm[Hg] 145/59 mm[Hg] Not Available [facility] - production 3 15:10:43 Date Recorded Oxygen saturation Oxygen saturation in Arterial blood by Pulse oximetry Inhaled oxygen flow rate Respiratory rate Heart rate Body temperature Systolic And Diastolic Provider Name and Address Organization Details Last Updated DateTime 3 99 % 99 % 1 L/min 18 /min 73 /min 98.7 [degF] 156/79 mm[Hg] Not Available [facility] - production 3 18:02:22 Social History None [...] 119 Benjamin Strauss MD Main - [facility] [address] [place] [phone] 04/05/2021 18:15:56 09/03/2021 12:06:43 5430 Katharina Hoyt MD Main - [facility] [address] [place] [phone] 01/03/2022 13:59:39 01/06/2022 13:00:38 Acute exacerbation of chronic obstructive pulmonary disease 813079129 J44.1 w/ hypoxia/ respirator y distress/f ailure - sat improved to 90 on duoneb- now wheezing audible- able to get EKG which showed possible ischemia - 911 ALS arrived before medic could give solumedrol or check BS- report called to provider at [facility] 7270 Marino Dick MD Main - [facility] [address] [place] [phone] 03/11/2022 13:34:38 03/13/2022 10:30:35 Viral upper respiratory tract infection [id number] J06.9 7523 Joseph Damon MD Main - [facility] [address] [place], [place] [phone] 03/21/2022 21:46:59 03/24/2022 12:27:32 History of urinary tract infection 2529958099 107 Z87.440 This 81-year-ol d female has a history of UTIs and her PCP wanted her to be checked for a UTI today. She has no symptoms and her U/A was normal. I see no evidence of a UTI, so I did not recommend any specific treatment. The patient agreed with this plan. 9121 Cher Leyva MD Main - [facility] [address] [place] [address] 0 05/20/2022 16:07:03 05/22/2022 10:26:44 Cough 19265476 R05.9 cough x3 weeks, exam notable for diffuse wheezing with a question of R basilar rales. COVID, flu negative. VSS. Suspect COPD exacerbati on +/- atypical pna. Will trial 5d pred and azithromyc in. Educated on warning signs/sx. 9507 Marino Dick MD Main - [facility] [address] [place] [address] 0 06/02/2022 14:32:26 06/03/2022 11:46:46 Chronic cough 09931984 R05.3 Urinary symptoms 0518250 08 R39.9 58261 BOB MURRIETA MD [facility] - [facility] [address] [place], [place] [phone] 08/21/2022 18:02:20 08/21/2022 23:29:35 Post-discharge follow-up [id number] Z09 [id number] SAMUEL HORN MD Main - [facility] [address] [place], [place] [phone] 03/23/2023 15:05:46 03/24/2023 10:19:16 Chronic obstructive pulmonary disease [id number] J44.9 Health Concerns Section Related Observation LastModified by Organization Detai ls LastModified Time None Recorded Concern Status LastModified by Organization Details LastModified Time None Recorded Advance Directives Directive None Recorded Payers Insurance Date Sequence Insurance Name Policy Number Policy Casey Covered Member ID Casey Member ID Guarantor Name 08/21/2022 1 [facility] - DOS PRIOR TO 2022 - DUAL ELIGIBLE (MEDICARE REPLACEMENT/ADV ANTAGE - HMO) Ratna Sarah [id number] Ratna Sarah 04/28/2023 1 [facility] - DOS ON OR AFTER 2022 - DUAL ELIGIBLE - SHELTER OPTIONS AND ONE CARE (MEDICARE REPLACEMENT/ADV ANTAGE - HMO) Ratna Sarah [id number] Ratna Sarah Notes Date Note Type Note [...] increased Verified identity by Joseph Damon MD [address] [place] [address],[address], [place], [address], [employer] 03/21/2022 21:49:47 05/20/2022 text/html CRC Nursing Assessment: [...] .................... .................... .................... .................... .................... .................... . Corporate Director Talent Assessment Note From Hao Ingram: pt presenting with a cough x3 weeks. pt denies n/v/d/f/headache/cp/ sob. pt was prescribed benzonatate with no relief, pt had been taking robitussin dm with slight relief. lung sounds were clear in all tolliver. pt's cough has been productive with no color. flu/covid/strep test were all negative. [facility] [place] and requested a duoneb treatment then reassessment of the pt's lung sounds. after the duoneb, pt had diffuse wheezing throughout and rales in the lower left lobe. [facility] was informed of this and prescribed pt azithromyacin and prednisone. [facility] job printer gave pt first dose 500mg of azithro and 40mg of prednisone PO. pt educated on s/s warranting a 911 call/trip to the hospital. pt informed to f/u in a few days if symptoms persist. .................... .................... .................... .................... .................... .................... .................... . Disposition: Fulfilled Cher Leyva MD [address] [facility],[address], [place], [address], [facility] - new test company [facility] 05/20/2022 21:52:03 06/02/2022 text/html This was a supervised home visit with job printer Yan Choudhury. [facility] Nursing Assessment: Reason For Request: [facility] Family [...] .................... .................... .................... .................... .................... .................... . Corporate Director Talent Assessment Note From Yan Choudhury: pt presenting with a cough 6 - 8 weeks. [facility] [...] an urine sample which was positive for umang/pro/blo. [facility] [place] . [facility] prescribed a 7 day prednisone taper as well as cefpodoxime. [facility] job printer gave pt 60mg of prednisone and 200mg of cefpodoxime on scene. pt educated on the importance of f/u with her oncology research rn and getting a chest x - ray due to the longevity of symptoms with little to no relief. [facility] also sent over a prescription for nebulized [...] .................... . Disposition: Fulfilled Marino Dick MD [address] [place] [address],[address], [place], [phone], [employer] 06/02/2022 15:25:52 08/21/2022 text/html [facility] Nursing Assessment: Reason For Request: Pt experiencing CT scan on the august 08, pneumonia but no symptoms>Non emergent and was advised to call [facility] [employer] to get checked and to make sure everything is OK. Patient Reports: Cough, fever greater than 2 days Chief Complaints: Cough PMH: CHF, Diabetes, Heart Disease, Hypertension Allergies: No Known Comments: Son calling on behalf of member with request for [facility] visit for eval ?PNA s/p had CT 08/13. RX with antibiotics. PCP request follow up . Son states member is feeling better but cont with cough. Deny fever/chills. Verify member name/- .................... .................... .................... .................... .................... .................... .................... . Corporate Director Talent Assessment Note From Paige Jones: Community Corporate Director Talent Assessment Rodriguez Jones CCA1 dispatched to a [facility] for an 82 yof for a follow up after pneumonia tx. Upon arrival, the pt was sitting in her recliner, awake and alert, AGUILERA X4, in no apparent distress. She was Yakut speaking only; her son/diplomatic courier on scene translated for her. He stated [...] were unable to see the PCP or Email Marketing Intern in the near future, and that the PCP wanted a follow up assessment on the pt's respiratory status. [facility] consulted and informed of assessment findings. The pt and her son were instructed to schedule and appt w/ the PCP and Email Marketing Intern and ensure that they followed up w/ them; they were informed that if they had any concerns in the meantime that they should feel free to call [facility]. Red flags discussed at length. .................... .................... .................... .................... .................... .................... .................... . Disposition: Fulfilled BOB MURRIETA MD [address] [facility],[address], [place], [address], [employer] 08/21/2022 21:39:00 03/23/2023 text/html CRC Nurse Triage [...] .................... .................... .................... .................... .................... .................... . Corporate Director Talent Assessment Note From Edgard Perez: Pt reports testing [...] in lower right rales, otherwise clear LS. [facility] to send rx for more duonebs and mucinex DM. Pt instructed to increase duonebs to q4-6h for the next few days and to seek emergent medical care for new or worsening sx, which are reviewed with her and her son. .................... .................... .................... .................... .................... .................... .................... . Disposition: Fulfilled SAMUEL HORN MD [address] [facility],[address], [place], [address], [employer] 03/23/2023 15:36:04 OBGyn Episode No OBEpisode recorded.
--- OUTSIDE RECORDS SUMMARY | 2024-09-02 16:14 | XMS_ITS | Clinical Summary ---
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 - Continue Aspirin 81 mg [...] (07/05/2020 3:42 PM EDT): Patient presented to [facility] on 07/02 with right lower extremity [...] have buckled subsequently. She was evaluated at [place] and labs were grossly unremarkable but MRI [...] the L3-L4 level. Patient was transferred to [facility] - Continues to endorse [...] 100 mg BID - Due to elevated [id number] score, anticoagulate with rivaroxaban - [id number] Stroke Risk (5-year stroke rate based on [...] complete this topic Procedures * Due to [employer] law, this organization might not be sharing negative HIV tests. Procedure Name Priority Date/Time Associated Diagnosis Comments COMPREHENSIVE METABOLIC PANEL Timed 07/06/2020 5:21 AM EDT HEMOGLOBIN A1C Routine 07/04/2020 6:47 AM EDT from Last 3 Months or Most Recently Relevant to Health Maintenance Results * Due to [facility] law, this organization might not be sharing negative HIV tests. * (ABNORMAL) Comprehensive Metabolic Panel (07/06/2020 5:21 AM EDT) NA 140 135 - 145 mmol/L 07/06/2020 6:02 AM EDT [facility] K 4.0 3.5 - 5.3 mmol/L 07/06/2020 6:02 AM EDT [facility] Cl 104 97 - 110 mmol/L 07/06/2020 6:02 AM EDT [facility] CO2 33(H) 24 - 32 mmol/L 07/06/2020 6:02 AM EDT [facility] Anion Gap 3(L) 5 - 15 07/06/2020 6:02 AM EDT [facility] Glucose 87 70 - 99 mg/dL 07/06/2020 6:02 AM EDT [facility] Creatinine 1.01 0.50 - 1.20 mg/dL 07/06/2020 6:02 AM EDT [facility] eGFR Non- 54(L) >=90 mL/min/BS A 07/06/2020 6:02 AM T [facility] eGFR 62(L) >=90 mL/min/BS A 07/06/2020 6:02 AM T [facility] Comment: Units = mL/min/1.73 m2 Glomerular Filtration Rate (GFR) is estimated based on the CKD-EPI Creatinine Equation (2009). Stage Description GFR 1 Normal >=90 mL/min/BSA 2 Mildly decreased GFR 60-89 mL/min/BSA 3 Moderately decreased GFR 30-59 mL/min/BSA 4 Severely decreased GFR 15-29 mL/min/BSA 5 Kidney Failure <15 mL/min/BSA Calcium 8.9 8.7 - 10.7 mg/dL 07/06/2020 6:02 AM T [facility] Total Protein 6.2 6.0 - 8.0 g/dL 07/06/2020 6:02 AM [facility] Albumin 3.5 3.5 - 4.8 g/dL 07/06/2020 6:02 AM [facility] Bilirubin, Total 0.6 0.3 - 1.2 mg/dL 07/06/2020 6:02 AM [facility] Alkaline Phosphatase 88 30 - 115 U/L 07/06/2020 6:02 AM T [facility] AST 14 10 - 40 U/L 07/06/2020 6:02 AM [facility] ALT 9(L) 10 - 40 U/L 07/06/2020 6:02 AM [facility] BUN 24(H) 7 - 23 mg/dL 07/06/2020 6:02 AM [facility] Blood Structure of peripheral vein / Unknown Venipuncture / Unknown 07/06/2020 5:21 AM EDT 07/06/2020 5:28 AM EDT Mell Damon MD LAB BLOOD ORDERABLES Final Resul t Performing Organization Address [facility] Co de Phone Number [facility] [address] [place] [address], * (ABNORMAL) Hemoglobin A1c (07/04/2020 6:47 AM EDT) Hemoglobin A1C 7.0(H) <5.7 % of total Hgb 07/04/2020 1:43 PM EDT [employer] Comment: For someone without known diabetes, a [...] (MG/DL) 154 (calc) 07/04/2020 1:43 PM EDT [employer] eAG (MMOL/L) 8.5 (calc) 07/04/2020 1:43 PM EDT [employer] Blood Structure of peripheral vein / Unknown Venipuncture / Unknown 07/04/2020 6:47 AM EDT 07/04/2020 7:05 AM EDT [facility] - 07/04/2020 1:43 PM EDT [facility] Received Date: Mell Damon MD LAB BLOOD ORDERABLES Final Resul t Performing Organization Address [facility] Co de Phone Number [facility] [address], [place] [address], [place] [phone] [employer] [facility] [address], [place] [address], [place] [phone] from Last 3 Months or Most Recently Relevant to Health Maintenance Insurance [facility] JOSE VALENZUELA [id number] Advance Directives * DNR/DNI (Latest Code Status on File) Date Activated Date Inactivated Comments 07/03/2020 6:45 PM 07/06/2020 3:22 PM * Presumed Full Code Date Activated Date Inactivated Comments 07/03/2020 3:06 PM 07/03/2020 6:45 PM Care Teams Aoc Director Intelligence Officer Relationship Specialty Start Date End Date Geno Shields [address] [place] [address] PCP - General 07/03/20
== END 2024-09-02 16:13 | disposition home or self-care (01) ==
LOC: HO.CT 16:12
PROVIDERS: PCP Nurse Practitioner Primary Care; Visit Provider Nurse Practitioner Family
DX: R91.8 Other nonspecific abnormal finding of lung field (principal); J69.0 Pneumonitis due to inhalation of food and vomit
CPT/HCPCS: 71250

== ENCOUNTER → 2024-09-02 16:14 | Outpatient (BNV) | payer OTHER, SELFPAY | PROVIDERS: PCP Nurse Practitioner Primary Care; Visit Provider Radiology Diagnostic Radiology | DX: J84.9 Interstitial pulmonary disease, unspecified (principal) | CPT/HCPCS: 71250 ==

== ENCOUNTER 2024-09-23 12:47 | Outpatient (AMB) | payer OTHER, SELFPAY ==
--- OUTSIDE RECORDS SUMMARY | 2024-09-23 12:49 | XMS_ITS | Clinical Summary ---
Author Organization [facility] Address [address] [place] [address] Care Team Providers Care Subway Operator Name Role Phone Geno Shields Primary Care Provider [phone] Allergies No known active allergies Medications albuterol [...] of CABG > 10 years ago in [place]. Patient does not follow with a roll sheeting cutter at present. - Continue Aspirin 81 mg [...] (07/05/2020 3:42 PM EDT): Patient presented to [facility] on 07/02 with right lower extremity [...] have buckled subsequently. She was evaluated at [facility] and labs were grossly unremarkable but MRI [...] the L3-L4 level. Patient was transferred to [facility] for Neurosurgery consult - Continues [...] 100 mg BID - Due to elevated [id number] score, anticoagulate with rivaroxaban - [id number] Stroke Risk (5-year stroke rate based on [...] complete this topic Procedures * Due to [place] [employer] law, this organization might not be sharing negative HIV tests. Procedure Name Priority Date/Time Associated Diagnosis Comments COMPREHENSIVE METABOLIC PANEL Timed 07/06/2020 5:21 AM EDT HEMOGLOBIN A1C Routine 07/04/2020 6:47 AM EDT from Last 3 Months or Most Recently Relevant to Health Maintenance Results * Due to [facility] law, this organization might not be sharing negative HIV tests. * (ABNORMAL) Comprehensive Metabolic Panel (07/06/2020 5:21 AM EDT) NA 140 135 - 145 mmol/L 07/06/2020 6:02 AM EDT [facility] K 4.0 3.5 - 5.3 mmol/L 07/06/2020 6:02 AM EDT [facility] Cl 104 97 - 110 mmol/L 07/06/2020 6:02 AM EDT [facility] CO2 33(H) 24 - 32 mmol/L 07/06/2020 6:02 AM EDT [facility] Anion Gap 3(L) 5 - 15 07/06/2020 6:02 AM EDT [facility] Glucose 87 70 - 99 mg/dL 07/06/2020 6:02 AM EDT [facility] Creatinine 1.01 0.50 - 1.20 mg/dL 07/06/2020 6:02 AM EDT [facility] eGFR Non- 54(L) >=90 mL/min/BS A 07/06/2020 6:02 AM T [facility] eGFR 62(L) >=90 mL/min/BS A 07/06/2020 6:02 AM T [facility] Comment: Units = mL/min/1.73 m2 Glomerular Filtration Rate (GFR) is estimated based on the CKD-EPI Creatinine Equation (2009). Stage Description GFR 1 Normal >=90 mL/min/BSA 2 Mildly decreased GFR 60-89 mL/min/BSA 3 Moderately decreased GFR 30-59 mL/min/BSA 4 Severely decreased GFR 15-29 mL/min/BSA 5 Kidney Failure <15 mL/min/BSA Calcium 8.9 8.7 - 10.7 mg/dL 07/06/2020 6:02 AM T [facility] Total Protein 6.2 6.0 - 8.0 g/dL 07/06/2020 6:02 AM [facility] Albumin 3.5 3.5 - 4.8 g/dL 07/06/2020 6:02 AM [facility] Bilirubin, Total 0.6 0.3 - 1.2 mg/dL 07/06/2020 6:02 AM [facility] Alkaline Phosphatase 88 30 - 115 U/L 07/06/2020 6:02 AM T [facility] AST 14 10 - 40 U/L 07/06/2020 6:02 AM [facility] ALT 9(L) 10 - 40 U/L 07/06/2020 6:02 AM [facility] BUN 24(H) 7 - 23 mg/dL 07/06/2020 6:02 AM [facility] Blood Structure of peripheral vein / Unknown Venipuncture / Unknown 07/06/2020 5:21 AM EDT 07/06/2020 5:28 AM EDT Mell Damon MD LAB BLOOD ORDERABLES Final Resul t Performing Organization Address [facility] Co de Phone Number [facility] [address] [place] [address], * (ABNORMAL) Hemoglobin A1c (07/04/2020 6:47 AM EDT) Hemoglobin A1C 7.0(H) <5.7 % of total Hgb 07/04/2020 1:43 PM EDT [facility] Comment: For someone without known diabetes, a [...] (MG/DL) 154 (calc) 07/04/2020 1:43 PM EDT [facility] eAG (MMOL/L) 8.5 (calc) 07/04/2020 1:43 PM EDT [facility] Blood Structure of peripheral vein / Unknown Venipuncture / Unknown 07/04/2020 6:47 AM EDT 07/04/2020 7:05 AM EDT [facility] - 07/04/2020 1:43 PM EDT [facility] Received Date: Mell Damon MD LAB BLOOD ORDERABLES Final Resul t Performing Organization Address [facility] Co de Phone Number [facility] [address], [place] [address], [place] [phone] [facility] [address], [place] [address], [place] [phone] from Last 3 Months or Most Recently Relevant to Health Maintenance Insurance [facility] [employer] JOSE VALENZUELA [id number] Advance Directives * DNR/DNI (Latest Code Status on File) Date Activated Date Inactivated Comments 07/03/2020 6:45 PM 07/06/2020 3:22 PM * Presumed Full Code Date Activated Date Inactivated Comments 07/03/2020 3:06 PM 07/03/2020 6:45 PM Care Teams Subway Operator Relationship Specialty Start Date End Date Geno Shields [address] [place] [address] PCP - General 07/03/20
--- NOTE | 2024-09-23 12:56 | MHC.OFFVIS ---
Vital Signs 09/23/24 12:57 Height 4 ft 11 in Weight 146 lb 6 oz BMI 29.6 BP 130/68 Blood Pressure Location Rt brachial Position Sitting Pulse 50 Pulse Source Pulse Oximeter Pulse Oximetry (%) 99 Oxygen Delivery Method Nasal Cannula Oxygen Flow Rate 2 Intake Visit Reasons: Interstitial lung disease Allergies No Known Allergies (No Known Allergies*) Allergy (Unverified 09/23/24 13:01) HPI HPI Interstitial lung disease: Details: Ratna is a pleasant 83-year-old female, never smoker, with underlying history of interstitial lung disease, chronic respiratory failure O2 dependent, CHF, hypertension, hyperlipidemia, CABG x3, atrial fibrillation on Xarelto, diabetes, GERD, chronic kidney disease, and left vocal cord paralysis with history of Botox injections through ENT. She was initially referred by PCP for pulmonary evaluation due to known history of interstitial lung disease. She was previously under the care of [facility] however required transfer to this office. Per referral patient has had 9 admissions in 2021 related to acute on chronic respiratory failure, with known history of silent aspiration. Reviewed pulmonary records which stated likely aspiration related pneumonitis. She had a modified barium swallow test in November 2023 which revealed silent aspiration. She does admit to not consistently using thickener with liquids which results in mucousy cough otherwise denies cough. She continues to report intermittent wheezing and moderate dyspnea with any exertion. She currently uses nebulized albuterol/DuoNeb however infrequently. She has been using 1-2L with exertion and 1L with rest. She is under the care of cardiology through [facility], last echo 2020 revealed moderate pulmonary hypertension RSVP 50-55. She reports orthopnea and trace BLE edema using 20 mg lasix BID and instructed to double if notable BLE edema are present. Today she presents to review chest CT. She recently had echo through [facility] which revealed severe pulmonary HTN and notified to call cardiology which she was recently evaluated by however did not note recent echo in office note questioning if they received this information as she would benefit from right heart cath for further evaluation. PFSH Medical History Diabetes Heart attack Kidney disease Surgical History H/O: hysterectomy Social History Patient Tobacco Use Status: Never used Tobacco Review of Systems Const Denies chills, Denies excessive sweating, Denies fever(s), Denies headache(s) and Denies night sweats Eyes Denies dry eyes, Denies irritation and Denies itchy eyes ENT Reports Normal hearing present, Denies headache(s), Denies nasal congestion, Denies nasal discharge, Denies post nasal drip and Denies sore throat Card Denies chest pain, Denies chest pain at rest, Denies chest pain with activity, Denies claudication, Reports dyspnea on exertion and Denies paroxysmal nocturnal dyspnea Resp Denies change in phlegm color, Denies chest congestion, Reports cough, Denies excessive phlegm production, Denies pain on inspiration, Denies pain with cough, Reports dyspnea on exertion, Denies stridor and Reports wheezing Musc Denies myalgias Neuro Reports Normal hearing present and Denies headache(s) Endo Denies excessive sweating Gaudencio/Lymph Denies lymphadenopathy Aller/Immun Denies itchy eyes, Denies seasonal rhinorrhea and Reports wheezing Physical Exam Vital Signs: Last Vital Signs Pulse 50 09/23/24 12:57 BP 130/68 09/23/24 12:57 Pulse Ox 99 09/23/24 12:57 Oxygen Delivery Method Nasal Cannula 09/23/24 12:57 Oxygen Flow Rate 2 09/23/24 12:57 BMI result Body Mass Index 29.6 Const General: cooperative, comfortable, no acute distress, well developed, alert and tired appearing Nutritional Appearance: obese Orientation/consciousness: patient oriented x3 Limitations: no limitations HEENT Head: Yes normal to inspection, Yes normocephalic and Yes atraumatic Ears: hearing grossly normal bilaterally and external ears normal Eyes General: appearance normal, both eyes and all related structures Eyelids: Yes eyelids normal Sclerae: sclerae normal EOM: EOMs intact bilaterally Neck Neck: Yes normal visual inspection and Yes no lymphadenopathy Lymphatic: no lymphadenopathy noted Chest Chest palpation & inspection: normal inspection of the chest Resp Other: scattered rhonchi Effort & Inspection: normal respiratory effort, able to speak in complete sentences, no audible wheezes, no cough, no stridor, not tachypneic, no tripod positioning and no use of accessory muscles Auscultation: diminished lung sounds Cardio Jugular venous distension: no JVD Rate: regular rate Rhythm: regular rhythm Skin Other: warm, dry General skin exam: no rashes or lesions noted Neuro General: patient oriented x3 Cranial nerves: Yes Normal hearing present Cognition (Neuro): normal cognition Gait exam (Neuro): Normal gait present Extrem Other: trace pedal edema General: Yes normal to inspection Psych Appearance: grossly normal and well kempt Speech and movement: Normal speech and movement present and Clear speech present Affect: normal affect Attitude: cooperative Thought process: Normal thought process present Thought content: Normal thought content present Insight: Good insight present (Psych) Judgement: Good judgement present (Psych) Results Reviewed Results Reviewed: [address] [address] [address] Scan Report Signed Patient: Ratna Singer MR#: [id number] : 1940 Acct:[id number] Age/Sex: 84 / F ADM Date: 09/02/24 Loc: HO.CT Attending Dr: Avelina Henley NP Ordering Physician: Avelina Henley NP Date of Service: 09/02/24 Procedure(s): CT chest wo IV con Accession Number(s): [id number] cc: [employer]; Avelina Henley NP~ Report Number: [id number]: Total DLP = 184.00 mGy-cm EXAMINATION: CT CHEST WITHOUT CONTRAST CLINICAL INFORMATION: R91.8 - Other nonspecific abnormal finding of lung field COMPARISON: None available. TECHNIQUE: Multidetector volumetric CT imaging of the chest was done. Axial MIP volume rendering provided. Sagittal and coronal reformatted images were obtained. This CT examination was performed using dose optimization techniques as appropriate, variously including the following: *Automated exposure control *Adjustment of mA and/or kV according to patient size (this includes techniques or standardized protocols for targeted exams where dose is matched to indication/reason for exam; i.e. extremities or head) *Use of iterative reconstruction technique FINDINGS: LUNGS: There are patchy diffuse groundglass opacities in the right greater than left lung. There is mild bronchiectasis in the right apex and posterior medial base of the right lower lobe, likely traction related. MEDIASTINUM: The mediastinum is normal. CORONARY ARTERY CALCIFICATION: Dense multivessel extensive coronary artery calcifications present PLEURA: There is no pleural effusion. No pleural mass or thickening. AXILLA: No lymphadenopathy. UPPER ABDOMEN: Unremarkable. OSSEOUS STRUCTURES: Multilevel degenerative changes are present in the spine. There are mediastinal wires. CT/CT chest wo IV con IMPRESSION: Multilobar pulmonary disease most groundglass in the right apex could be related to atypical pneumonia, drug reaction, and/or chronic interstitial lung disease such as fibrotic hypersensitivity pneumonitis Fleischner guidelines were followed. Electronically signed by: Killian Acharya MD 09/02/2024 05:53 PM EDT RP Dictated By: Killian Acharya MD Signed By: <Electronically signed by Killian Acharya MD in OV> 09/02/24 1753 DD/ 1639 TD/TT: 09/02/24 1659 Category Development Analyst: Assessment & Plan Assessment & Plan (1) Chronic respiratory failure with hypoxia: Code(s): J96.11 - Chronic respiratory failure with hypoxia Category: Medical (2) Pulmonary hypertension: Code(s): I27.20 - Pulmonary hypertension, unspecified Category: Medical (3) Aspiration pneumonitis: Code(s): J69.0 - Pneumonitis due to inhalation of food and vomit Category: Medical (4) Interstitial lung disease: Code(s): J84.9 - Interstitial pulmonary disease, unspecified Category: Medical Plan Reviewed echo which revealed severe pulmonary HTN and encouraged patient to reach out to cardiology to further evaluate. Will resend echo to personalization specialist as it does not appear it was reviewed in recent office visit. Attempted 6MWT and patient bradycardic in the 40s which she reports is a normal finding when she assesses at home, encouraged patient to discuss with cardiology as she may need adjustments in rate controlled medications. Discussed importance of using nebulized therapies as well as diet recommendations to minimize aspiration with thin liquids. She currently uses 2L on exertion, and 1L at rest/NOC, encouraged to continue. Awaiting overnight oximetry on room air to assess need for supplemental oxygen NOC. CT chest from 2022 revealed fairly extensive faint groundglass opacities throughout both lungs with mild superimposed interlobar septal thickening with areas of groundglass change intermixed with areas of more lucent lung, creating a mosaic appearance. Findings most likely represent organizing pneumonia secondary to extensive multifocal pneumonia seen in 12/2021. Repeat imaging continues to reveal multilobar pulmonary disease most groundglass in the right apex could be related to atypical pneumonia, drug reaction, and/or chronic interstitial lung disease such as fibrotic hypersensitivity pneumonitis . We discussed the likelihood of ggo reflecting fluid and to double lasix for the next 3 days and monitor symptoms. Will also send for labs to assess for any underlying autoimmune condition contributing to findings as well as HSP and BNP. If no improvement with lasix will consider prednisone. She is aware if symptoms worsen to seek emergent care. She has upcoming PFT scheduled next month. All questions were answered and patient is in agreement of plan. Will follow up to review results or sooner if needed. Orders: Orders B Type Natriuretic Peptide 09/23/24 J84.9 - Interstitial pulmonary disease, unspecified GAYLE Reflex Titer and Pattern 09/23/24 J84.9 - Interstitial pulmonary disease, unspecified Rheumatoid Factor 09/23/24 J84.9 - Interstitial pulmonary disease, unspecified Hypersensitive Pneumonitis Prf 09/23/24 J84.9 - Interstitial pulmonary disease, unspecified Blood Urea Nitrogen 09/23/24 Z01.818 - Encounter for other preprocedural examination Sjogren's Antibodies 09/23/24 J84.9 - Interstitial pulmonary disease, unspecified Scleroderma 70 Antibody 09/23/24 J84.9 - Interstitial pulmonary disease, unspecified Anti DNA DS Antibody 09/23/24 J84.9 - Interstitial pulmonary disease, unspecified Cyclic Citrullinated Peptide 09/23/24 J84.9 - Interstitial pulmonary disease, unspecified Creatinine 09/23/24 Z01.818 - Encounter for other preprocedural examination Medications: New albuterol sulfate 2.5 mg (3 mL) inhalation Q4-6H PRN 180 mL 0RF shortness of breath or wheezing Coding Level of Care Code Est Pt Level 4 (75165) Complex EM visit Add On G2211 Diagnoses Chronic respiratory failure with hypoxia J96.11 Pulmonary hypertension I27.20 Aspiration pneumonitis J69.0 Interstitial lung disease J84.9
[2024-09-23 12:57] VITALS: BP 130/68; PULSE 50; O2SAT 99; BMI 29.6
== END 2024-09-23 13:46 | disposition home or self-care (01) ==
LOC: HO.HPSW 12:48
PROVIDERS: PCP Nurse Practitioner Primary Care; Visit Provider Nurse Practitioner Family
DX: J96.11 Chronic respiratory failure with hypoxia (principal); I27.20 Pulmonary hypertension, unspecified; J69.0 Pneumonitis due to inhalation of food and vomit; J84.9 Interstitial pulmonary disease, unspecified
CPT/HCPCS: 99214; G2211

== ENCOUNTER → 2024-09-23 12:47 | Outpatient (BNVA) | payer OTHER, SELFPAY | PROVIDERS: PCP Nurse Practitioner Primary Care; Visit Provider Nurse Practitioner Family | DX: J96.11 Chronic respiratory failure with hypoxia (principal); I27.20 Pulmonary hypertension, unspecified; J69.0 Pneumonitis due to inhalation of food and vomit; J84.9 Interstitial pulmonary disease, unspecified | CPT/HCPCS: 99212 ==

== ENCOUNTER 2024-11-02 15:02 | Outpatient (AMB) | payer OTHER, SELFPAY ==
--- NOTE | 2024-11-02 15:05 | A.OFFVIS_ITS ---
Vital Signs 11/02/24 15:06 Height 4 ft 11 in Weight 145 lb 8 oz BMI 29.4 BP 132/54 L Blood Pressure Location Rt brachial Position Sitting Pulse 63 Pulse Source Pulse Oximeter Pulse Oximetry (%) 96 Oxygen Delivery Method Nasal Cannula Oxygen Flow Rate 2 Intake Visit Reasons: Interstitial lung disease Allergies No Known Allergies (No Known Allergies*) Allergy (Unverified 11/02/24 15:09) HPI HPI Interstitial lung disease: Details: Ratna is a pleasant 84-year-old female, never smoker, with underlying history of interstitial lung disease, chronic respiratory failure O2 dependent, CHF, hypertension, hyperlipidemia, CABG x3, atrial fibrillation on Xarelto, diabetes, GERD, chronic kidney disease, and left vocal cord paralysis with history of Botox injections through ENT. She was initially referred by PCP for pulmonary evaluation due to known history of interstitial lung disease. She was previously under the care of [facility] however transferred to this office. Per referral patient has had 9 admissions in 2021 related to acute on chronic respiratory failure, with known history of silent aspiration. Last MBSS 2023. Reviewed pulmonary records which stated likely aspiration related pneumonitis. She does admit to not consistently using thickener with liquids which results in productive cough. Prior CT chest from 2022 revealed fairly extensive faint groundglass opacities throughout both lungs with mild superimposed interlobar septal thickening with areas of groundglass change intermixed with areas of more lucent lung, creating a mosaic appearance. Findings most likely represent organizing pneumonia secondary to extensive multifocal pneumonia seen in 12/2021. Recent repeat imaging continues to reveal multilobar pulmonary disease most groundglass in the right apex could be related to atypical pneumonia, drug reaction, and/or chronic interstitial lung disease such as fibrotic hypersensitivity pneumonitis . We discussed the likelihood of ggo reflecting fluid and to double lasix for the next 3 days and monitor symptoms, unfortunately patient had no improvements with increased lasix or trial of prednisone. She was also sent for labs to assess for any underlying autoimmune condition contributing to findings as well as HSP and BNP, but has yet to have performed, agreeable to have done today. She is under the care of cardiology through [facility], last echo 2020 revealed moderate pulmonary hypertension RSVP 50-55, repeat echo revealed very severe pulmonary hypertension. Patient was evaluated by cardiology however did not review report. Advised patient to reach out to have cardiology review continues to await call from their office as she would likely benefit from right heart cath for further evaluation. Since the last visit patient reports URI with persistent cough unable to expectorate and continues with worsening cough after fluid intake. Denies fevers, endorses chills. Dyspnea is at baseline, denies wheezing. She currently uses nebulized albuterol/DuoNeb however infrequently. She has been using 1-2L with exertion and 1L with rest. Today she presents to review overnight oximetry. [facility] Medical History Diabetes Heart attack Kidney disease Surgical History H/O: hysterectomy Social History Patient Tobacco Use Status: Never used Tobacco Review of Systems Const Denies excessive sweating, Denies fever(s), Denies headache(s) and Denies night sweats Eyes Denies dry eyes, Denies irritation and Denies itchy eyes ENT Reports Normal hearing present, Denies headache(s), Denies nasal congestion, Denies nasal discharge, Denies post nasal drip and Denies sore throat Card Denies chest pain, Denies chest pain at rest, Denies chest pain with activity, Denies claudication, Reports dyspnea on exertion and Denies paroxysmal nocturnal dyspnea Resp Reports cough, Denies excessive phlegm production, Denies pain on inspiration, Denies pain with cough, Reports dyspnea on exertion and Denies stridor Musc Denies myalgias Neuro Reports Normal hearing present and Denies headache(s) Endo Denies excessive sweating Gaudencio/Lymph Denies lymphadenopathy Aller/Immun Denies itchy eyes and Denies seasonal rhinorrhea Physical Exam Vital Signs: Last Vital Signs Pulse 63 11/02/24 15:06 BP 132/54 L 11/02/24 15:06 Pulse Ox 96 11/02/24 15:06 Oxygen Delivery Method Nasal Cannula 11/02/24 15:06 Oxygen Flow Rate 2 11/02/24 15:06 BMI result Body Mass Index 29.4 Const General: cooperative, comfortable, no acute distress, well developed, alert and tired appearing Nutritional Appearance: obese Orientation/consciousness: patient oriented x3 HEENT Head: Yes normal to inspection, Yes normocephalic and Yes atraumatic Ears: hearing grossly normal bilaterally and external ears normal Eyes General: appearance normal, both eyes and all related structures Eyelids: Yes eyelids normal Sclerae: sclerae normal EOM: EOMs intact bilaterally Neck Neck: Yes normal visual inspection and Yes no lymphadenopathy Lymphatic: no lymphadenopathy noted Chest Chest palpation & inspection: normal inspection of the chest Resp Other: scattered rhonchi, inspiratory crackles LLL Effort & Inspection: normal respiratory effort, able to speak in complete sentences, no audible wheezes, no cough, no stridor, not tachypneic, no tripod positioning and no use of accessory muscles Auscultation: diminished lung sounds Cardio Jugular venous distension: no JVD Rate: regular rate Rhythm: regular rhythm Skin Other: warm, dry General skin exam: no rashes or lesions noted Neuro General: patient oriented x3 Cranial nerves: Yes Normal hearing present Cognition (Neuro): normal cognition Gait exam (Neuro): Normal gait present Extrem Other: trace pedal edema General: Yes normal to inspection Psych Appearance: grossly normal and well kempt Speech and movement: Normal speech and movement present and Clear speech present Affect: normal affect Attitude: cooperative Thought process: Normal thought process present Thought content: Normal thought content present Insight: Good insight present (Psych) Judgement: Good judgement present (Psych) Assessment & Plan Assessment & Plan (1) Chronic respiratory failure with hypoxia: Code(s): J96.11 - Chronic respiratory failure with hypoxia Category: Medical (2) Pulmonary hypertension: Code(s): I27.20 - Pulmonary hypertension, unspecified Category: Medical (3) Aspiration pneumonitis: Code(s): J69.0 - Pneumonitis due to inhalation of food and vomit Category: Medical (4) Interstitial lung disease: Code(s): J84.9 - Interstitial pulmonary disease, unspecified Category: Medical Plan Again reviewed echo which revealed severe pulmonary HTN and encouraged patient to reach out to cardiology to further evaluate for the potential of right heart cath. Currently compliant with Lasix 40 mg BID. Discussed importance of using nebulized therapies as well as diet recommendations to minimize aspiration with thin liquids. She currently uses 2L on exertion, and 1L at rest/NOC, encouraged to continue. Overnight oximetry confirmed nocturnal hypoxemia on room air <88% for 30 minutes as well as 23 desaturation events per hour suggestive of unde rlying MIRACLE. Agreeable to in lab PSG given need for nocturnal supplemental oxygen. At this time patient with worsening cough and difficulty expectorating with known history of aspiration. Will treat with Augmentin, side effects reviewed. Aware to seek emergent care if symptoms worsen. Agreeable to have labs performed today to further assess for underlying cause of ILD other than aspiration. All questions were answered and patient is in agreement of plan. Will follow up in 4 weeks or sooner if needed. Orders: Orders RT PSG in-lab sleep study Today G47.34 - Idiopathic sleep related nonobstructive alveolar hypoventilation, R40.0 - Somnolence Medications: New amoxicillin-pot clavulanate 875-125 mg 1 tab PO Q12H 20 tabs 0RF Coding Level of Care Code Est Pt Level 4 (76432) Complex EM visit Add On G2211 Diagnoses Chronic respiratory failure with hypoxia J96.11 Pulmonary hypertension I27.20 Aspiration pneumonitis J69.0 Interstitial lung disease J84.9
[2024-11-02 15:06] VITALS: BP 132/54; PULSE 63; O2SAT 96; BMI 29.4
--- OUTSIDE RECORDS SUMMARY | 2024-11-02 18:35 | XMS_ITS | Clinical Summary ---
Author Organization [facility] Address [address] [place] [address] Care Team Providers Care Meat Washer Name Role Phone Geno Shields Primary Care Provider [phone] Allergies No known active allergies Medications albuterol [...] of CABG > 10 years ago in [place]. Patient does not follow with a automobile mechanic helper at present. - Continue Aspirin 81 mg [...] (07/05/2020 3:42 PM EDT): Patient presented to [facility] on 07/02 with right lower [...] have buckled subsequently. She was evaluated at [place] and labs were grossly unremarkable but MRI [...] the L3-L4 level. Patient was transferred to [facility] for Neurosurgery consult - Continues [...] 100 mg BID - Due to elevated [id number] score, anticoagulate with rivaroxaban - [id number] Stroke Risk (5-year stroke rate based on [...] 07/06/2020 , 07/05/2020, 07/04/2020, Additional history exists Alcohol/Substance Use Screening 02/17/2024 Depression Screening and Follow-Up 02/17/2024 Health Care Proxy Review 02/17/2024 Social Drivers of Health Annual Screening 02/17/2024 COVID-19 Vaccine ( season) 2024 Influenza Vaccine (#1) 2024 Hepatitis B Vaccines Aged Out No long er eligible based on patient's age to complete this topic Procedures * Due to [place] law, this organization might not be sharing negative HIV tests. Procedure Name Priority Date/Time Associated Diagnosis Comments COMPREHENSIVE METABOLIC PANEL Timed 07/06/2020 5:21 AM EDT HEMOGLOBIN A1C Routine 07/04/2020 6:47 AM EDT from Last 3 Months or Most Recently Relevant to Health Maintenance Results * Due to [facility] law, this organization might not be sharing negative HIV tests. * (ABNORMAL) Comprehensive Metabolic Panel (07/06/2020 5:21 AM EDT) NA 140 135 - 145 mmol/L 07/06/2020 6:02 AM EDT [facility] K 4.0 3.5 - 5.3 mmol/L 07/06/2020 6:02 AM EDT [facility] Cl 104 97 - 110 mmol/L 07/06/2020 6:02 AM EDT [facility] CO2 33(H) 24 - 32 mmol/L 07/06/2020 6:02 AM EDT [facility] Anion Gap 3(L) 5 - 15 07/06/2020 6:02 AM EDT [facility] Glucose 87 70 - 99 mg/dL 07/06/2020 6:02 AM EDT [facility] Creatinine 1.01 0.50 - 1.20 mg/dL 07/06/2020 6:02 AM EDT [facility] eGFR Non- 54(L) >=90 mL/min/BS A 07/06/2020 6:02 AM T [facility] eGFR 62(L) >=90 mL/min/BS A 07/06/2020 6:02 AM T [facility] Comment: Units = mL/min/1.73 m2 Glomerular Filtration Rate (GFR) is estimated based on the CKD-EPI Creatinine Equation (2009). Stage Description GFR 1 Normal >=90 mL/min/BSA 2 Mildly decreased GFR 60-89 mL/min/BSA 3 Moderately decreased GFR 30-59 mL/min/BSA 4 Severely decreased GFR 15-29 mL/min/BSA 5 Kidney Failure <15 mL/min/BSA Calcium 8.9 8.7 - 10.7 mg/dL 07/06/2020 6:02 AM T [facility] Total Protein 6.2 6.0 - 8.0 g/dL 07/06/2020 6:02 AM [facility] Albumin 3.5 3.5 - 4.8 g/dL 07/06/2020 6:02 AM [facility] Bilirubin, Total 0.6 0.3 - 1.2 mg/dL 07/06/2020 6:02 AM [facility] Alkaline Phosphatase 88 30 - 115 U/L 07/06/2020 6:02 AM T [facility] AST 14 10 - 40 U/L 07/06/2020 6:02 AM [facility] ALT 9(L) 10 - 40 U/L 07/06/2020 6:02 AM [facility] BUN 24(H) 7 - 23 mg/dL 07/06/2020 6:02 AM [facility] Blood Structure of peripheral vein / Unknown Venipuncture / Unknown 07/06/2020 5:21 AM EDT 07/06/2020 5:28 AM EDT Mell Damon MD LAB BLOOD ORDERABLES Final Resul t Performing Organization Address [facility] Co de Phone Number [facility] [address] [place] [address], * (ABNORMAL) Hemoglobin A1c (07/04/2020 6:47 AM EDT) Hemoglobin A1C 7.0(H) <5.7 % of total Hgb 07/04/2020 1:43 PM EDT [facility] Comment: For someone without known diabetes, a [...] (MG/DL) 154 (calc) 07/04/2020 1:43 PM EDT [facility] eAG (MMOL/L) 8.5 (calc) 07/04/2020 1:43 PM EDT [facility] Blood Structure of peripheral vein / Unknown Venipuncture / Unknown 07/04/2020 6:47 AM EDT 07/04/2020 7:05 AM EDT [facility] - 07/04/2020 1:43 PM EDT [facility] Received Date: Mell Damon MD LAB BLOOD ORDERABLES Final Resul t Performing Organization Address [facility] Co de Phone Number [facility] [address], [place] [address], [place] [phone] My Point...Exactly [facility] [address], [place] [address], [place] [phone] from Last 3 Months or Most Recently Relevant to Health Maintenance Insurance [facility] [employer] [place]SE VALENZUELA [id number] Advance Directives * DNR/DNI (Latest Code Status on File) Date Activated Date Inactivated Comments 07/03/2020 6:45 PM 07/06/2020 3:22 PM * Presumed Full Code Date Activated Date Inactivated Comments 07/03/2020 3:06 PM 07/03/2020 6:45 PM Care Teams Meat Washer Relationship Specialty Start Date End Date Geno Shields [address] [place] [address] PCP - General 07/03/20
== END 2024-11-02 15:32 | disposition home or self-care (01) ==
LOC: HO.HPSW 15:03
PROVIDERS: PCP Nurse Practitioner Primary Care; Visit Provider Nurse Practitioner Family
DX: J96.11 Chronic respiratory failure with hypoxia (principal); I27.20 Pulmonary hypertension, unspecified; J69.0 Pneumonitis due to inhalation of food and vomit; J84.9 Interstitial pulmonary disease, unspecified
CPT/HCPCS: 99214; G2211

== ENCOUNTER 2024-11-02 15:02 | Outpatient (REF) | payer OTHER, SELFPAY ==
[2024-11-02 20:17] LABS: B Type Natriuretic Peptide 961 pg/mL (<100)
[2024-11-02 21:06] LABS: Blood Urea Nitrogen 14 mg/dL (9-16); Estimated Glomerular Filt Rate 40
[2024-11-06 23:38] LABS: Antibody to SS-A Antigen <1.0 NEG AI (<1.0 NEG); Antibody to SS-B Antigen <1.0 NEG AI (<1.0 NEG)
[2024-11-07 15:43] LABS: Anti Nuclear Antibody Pattern Nuclear, Homogeneous; Anti Nuclear Antibody Screen POSITIVE (NEGATIVE); Anti Nuclear Antibody Titer 1:160 titer
[2024-11-10 15:38] LABS: Asperg fumigatus Precip Abs NEGATIVE (NEGATIVE); Micropoly faeni Abs NEGATIVE (NEGATIVE); Saccharo pora viridis Abs NEGATIVE (NEGATIVE); Thermo candidus Abs NEGATIVE (NEGATIVE)
== END 2024-11-02 15:03 | disposition home or self-care (01) ==
LOC: HO.WFDLDS 15:02
PROVIDERS: PCP Nurse Practitioner Primary Care; Visit Provider Nurse Practitioner Family
DX: Z01.818 Encounter for other preprocedural examination (principal); Z01.84 Encounter for antibody response examination; J84.9 Interstitial pulmonary disease, unspecified; J96.11 Chronic respiratory failure with hypoxia; I27.20 Pulmonary hypertension, unspecified; J69.0 Pneumonitis due to inhalation of food and vomit; G47.34 Idiopathic sleep related nonobstructive alveolar hypoventilation; R40.0 Somnolence; Z99.81 Dependence on supplemental oxygen
CPT/HCPCS: 36415; 82565; 83880; 84520; 86038; 86039; 86200; 86225; 86235; 86331; 86431; 86606; 86609; 99212

== ENCOUNTER 2024-11-25 13:30 | Outpatient (REF) | payer OTHER, SELFPAY ==
--- NOTE | 2024-11-25 13:35 | PFT_ITS ---
Flows: FEV1: 63 % of predicted at 0.99 L FVC: 57 % of predicted at 1.17 L FEV1/FVC: 84 % Bronchodilator response: Absent Volumes: Patient unable to perform lung volume maneuvers. Diffusion capacity: Severely decreased, adjusts to being moderately decreased after correction for alveolar ventilation. Impression: No obstructive ventilatory defect. Spirometry suggests restrictive ventilatory defect. Patient was unable to perform lung volume maneuvers. Decreased diffusion capacity with suggested restrictive ventilatory defect points to likely pulmonary parenchymal disease. Clinical correlation is advised. MTDD
[2024-11-25 14:05] VITALS: PULSE 53; O2SAT 99
== END 2024-11-25 13:31 | disposition home or self-care (01) ==
LOC: HO.RESP 13:30
PROVIDERS: PCP Nurse Practitioner Primary Care; Visit Provider Nurse Practitioner Family
DX: J96.11 Chronic respiratory failure with hypoxia (principal)
CPT/HCPCS: 94060; 94640; 94729

== ENCOUNTER → 2024-11-25 13:35 | Outpatient (BNV) | payer OTHER, SELFPAY | PROVIDERS: PCP Nurse Practitioner Primary Care; Visit Provider Internal Medicine Pulmonary Disease | DX: J96.11 Chronic respiratory failure with hypoxia (principal) | CPT/HCPCS: 94060; 94729 ==

== ENCOUNTER 2024-11-29 15:08 | Outpatient (AMB) | payer OTHER, SELFPAY ==
--- NOTE | 2024-11-29 15:17 | A.OFFVIS_ITS ---
Vital Signs 11/29/24 15:18 Height 4 ft 11 in Weight 141 lb 4 oz BMI 28.5 BP 118/56 L Blood Pressure Location Lt brachial Position Sitting Pulse 60 Pulse Source Pulse Oximeter Pulse Oximetry (%) 94 Oxygen Delivery Method Nasal Cannula Oxygen Flow Rate 2 Intake Visit Reasons: Interstitial lung disease Allergies No Known Allergies (No Known Allergies*) Allergy (Unverified 11/29/24 15:23) HPI HPI Interstitial lung disease: Details: Ratna is a pleasant 84-year-old female, never smoker, with underlying history of interstitial lung disease, chronic respiratory failure O2 dependent, CHF, hypertension, hyperlipidemia, CABG x3, atrial fibrillation on Xarelto, diabetes, GERD, chronic kidney disease, and left vocal cord paralysis with history of Botox injections through ENT. She was initially referred by PCP for pulmonary evaluation due to known history of interstitial lung disease. Per referral patient has had 9 admissions in 2021 related to acute on chronic respiratory failure, with known history of silent aspiration. Last MBSS 2023. Reviewed pulmonary records which stated likely aspiration related pneumonitis. She does admit to not using thickener with liquids which results in productive cough. Prior CT chest from 2022 revealed fairly extensive faint groundglass opacities throughout both lungs with mild superimposed interlobar septal thickening with areas of groundglass change intermixed with areas of more lucent lung, creating a mosaic appearance. Findings most likely represent organizing pneumonia secondary to extensive multifocal pneumonia seen in 12/2021. Recent repeat imaging continues to reveal multilobar pulmonary disease most groundglass in the right apex could be related to atypical pneumonia, drug reaction, and/or chronic interstitial lung disease such as fibrotic hypersensitivity pneumonitis . We discussed the likelihood of ggo reflecting fluid and to double lasix for the next 3 days and monitor symptoms, unfortunately patient had no improvements with increased lasix or trial of prednisone. Will have repeat chest CT. She was also sent for labs to assess for any underlying autoimmune condition contributing to findings which revealed elevated RF and GAYLE. She has not been evaluated by Rheumatology in the past. She is under the care of cardiology through [facility], last echo 2020 revealed moderate pulmonary hypertension RSVP 50-55, repeat echo revealed very severe pulmonary hypertension RSVP 100. Patient was evaluated by cardiology who adjusted medications, patient currently on lasix 40 mg BID. Recommendations made for pulmonary HTN clinic which I agree with. Previously discussed importance of right heart cath to further assess pulmonary pressures however cardiology did not address this. She has been using 1-2L with exertion and 1L with rest, 1L NOC. Overnight oximetry confirmed nocturnal hypoxemia on room air <88% for 30 minutes as well as 23 desaturation events per hour suggestive of underlying MIRACLE, and will be undergoing sleep study. At this time, she denies cough other than with eating, dyspnea in addition to overall fatigue. Denies BLE edema. She was seen at [facility] ED as BNP significantly elevated and recommended IV lasix however patient was discharged per pt request without additional diuresis. [facility] Medical History Diabetes Heart attack Kidney disease Surgical History H/O: hysterectomy Social History Patient Tobacco Use Status: Never used Tobacco Review of Systems Const Denies excessive sweating, Denies fever(s), Denies headache(s) and Denies night sweats Eyes Denies dry eyes, Denies irritation and Denies itchy eyes ENT Reports Normal hearing present, Denies headache(s), Denies nasal congestion, Denies nasal discharge, Denies post nasal drip and Denies sore throat Card Denies chest pain, Denies chest pain at rest, Denies chest pain with activity, Denies claudication, Reports dyspnea on exertion and Denies paroxysmal nocturnal dyspnea Resp Reports cough, Denies excessive phlegm production, Denies pain on inspiration, Denies pain with cough, Reports dyspnea on exertion and Denies stridor Musc Denies myalgias Neuro Reports Normal hearing present and Denies headache(s) Endo Denies excessive sweating Gaudencio/Lymph Denies lymphadenopathy Aller/Immun Denies itchy eyes and Denies seasonal rhinorrhea Physical Exam Vital Signs: Last Vital Signs Pulse 60 11/29/24 15:18 BP 118/56 L 11/29/24 15:18 Pulse Ox 94 11/29/24 15:18 Oxygen Delivery Method Nasal Cannula 11/29/24 15:18 Oxygen Flow Rate 2 11/29/24 15:18 BMI result Body Mass Index 28.5 Const General: cooperative, comfortable, no acute distress, well developed, alert and tired appearing Nutritional Appearance: obese Orientation/consciousness: patient oriented x3 HEENT Head: Yes normal to inspection, Yes normocephalic and Yes atraumatic Ears: hearing grossly normal bilaterally and external ears normal Eyes General: appearance normal, both eyes and all related structures Eyelids: Yes eyelids normal Sclerae: sclerae normal EOM: EOMs intact bilaterally Neck Neck: Yes normal visual inspection and Yes no lymphadenopathy Lymphatic: no lymphadenopathy noted Chest Chest palpation & inspection: normal inspection of the chest Resp Other: scattered rhonchi, inspiratory crackles LLL Effort & Inspection: normal respiratory effort, able to speak in complete sentences, no audible wheezes, no cough, no stridor, not tachypneic, no tripod positioning and no use of accessory muscles Auscultation: diminished lung sounds Cardio Jugular venous distension: no JVD Rate: regular rate Rhythm: regular rhythm Skin Other: warm, dry General skin exam: no rashes or lesions noted Neuro General: patient oriented x3 Cranial nerves: Yes Normal hearing present Cognition (Neuro): normal cognition Gait exam (Neuro): Normal gait present Extrem Other: trace pedal edema General: Yes normal to inspection Psych Appearance: grossly normal and well kempt Speech and movement: Normal speech and movement present and Clear speech present Affect: normal affect Attitude: cooperative Thought process: Normal thought process present Thought content: Normal thought content present Insight: Good insight present (Psych) Judgement: Good judgement present (Psych) Assessment & Plan Assessment & Plan (1) Chronic respiratory failure with hypoxia: Code(s): J96.11 - Chronic respiratory failure with hypoxia Category: Medical (2) Pulmonary hypertension: Code(s): I27.20 - Pulmonary hypertension, unspecified Category: Medical (3) Aspiration pneumonitis: Code(s): J69.0 - Pneumonitis due to inhalation of food and vomit Category: Medical (4) Interstitial lung disease: Code(s): J84.9 - Interstitial pulmonary disease, unspecified Category: Medical Plan Patient likely has multifactorial contributions from aspiration, CHF and untreated MIRACLE contributing to pulmonary HTN. Again reviewed echo which revealed severe pulmonary HTN and encouraged patient to reach out to cardiology to further evaluate for the potential of right heart cath. Encouraged patient to see pulmonary HTN clinic through [facility] will also enter referral, unclear if order was placed by surveillance specialist. Currently compliant with Lasix 40 mg BID. Discussed importance of using nebulized therapies and most importantly diet recommendations to minimize aspiration with thin liquids which she is reluctant to do.. She currently uses 2L on exertion, and 1L at rest/NOC, encouraged to continue. Aware to seek emergent care if symptoms worsen. All questions were answered and patient is in agreement of plan. Will follow up in 4 weeks or sooner if needed. Orders: Orders CT chest wo IV con Today J84.9 - Interstitial pulmonary disease, unspecified Referrals Pulmonology Referral I27.20 - Pulmonary hypertension, unspecified Coding Level of Care Code Est Pt Level 4 (62569) Complex EM visit Add On G2211 Diagnoses Chronic respiratory failure with hypoxia J96.11 Pulmonary hypertension I27.20 Aspiration pneumonitis J69.0 Interstitial lung disease J84.9
[2024-11-29 15:18] VITALS: BP 118/56; PULSE 60; O2SAT 94; BMI 28.5
--- OUTSIDE RECORDS SUMMARY | 2024-11-29 18:01 | XMS_ITS | Clinical Summary ---
Author Organization [facility] Address [address] [place] [address] Care Team Providers Care Honeycomb Decapper Name Role Phone Geno Shields Primary Care Provider [phone] Allergies No known active allergies Medications albuterol [...] Active Problems Problem Noted Date Diagnosed Date AREIL (acute kidney injury) 07/04/2020 Assessment & Plan [...] of CABG > 10 years ago in [place]. Patient does not follow with a line server at present. - Continue Aspirin 81 mg [...] (07/05/2020 3:42 PM EDT): Patient presented to [facility] on 07/02 with right lower [...] have buckled subsequently. She was evaluated at [place] and labs were grossly unremarkable but MRI [...] the L3-L4 level. Patient was transferred to [facility] for Neurosurgery consult - Continues to endorse [...] 100 mg BID - Due to elevated [id number] score, anticoagulate with rivaroxaban - [id number] Stroke Risk (5-year stroke rate based on [...] complete this topic Procedures * Due to [place] [employer] law, this organization might not be sharing negative HIV tests. Procedure Name Priority Date/Time Associated Diagnosis Comments COMPREHENSIVE METABOLIC PANEL Timed 07/06/2020 5:21 AM EDT HEMOGLOBIN A1C Routine 07/04/2020 6:47 AM EDT from Last 3 Months or Most Recently Relevant to Health Maintenance Results * Due to [facility] law, this organization might not be sharing negative HIV tests. * (ABNORMAL) Comprehensive Metabolic Panel (07/06/2020 5:21 AM EDT) NA 140 135 - 145 mmol/L 07/06/2020 6:02 AM EDT [facility] K 4.0 3.5 - 5.3 mmol/L 07/06/2020 6:02 AM EDT [facility] Cl 104 97 - 110 mmol/L 07/06/2020 6:02 AM EDT [facility] CO2 33(H) 24 - 32 mmol/L 07/06/2020 6:02 AM EDT [facility] Anion Gap 3(L) 5 - 15 07/06/2020 6:02 AM EDT [facility] Glucose 87 70 - 99 mg/dL 07/06/2020 6:02 AM EDT [facility] Creatinine 1.01 0.50 - 1.20 mg/dL 07/06/2020 6:02 AM EDT [facility] eGFR Non- 54(L) >=90 mL/min/BS A 07/06/2020 6:02 AM T [facility] eGFR 62(L) >=90 mL/min/BS A 07/06/2020 6:02 AM T [facility] Comment: Units = mL/min/1.73 m2 Glomerular Filtration Rate (GFR) is estimated based on the CKD-EPI Creatinine Equation (2009). Stage Description GFR 1 Normal >=90 mL/min/BSA 2 Mildly decreased GFR 60-89 mL/min/BSA 3 Moderately decreased GFR 30-59 mL/min/BSA 4 Severely decreased GFR 15-29 mL/min/BSA 5 Kidney Failure <15 mL/min/BSA Calcium 8.9 8.7 - 10.7 mg/dL 07/06/2020 6:02 AM T [facility] Total Protein 6.2 6.0 - 8.0 g/dL 07/06/2020 6:02 AM [facility] Albumin 3.5 3.5 - 4.8 g/dL 07/06/2020 6:02 AM [facility] Bilirubin, Total 0.6 0.3 - 1.2 mg/dL 07/06/2020 6:02 AM [facility] Alkaline Phosphatase 88 30 - 115 U/L 07/06/2020 6:02 AM T [facility] AST 14 10 - 40 U/L 07/06/2020 6:02 AM [facility] ALT 9(L) 10 - 40 U/L 07/06/2020 6:02 AM [facility] BUN 24(H) 7 - 23 mg/dL 07/06/2020 6:02 AM [facility] Blood Structure of peripheral vein / Unknown Venipuncture / Unknown 07/06/2020 5:21 AM EDT 07/06/2020 5:28 AM EDT Mell Damon MD LAB BLOOD ORDERABLES Final Resul t Performing Organization Address [facility] Co de Phone Number [facility] [address] [place] [address], * (ABNORMAL) Hemoglobin A1c (07/04/2020 6:47 AM EDT) Hemoglobin A1C 7.0(H) <5.7 % of total Hgb 07/04/2020 1:43 PM EDT [employer] Comment: For someone without known diabetes, a [...] (MG/DL) 154 (calc) 07/04/2020 1:43 PM EDT [facility] eAG (MMOL/L) 8.5 (calc) 07/04/2020 1:43 PM EDT [facility] Blood Structure of peripheral vein / Unknown Venipuncture / Unknown 07/04/2020 6:47 AM EDT 07/04/2020 7:05 AM EDT [facility] - 07/04/2020 1:43 PM EDT [facility] Received Date: Mell Damon MD LAB BLOOD ORDERABLES Final Resul t Performing Organization Address [facility] Co de Phone Number [facility] [address], [place] [address], [place] [phone] [employer] [facility] [address], [place] [address], [place] [phone] from Last 3 Months or Most Recently Relevant to Health Maintenance Insurance [facility] JOSE VALENZUELA [id number] Advance Directives * DNR/DNI (Latest Code Status on File) Date Activated Date Inactivated Comments 07/03/2020 6:45 PM 07/06/2020 3:22 PM * Presumed Full Code Date Activated Date Inactivated Comments 07/03/2020 3:06 PM 07/03/2020 6:45 PM Care Teams Honeycomb Decapper Relationship Specialty Start Date End Date Geno Shields [address] [place] [address] PCP - General 07/03/20
--- OUTSIDE RECORDS SUMMARY | 2024-11-29 18:01 | XMS_ITS | Continuity of Care Document ---
Author Name [facility] Address [address] [place] [id number] Organization Unknown Address [address] [place] [address] Medications No known medications Problems No known problems
--- OUTSIDE RECORDS SUMMARY | 2024-11-29 18:01 | XMS_ITS | Encounter Summary ---
Author Organization [facility] Address [address] [place] [address] Encounters * CPT with Medical [facility] at [facility] on 2024-11-07 { reasonForRequest : PT's son reporting elevated pressure on the lungs\n\nBnp shows 961 , patientReports : Cough, fever greater than 2 days ; Cough , denie s :[ Increased work of breathing/labored with or without fever , Unable to speak in full sentences without distress , Discoloration of skin -cyanosis , Needs to sleep sitting up, can t catch breath , Shortness of breath in setting of confusion", Lower extremity swelling , History of asthma, increased use of inhaler ,"Sputum increase , Shortness of breath with exertion ], chiefComplaints": Abnormal Lab Value , pmh : Congestive Heart Failure, Coronary Artery Disease, Hypertension , allergies : No Known Drug Allergies , otherAller gies : , painAssessment : , visitOutcome : ", additionalComments : 84 y.o female \n\nSon calling for hesham castro, concerned for BNP 961. Pulmonary told her to go to the ER and they redid the BNP , but they left due to wait time, Hesham castro wanted her to have IV lasix. Explained that we cant do the BNP but can check her lungs and POC .\nShe also had an exray but they did not wait for the report \nShe does take lasix. \nShe does not have any lower edema\nShe is o2 dependent, 1 LNC at rest, 2LNC when ambulating. She is sating 96-98%. She does not have any shortness of breath.\nShe does have a cough, non productive. \nShe does not have any fever or chills. \nShe is refusing the ER at this time. \nRecommended calling a automotive parts specialist , to let them know \nI provided information on the mobile health provider response time and advised the patient and/or caregiver to monitor reported signs and symptoms. I discussed the warning signs of when to seek emergency care. } Pt chief complaint today of abnormal lab values. Pt is primary Syriac speaking and has her son as an clinical director. Pt stated that approx 4 days prior to [facility] arrival at scene she had her lab values drawn and was noted of a BNP of 961. Pt was brought to her local emergency department due to this. Unfortunately due to extended wait times at the facility the pt was not seen. Pt has since been at homeawaiting for her automotive parts specialist to communicate with her. Son of pt calls [facility] program today for another primary assessment, possible labs and treatment.pt today has no complaints of cp, sob, NVD, dizziness or changes in vision. NKDA. Nonneural focal exam, afebrile, vitals are note to be WNL for the baseline of the pt. Pt is non ambulatory throughout her visit with [facility]. Lungs or sent as clear bilaterally with no advantageous lung sounds noted. Benign abdominal assessment , no new and or worsening lower extremity edema noted. 23 gauge iv placed in right forearm while POC bloodwork is drawn. Low potassium level found on blood work,Pt is caox4 with a GCS of 15. [facility] consulted, Pt is informed of findings. Due to pt being stable and asymptomatic for any signs and symptoms currently. Pt is not instructed to report to her local emergency department, pt is given 40 mEq of oral potassium for Lo potassium values. Pt and son are informed to notify pcp at earliest convenience. Ptand son are educated on red flag S&S and told to call emergency services if any present. IV_(FLUIDS_AND/OR_MEDICATION), MEDICATION_IM, POC_BLOODWORK Written by [employer]ED on 2024-11-07
== END 2024-11-29 16:03 | disposition home or self-care (01) ==
LOC: HO.HPSW 15:09
PROVIDERS: PCP Nurse Practitioner Primary Care; Visit Provider Nurse Practitioner Family
DX: J96.11 Chronic respiratory failure with hypoxia (principal); I27.20 Pulmonary hypertension, unspecified; J69.0 Pneumonitis due to inhalation of food and vomit; J84.9 Interstitial pulmonary disease, unspecified
CPT/HCPCS: 99214; G2211

== ENCOUNTER → 2024-11-29 15:08 | Outpatient (BNVA) | payer OTHER, SELFPAY | PROVIDERS: PCP Nurse Practitioner Primary Care; Visit Provider Nurse Practitioner Family | DX: J96.11 Chronic respiratory failure with hypoxia (principal); J84.9 Interstitial pulmonary disease, unspecified; J69.0 Pneumonitis due to inhalation of food and vomit; I10 Essential (primary) hypertension; I50.9 Heart failure, unspecified; G47.33 Obstructive sleep apnea (adult) (pediatric) | CPT/HCPCS: 99212 ==

== ENCOUNTER → 2024-12-05 19:30 | Outpatient (REF) | payer OTHER, SELFPAY ==
--- OUTSIDE RECORDS SUMMARY | 2024-12-05 21:16 | XMS_ITS | Clinical Summary ---
Author Organization [facility] Address [address] [place] [address] Care Team Providers Care Senior Clinical Data Coordinator Name Role Phone Geno Shields Primary Care Provider [phone] Allergies No known active allergies Medications albuterol [...] of CABG > 10 years ago in [place]. 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 - Continue Aspirin 81 mg [...] (07/05/2020 3:42 PM EDT): Patient presented to [facility] on 07/02 with right lower extremity [...] have buckled subsequently. She was evaluated at [place] and labs were grossly unremarkable but MRI [...] the L3-L4 level. Patient was transferred to [facility] for Neurosurgery consult - Continues to [...] 100 mg BID - Due to elevated [id number] score, anticoagulate with rivaroxaban - [id number] Stroke Risk (5-year stroke rate based on [...] this topic Procedures * Due to [place] [employer] law, this organization might not be sharing negative HIV tests. Procedure Name Priority Date/Time Associated Diagnosis Comments COMPREHENSIVE METABOLIC PANEL Timed 07/06/2020 5:21 AM EDT HEMOGLOBIN A1C Routine 07/04/2020 6:47 AM EDT from Last 3 Months or Most Recently Relevant to Health Maintenance Results * Due to [facility] law, this organization might not be sharing negative HIV tests. * (ABNORMAL) Comprehensive Metabolic Panel (07/06/2020 5:21 AM EDT) NA 140 135 - 145 mmol/L 07/06/2020 6:02 AM EDT [facility] K 4.0 3.5 - 5.3 mmol/L 07/06/2020 6:02 AM EDT [facility] Cl 104 97 - 110 mmol/L 07/06/2020 6:02 AM EDT [facility] CO2 33(H) 24 - 32 mmol/L 07/06/2020 6:02 AM EDT [facility] Anion Gap 3(L) 5 - 15 07/06/2020 6:02 AM EDT [facility] Glucose 87 70 - 99 mg/dL 07/06/2020 6:02 AM EDT [facility] Creatinine 1.01 0.50 - 1.20 mg/dL 07/06/2020 6:02 AM EDT [facility] eGFR Non- 54(L) >=90 mL/min/BS A 07/06/2020 6:02 AM T [facility] eGFR 62(L) >=90 mL/min/BS A 07/06/2020 6:02 AM T [facility] Comment: Units = mL/min/1.73 m2 Glomerular Filtration Rate (GFR) is estimated based on the CKD-EPI Creatinine Equation (2009). Stage Description GFR 1 Normal >=90 mL/min/BSA 2 Mildly decreased GFR 60-89 mL/min/BSA 3 Moderately decreased GFR 30-59 mL/min/BSA 4 Severely decreased GFR 15-29 mL/min/BSA 5 Kidney Failure <15 mL/min/BSA Calcium 8.9 8.7 - 10.7 mg/dL 07/06/2020 6:02 AM T [facility] Total Protein 6.2 6.0 - 8.0 g/dL 07/06/2020 6:02 AM [facility] Albumin 3.5 3.5 - 4.8 g/dL 07/06/2020 6:02 AM [facility] Bilirubin, Total 0.6 0.3 - 1.2 mg/dL 07/06/2020 6:02 AM [facility] Alkaline Phosphatase 88 30 - 115 U/L 07/06/2020 6:02 AM T [facility] AST 14 10 - 40 U/L 07/06/2020 6:02 AM [facility] ALT 9(L) 10 - 40 U/L 07/06/2020 6:02 AM [facility] BUN 24(H) 7 - 23 mg/dL 07/06/2020 6:02 AM [facility] Blood Structure of peripheral vein / Unknown Venipuncture / Unknown 07/06/2020 5:21 AM EDT 07/06/2020 5:28 AM EDT Mell Damon MD LAB BLOOD ORDERABLES Final Resul t Performing Organization Address [facility] Co de Phone Number [facility] [address] [place] [address], * (ABNORMAL) Hemoglobin A1c (07/04/2020 6:47 AM EDT) Hemoglobin A1C 7.0(H) <5.7 % of total Hgb 07/04/2020 1:43 PM EDT [employer] Comment: For someone without known diabetes, a [...] (MG/DL) 154 (calc) 07/04/2020 1:43 PM EDT [employer] eAG (MMOL/L) 8.5 (calc) 07/04/2020 1:43 PM EDT [employer] Blood Structure of peripheral vein / Unknown Venipuncture / Unknown 07/04/2020 6:47 AM EDT 07/04/2020 7:05 AM EDT [facility] - 07/04/2020 1:43 PM EDT [facility] Received Date: Mell Damon MD LAB BLOOD ORDERABLES Final Resul t Performing Organization Address [facility] Co de Phone Number [facility] [address], [place] [address], [place] [phone] [employer] [facility] [address], [place] [address], [place] [phone] from Last 3 Months or Most Recently Relevant to Health Maintenance Insurance [facility] JOSE VALENZUELA [id number] Advance Directives * DNR/DNI (Latest Code Status on File) Date Activated Date Inactivated Comments 07/03/2020 6:45 PM 07/06/2020 3:22 PM * Presumed Full Code Date Activated Date Inactivated Comments 07/03/2020 3:06 PM 07/03/2020 6:45 PM Care Teams Senior Clinical Data Coordinator Relationship Specialty Start Date End Date Geno Shields [address] [place] [address] PCP - General 07/03/20
== END ==
LOC: HO.SL 19:30
PROVIDERS: PCP Nurse Practitioner Primary Care; Visit Provider Nurse Practitioner Family
DX: R40.0 Somnolence (principal); G47.34 Idiopathic sleep related nonobstructive alveolar hypoventilation; G47.61 Periodic limb movement disorder
CPT/HCPCS: 95810

== ENCOUNTER → 2024-12-05 21:33 | Outpatient (BNV) | payer OTHER, SELFPAY | PROVIDERS: PCP Nurse Practitioner Primary Care; Visit Provider Psychiatry & Neurology Neurology | DX: G47.61 Periodic limb movement disorder (principal) | CPT/HCPCS: 95810 ==

== ENCOUNTER 2024-12-28 09:13 | Outpatient (AMB) | payer OTHER, SELFPAY ==
[2024-12-28 09:18] VITALS: BP 122/48; PULSE 66; O2SAT 95; BMI 28.5
--- NOTE | 2024-12-28 09:18 | MHC.OFFVIS ---
Vital Signs 12/28/24 09:18 Height 4 ft 11 in Weight 141 lb 4 oz BMI 28.5 BP 122/48 L Blood Pressure Location Lt brachial Position Sitting Pulse 66 Pulse Source Pulse Oximeter Pulse Oximetry (%) 95 Oxygen Delivery Method Nasal Cannula Oxygen Flow Rate 1 Intake Visit Reasons: Interstitial lung disease Allergies No Known Allergies (No Known Allergies*) Allergy (Unverified 12/28/24 09:22) HPI HPI Interstitial lung disease: Details: Ratna is a pleasant 84-year-old female, never smoker, with underlying history of interstitial lung disease, severe pulmonary hypertension, chronic respiratory failure O2 dependent, CHF, hypertension, hyperlipidemia, CABG x3, atrial fibrillation on Xarelto, diabetes, GERD, chronic kidney disease, and left vocal cord paralysis with history of Botox injections through ENT. She was initially referred by PCP for pulmonary evaluation due to known history of interstitial lung disease. Per referral patient has had 9 admissions in 2021 related to acute on chronic respiratory failure, with known history of silent aspiration. Last MBSS 2023. Reviewed pulmonary records which stated likely aspiration related pneumonitis. She does admit to not using thickener with liquids which results in productive cough, however has been working towards eating slower ultimately with less coughing with intake overall. Prior CT chest from 2022 revealed fairly extensive faint groundglass opacities throughout both lungs with mild superimposed interlobar septal thickening with areas of groundglass change intermixed with areas of more lucent lung, creating a mosaic appearance. Findings most likely represent organizing pneumonia secondary to extensive multifocal pneumonia seen in 12/2021. Recent repeat imaging continues to reveal multilobar pulmonary disease most groundglass in the right apex could be related to atypical pneumonia, drug reaction, and/or chronic interstitial lung disease such as fibrotic hypersensitivity pneumonitis . We discussed the likelihood of ggo reflecting fluid and to double lasix for the next 3 days and monitor symptoms, unfortunately patient had no improvements with increased lasix or trial of prednisone. Will have repeat chest CT scheduled in February. She was also sent for labs to assess for any underlying autoimmune condition contributing to findings which revealed elevated RF and GAYLE, has follow up with Rheumatology in February. She is under the care of cardiology through [facility], last echo 2020 revealed moderate pulmonary hypertension RSVP 50-55, repeat echo revealed very severe pulmonary hypertension RSVP 100. Patient was evaluated by cardiology who adjusted medications, patient currently on lasix 40 mg BID. Recommendations made for pulmonary HTN clinic which I agree with and also sent order for evaluation. Previously discussed importance of right heart cath to further assess pulmonary pressures however cardiology did not address this, which is why she should establish with the pulmonary HTN clinic for further work up. She has been using 1-2L with exertion and 1L with rest, 1L NOC, with improvements in dyspnea. Overnight oximetry confirmed nocturnal hypoxemia on room air <88% for 30 minutes as well as 23 desaturation events per hour suggestive of underlying MIRACLE. Today she presents to review sleep study results. [facility] Medical History Diabetes Heart attack Kidney disease Surgical History H/O: hysterectomy Social History Patient Tobacco Use Status: Never used Tobacco Review of Systems Const Denies excessive sweating, Denies fever(s), Denies headache(s) and Denies night sweats Eyes Denies dry eyes, Denies irritation and Denies itchy eyes ENT Reports Normal hearing present, Denies headache(s), Denies nasal congestion, Denies nasal discharge, Denies post nasal drip and Denies sore throat Card Denies chest pain, Denies chest pain at rest, Denies chest pain with activity, Denies claudication, Reports dyspnea on exertion and Denies paroxysmal nocturnal dyspnea Resp Reports cough, Denies excessive phlegm production, Denies pain on inspiration, Denies pain with cough, Reports dyspnea on exertion and Denies stridor Neuro Reports Normal hearing present and Denies headache(s) Endo Denies excessive sweating Gaudencio/Lymph Denies lymphadenopathy Aller/Immun Denies itchy eyes and Denies seasonal rhinorrhea Physical Exam Vital Signs: Last Vital Signs Pulse 66 12/28/24 09:18 BP 122/48 L 12/28/24 09:18 Pulse Ox 95 12/28/24 09:18 Oxygen Delivery Method Nasal Cannula 12/28/24 09:18 Oxygen Flow Rate 1 12/28/24 09:18 BMI result Body Mass Index 28.5 Const General: cooperative, comfortable, no acute distress, well developed, alert and tired appearing Nutritional Appearance: obese Orientation/consciousness: patient oriented x3 HEENT Head: Yes normal to inspection, Yes normocephalic and Yes atraumatic Ears: hearing grossly normal bilaterally and external ears normal Eyes General: appearance normal, both eyes and all related structures Eyelids: Yes eyelids normal Sclerae: sclerae normal EOM: EOMs intact bilaterally Neck Neck: Yes normal visual inspection and Yes no lymphadenopathy Lymphatic: no lymphadenopathy noted Chest Chest palpation & inspection: normal inspection of the chest Resp Effort & Inspection: normal respiratory effort, able to speak in complete sentences, no audible wheezes, no cough, no stridor, not tachypneic, no tripod positioning and no use of accessory muscles Auscultation: crackles (bibasilar) and diminished lung sounds Cardio Jugular venous distension: no JVD Rate: regular rate Rhythm: regular rhythm Skin Other: warm, dry General skin exam: no rashes or lesions noted Neuro General: patient oriented x3 Cranial nerves: Yes Normal hearing present Cognition (Neuro): normal cognition Gait exam (Neuro): Normal gait present Extrem Other: trace pedal edema General: Yes normal to inspection Psych Appearance: grossly normal and well kempt Speech and movement: Normal speech and movement present and Clear speech present Affect: normal affect Attitude: cooperative Thought process: Normal thought process present Thought content: Normal thought content present Insight: Good insight present (Psych) Judgement: Good judgement present (Psych) Assessment & Plan Assessment & Plan (1) Chronic respiratory failure with hypoxia: Code(s): J96.11 - Chronic respiratory failure with hypoxia Category: Medical (2) Pulmonary hypertension: Code(s): I27.20 - Pulmonary hypertension, unspecified Category: Medical (3) Aspiration pneumonitis: Code(s): J69.0 - Pneumonitis due to inhalation of food and vomit Category: Medical (4) Interstitial lung disease: Code(s): J84.9 - Interstitial pulmonary disease, unspecified Category: Medical (5) Positive antinuclear antibody: Code(s): R76.8 - Other specified abnormal immunological findings in serum Category: Medical Plan Reviewed sleep study which was negative for MIRACLE, demonstrated mild nocturnal hypoxemia with recommendations for 1L supplemental oxygen at [facility]. Patient likely has multifactorial contributions from aspiration, CHF and possible underlying autoimmune condition contributing to pulmonary HTN. Again reviewed echo which revealed severe pulmonary HTN and encouraged patient to reach out to cardiology to further evaluate for the potential of right heart cath. Encouraged patient to see pulmonary HTN clinic through [facility], referral previously entered and patient given office number today to reach out. Currently compliant with Lasix 40 mg BID. Discussed importance of using nebulized therapies and most importantly diet recommendations to minimize aspiration with thin liquids which she is reluctant to do. She currently uses 1-2L pulsed on exertion, and 1L at rest/NOC, encouraged to continue to maintain oxygen saturation >92%. Aware to seek emergent care if symptoms worsen. All questions were answered and patient is in agreement of plan. Will follow up to review Chest CT results as well as rheumatology input or sooner if needed. Coding Level of Care Code Est Pt Level 4 (20330) Complex EM visit Add On G2211 Diagnoses Chronic respiratory failure with hypoxia J96.11 Pulmonary hypertension I27.20 Aspiration pneumonitis J69.0 Interstitial lung disease J84.9 Positive antinuclear antibody R76.8
--- OUTSIDE RECORDS SUMMARY | 2024-12-28 10:03 | XMS_ITS | Data Portability ---
Author Organization [place] - [employer] [facility], [place] [facility] Address [address] [place] [phone] Care Team Providers Care Atg Java Developer Name Role Phone HIM CCA OTHER [facility] Primary Care Provide r Assessment Encounter Date Assessment Date Assessment LastModified by Organization Details LastModified Time 06/02/2022 06/02/2022 I have reviewed and agree with the assessment and plan as documented by the vacuum technician. I provided real time medical direction for this encounter and was immediately available to provide additional phone based assistance as needed. History as noted by vacuum technician. Pt with history of CHF, COPD, HTN, DM. She and her son report about 6 weeks of a cough productive of clear sputum. [facility] with azith[facility] and [...] make a follow up appointment with her oil well fishing tool operator for repeat evaluation and management of her cough. 2. UTI. Pt with about 2 weeks of dysuria and history of UTI in the past. Son though pt seemed mildly confused yesterday, but today she appears well. Urine dip is c/w UTI today. Urine culture obtained and will be sent to [facility] lab. Pt medicated with cefpodoxime 200mg [...] recommend further routine follow up with PCP. [email or web address] Not available 08/21/2022 21:38:29 03/23/2023 03/23/2023 As noted, we alexandrea abrams called to see this patient regarding concerns of covid. 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 Was sent to ED for eval and possible IV diuresis but pt left without being seen after waiting for 7 hours. Today, pt is asymptomatic - she has no increased SOB from baseline, no CP, no changes in her ability to mobilize. No orthopnea or PND that is new. Her VS are wnl with SpO2 93% on her home 1L NC. Medic exam notable for clear lungs and no LE edema. BMP w K 3.3, Cr 1.1 (b/l). Given vitals, history, and exam, pt is at her baseline. Will give KCl 40mEq for mild hypokalemia. Should continue taking her oral diuretic. No indication for IV diuresis or other acute intervention at this time. Precautions reviewed w patient and family. [email or web address] Not available 11/07/2024 19:22:09 Plan of Treatment Reminders Order Date Submit Date Provider Last Modified By Organization Details Last Modified Time Details Appointments None recorded. Lab BMP, serum or plasma [facility] [address] [facility], [place], [id number] 19:07:59 culture, urine 2022 023 [facility] (Centralized Electronic Ordering - All Locations), Patient Can Go To The Location Of Their Choice, [id number] 3 10:37:48 urinalysis, dipstick 2022 023 [facility], [address] [place] [address], [id number] 3 15:02:07 Referral None recorded. Procedures None recorded. Surgeries None recorded. Imaging None recorded. Medication Orders potassium chloride ER 20 mEq tablet,exte nded release 2024 025 [email or web address] 7 [place], [place] - [id number], [address], [place], [address], 5 16:07:58 ipratropium 0.5 mg-albutero l 3 mg (2.5 mg base)/3 mL nebulizatio n soln 2023 024 [facility] [id number], [address], [place], [address], 4 15:52:52 Mucinex 600 mg tablet, extended release 2023 024 [place], [place] - [id number], [address], [place], [address], 4 12:15:44 cefpodoxime 200 mg tablet 2022 023 [facility] [id number], [address], [place], [address], 3 15:02:07 cefpodoxime 200 mg tablet 2022 023 [place] - [id number], [address], [place], [address], 3 15:11:28 prednisone 20 mg tablet 2022 023 [facility] [id number], [address], [place], [address], 3 15:02:07 prednisone 20 mg tablet 2022 023 [facility], [place] - [id number], [address], [place], [address], 3 15:11:28 albuterol sulfate 2.5 mg/3 mL (0.083 %) solution for nebulizatio n 2022 023 [facility], [place] - [id number], [address], [place], [address], 3 15:11:29 azithromyci n 250 mg tablet 2022 023 [facility], [place] - [id number], [address], [place], [address], 3 16:31:42 prednisone 20 mg tablet 2022 023 [facility], [place] - [id number], [address], [place], [address], 3 16:31:41 Patient TargetsNo targets recorded. Patient InstructionsNo instructions recorded. Reason for Referral None Reported. Results Created Date Observation Date Name Description Value Unit Range Abnormal Flag Note LastModifiedBy Organization Detail LastModifiedTime 06/03/1906/02/2022 URINE CULTU RE specimen description URINE Not [...] The Location Of Their Choice, 06/05/2022 10:37:48 06/03/192023 URINE CULTU RE amoxicillin/ clavulanic acid AMOXIC [...] 10:37:48 06/03/19 23 06/05/2022 URINE CULTU RE levofloxacin LEVOFL OXACIN SUSCEP [...] 10:37:48 06/03/19 23 06/05/2022 URINE CULTU RE ertapenem ERTAPE NEM SUSCEP [...] 10:37:48 06/03/19 23 06/05/2022 URINE CULTU RE tetracycline TETRAC YCLINE SUSCEP TIBLE susceptib le Not Available [facility] (Centralized Electronic Ordering - All Locations) Patient Can Go To The Location Of Their Choice, [id number] 06/05/2022 10:37:48 06/03/1906/02/2022 urina lysis , dipst ick Leukocytes positi ve Not Available [facility] ed [address] [place] [address], [phone] 06/02/2022 14:42:58 06/03/1906/02/2022 urina lysis , dipst ick Nitrite negati ve Not Available [facility] ed [address] [place] [address], [address] [place] [address] 06/02/2022 14:42:58 06/03/19 23 06/02/2022 urina lysis , dipst ick Protein positi ve Not Available [address], [address] [place] [address] 06/02/2022 14:42:58 06/03/1906/02/2022 urina lysis , dipst ick Blood positi ve Not Available [address], [phone] 06/02/2022 14:42:58 Result Notes None recorded. Medical [...] Available No t Available Comfort EZ Pen [place] 31 gauge x 3/16 USE TO INJECT insulin DAILY DIRECTED active Not Available Not Available No t Available Xarelto 15 mg tablet TAKE 1 TABLET BY MOUTH EVERY EVENING active Not Available Not Available No t Available [facility] spacer USE WITH symbicort AND albuterol DIRECTED active Not Available Not Available Not Available Dexcom G7 Embossing Calender Operator USE TO CHECK BLOOD SUGAR 4 (FOUR) TIMES DAILY active Not Available Not Available Not Available Dexcom G7 Sensor device CHECK BLOOD SUGAR 4 (FOUR) TIMES DAILY. replace sensor EVERY 10 DAYS active Not Available Not Available No t Available Vitals Date Recorded Heart rate Body temperature Respiratory [...] 97 % 2 L/min 149. 86 cm 53965.7 2 g 149/88 mm[Hg] Not Available [facility] - production 4 15:05:58 Date Recorded Respiratory rate Body weight Oxygen saturation Oxygen saturation in Arterial blood by Pulse oximetry Heart rate Body temperature Body temperature Oxygen saturation Oxygen saturation in Arterial blood by Pulse oximetry Body weight Respiratory rate Heart rate Provider Name and Address Organization Details Last Updated DateTime 3 18 /min 19415.1 28 g 97 % 97 % 77 /min 97.6 [degF] 97.6 [degF] 97 % 97 % 27480.1 28 g 18 /min 77 /min Not Available [facility] - production 3 16:49:03 Date Recorded Systolic And Diastolic Systolic And Diastolic Provider Name and Address Organization Details Last Updated DateTime 05/20/2022 143/70 mm[Hg] 143/70 mm[Hg] Not Available [employer] - production 05/20/2022 16:49:03 Date Recorded Body temperature Oxygen saturation Oxygen saturation in Arterial blood by Pulse oximetry Inhaled oxygen flow rate Respiratory rate Body weight Heart rate Body temperature Heart rate Body weight Respiratory rate Oxygen saturation Provider Name and Address Organization Details Last Updated DateTime 3 96.8 [degF] 99 % 99 % 1 L/min 18 /min 54063.3 52 g 78 /min 96.8 [degF] 78 /min 83698.3 52 g 18 /min 99 % Not Available [employer] - production 3 15:10:43 Date Recorded Oxygen saturation in Arterial blood by Pulse oximetry Inhaled oxygen flow rate Systolic And Diastolic Systolic And Diastolic Provider Name and Address Organization Details Last Updated DateTime 06/02/2022 99 % 1 L/min 145/59 mm[Hg] 145/59 mm[Hg] Not Available [employer] - production 3 15:10:43 Date Recorded Oxygen saturation Oxygen saturation in Arterial blood by Pulse oximetry Inhaled oxygen flow rate Respiratory rate Heart rate Body temperature Systolic And Diastolic Provider Name and Address Organization Details Last Updated DateTime 3 99 % 99 % 1 L/min 18 /min 73 /min 98.7 [degF] 156/79 mm[Hg] Not Available [employer] - production 3 18:02:22 Date Recorded Body temperature Body weight Heart rate Body height Oxygen saturation Oxygen saturation in Arterial blood by Pulse oximetry Inhaled oxygen flow rate Respiratory rate Systolic And Diastolic Provider Name and Address Organization Details Last Updated DateTime 5 97.8 [degF] 61228.2 48 g 75 /min 149.86 cm 93 % 93 % 1 L/min 17 /min 154/68 mm[Hg] Not Available [employer] - production 5 16:04:33 Social History None recorded. Functional Status None recorded. Mental Status None recorded. Family History Nothing Reported. Medical History No medical history recorded. Gynecological HistoryNo gynecological history recorded. Obstetrics History GPAL:G 0 P 0 0 0 0 Past Encounters Encounter ID Performer Location Encounter Start Date Encounter Closed Date Diagnosis/Indication Diagnosis SNOMED-CT Code Diagnosis ICD10 Code Diagnosis IMO Codes Diagnosis Note [id number] Benjamin Strauss MD Main - [facility] [address] [place] [id number] 04/05/2021 18:15:56 09/03/2021 12:06:43 [id number] Katharina Hoyt MD Main - [facility] [address] [place] [id number] 01/03/2022 13:59:39 01/06/2022 13:00:38 Acute exacerbation of chronic obstructive pulmonary disease 916660502 J44.1 w/ hypoxia/ respirator y distress/f ailure - sat improved to 90 on duoneb- now wheezing audible- able to get EKG which showed possible ischemia - 911 ALS arrived before medic could give solumedrol or check BS- report called to provider at [facility] [id number] Marino Dick MD Main - [facility] [address] [place] [id number] 03/11/2022 13:34:38 03/13/2022 10:30:35 Viral upper respiratory tract infection [id number] J06.9 [id number] Joseph Damon MD [facility] [address] [place] [id number] 03/21/2022 21:46:59 03/24/2022 12:27:32 History of urinary tract infection 7801725807 107 Z87.440 This 81-year-ol d female has a history of UTIs and her PCP wanted her to be checked for a UTI today. She has no symptoms and her U/A was normal. I see no evidence of a UTI, so I did not recommend any specific treatment. The patient agreed with this plan. [id number] Cher Leyva MD Main - [address] [phone] 05/20/2022 16:07:03 05/22/2022 10:26:44 Cough 67961245 R05.9 cough x3 weeks, exam notable for diffuse wheezing with a question of R basilar rales. COVID, flu negative. VSS. Suspect COPD exacerbati on +/- atypical pna. Will trial 5d pred and azithromyc in. Educated on warning signs/sx. [id number] Marino Dick MD Main - [facility] [address] [place] [id number] 06/02/2022 14:32:26 06/03/2022 11:46:46 Chronic cough 95263770 R05.3 Urinary symptoms 3167764 08 R39.9 [id number] BOB GIANG MD Main - [facility] [address] [place] [id number] 08/21/2022 18:02:20 08/21/2022 23:29:35 Post-discharge follow-up [id number] Z09 [id number] SAMUEL HORN MD Main - [facility] [address] [place] [phone] 03/23/2023 15:05:46 03/24/2023 10:19:16 Chronic obstructive pulmonary disease 79762175 J44.9 [id number] BOB GIANG MD [facility] [address] [place] [id number] 11/07/2024 16:04:23 11/08/2024 00:31:28 Hypokalemia 83136534 E87.6 9791 Health Concerns Section Related Observation LastModified by [...] ELIGIBLE (MEDICARE REPLACEMENT/ADV ANTAGE - HMO) Ratna Smith [id number] Ratna Smith 11/07/2024 1 [facility] - DOS ON OR AFTER 2022 - DUAL ELIGIBLE - SKILLED NURSING OPTIONS AND ONE CARE (MEDICARE REPLACEMENT/ADV ANTAGE - HMO) Ratna Smith [id number] Ratna Smith Notes Date Note Type Note Provider Name and Address Organization Details Recorded Time 05/20/2022 text/html [facility] Nursing Assessment: Reason For [...] .................... .................... .................... .................... .................... .................... . Motor Assembler Note From Hao Ingram: pt presenting with a cough x3 weeks. pt denies n/v/d/f/headache/cp/ sob. pt was prescribed benzonatate with no relief, pt had been taking robitussin dm with slight relief. lung sounds were clear in all tolliver. pt's cough has been productive with no color. flu/covid/strep test were all negative. [facility] contacted and requested a duoneb treatment then reassessment of the pt's lung sounds. after the duoneb, pt had diffuse wheezing throughout and rales in the lower left lobe. [facility] was informed of this and prescribed pt azithromyacin and prednisone. [facility] vacuum technician gave pt first dose 500mg of azithro and 40mg of prednisone PO. pt educated on s/s warranting a 911 call/trip to the hospital. pt informed to f/u in a few days if symptoms persist. .................... .................... .................... .................... .................... .................... .................... . Disposition: Fulfilled Cher Leyva MD [address] [place] [address],[address], [place], [address], [facility] - [employer] 05/20/2022 21:52:03 06/02/2022 text/html ROS as noted in the HPI This was a supervised home visit with vacuum technician Yan Choudhury. [facility] Nursing Assessment: Reason For Request: Follow up visit from when [facility] was out last week. Family states pt [...] .................... .................... .................... .................... .................... .................... . Motor Assembler Note From Yan Choudhury: pt presenting with a cough 6 - 8 weeks. Pt was previously visited by [facility] on 05/20 for the same symptoms. pt [...] urine sample which was positive for umang/pro/blo. [facility] contacted . [facility] prescribed a 7 day prednisone taper as well as cefpodoxime. [facility] vacuum technician gave pt 60mg of prednisone and 200mg of cefpodoxime on scene. pt educated on the importance of f/u with her oil well fishing tool operator and getting a chest x - ray due to the longevity of symptoms with little to no relief. [facility] also sent over a prescription for nebulized [...] .................... . Disposition: Fulfilled Marino Dick MD [address] [facility],[address], [place], [address], [facility], [facility] 06/02/2022 15:25:52 08/21/2022 text/html [facility] Nursing Assessment: Reason For Request: Pt experiencing CT scan on the august 08, pneumonia but no symptoms>Non emergent and was advised to call [facility] to get checked and to make sure everything is OK. Patient Reports: Cough, fever greater than 2 days Chief Complaints: Cough PMH: CHF, Diabetes, Heart Disease, Hypertension Allergies: No Known Comments: Son calling on behalf of member with request for [facility] visit for eval ?PNA s/p had CT 08/13. RX with antibiotics. PCP request follow up . Son states member is feeling better but cont with cough. Deny fever/chills. Verify member name/- .................... .................... .................... .................... .................... .................... .................... . Motor Assembler Note From Paige Jones: Community Motor Assembler Rodriguez Jones [facility] dispatched to a [facility] for an 82 yof for a follow up after pneumonia tx. Upon arrival, the pt was sitting in her recliner, awake and alert, AGUILERA X4, in no apparent distress. She was Senegalese speaking only; her son/tree loader meat on scene translated for her. He stated [...] were unable to see the PCP or Revenue Officer in the near future, and that the PCP wanted a follow up assessment on the pt's respiratory status. [facility] consulted and informed of assessment findings. The pt and her son were instructed to schedule and appt w/ the PCP and Revenue Officer and ensure that they followed up w/ them; they were informed that if they had any concerns in the meantime that they should feel free to call [employer]. Red flags discussed at length. .................... .................... .................... .................... .................... .................... .................... . Disposition: Fulfilled BOB GIANG MD [address] [place] [address],[address], [place], [phone] [employer] 08/21/2022 21:39:00 03/23/2023 text/html [facility] Nurse Triage Notes (Yani Engle): Reason For Request: tested positive for Covid on march 17, there is continued symptoms, unclear if retested>assessment and eval Chief Complaints: Shortness of Breath/Dyspnea PMH: CHF, Diabetes, Heart Disease, Hypertension Allergies: No Known Comments: Verified identity / address Spoke with [facility] Nurse. Member was put on molnupiravir. Member is currently having increased swallowing issues secondary to cough. Provider wanted a resp assessment. Member has been using albuterol, no history of Asthma .................... .................... .................... .................... .................... .................... .................... . Motor Assembler Note From Edgard Perez: Pt reports testing [...] in lower right rales, otherwise clear LS. [facility] to send rx for more duonebs and mucinex DM. Pt instructed to increase duonebs to q4-6h for the next few days and to seek emergent medical care for new or worsening sx, which are reviewed with her and her son. .................... .................... .................... .................... .................... .................... .................... . Disposition: Fulfilled SAMUEL HORN MD [address] [facility],[address], [place], [address], [employer] 03/23/2023 15:36:04 11/07/2024 text/html [facility] Nurse Triage Notes (Yani Engle): Reason For Request: PT's [facility]61 Patient Reports: Cough, fever greater than 2 days ; Cough Denies: Increased work of breathing/labored with or without fever Unable to speak in full sentences without distress Discoloration of skin -cyanosis Needs to sleep sitting up, can t catch breath Shortness of breath in setting of confusion Lower extremity swelling History of asthma, increased use of inhaler Sputum increase Shortness of breath with exertion Chief Complaints: Abnormal Lab Value PMH: Congestive Heart Failure, Coronary Artery Disease, Hypertension PMH Reviewed at 11/07/2024:16 Allergies Reviewed at 11/07/2024:16 Comments: 84 y.o female Son calling for hesham castro, concerned for BNP 961. Pulmonary told her to go to the ER and they redid the BNP , but they left due to wait time, Hesham castro wanted her to have IV lasix. Explained that we cant do the BNP but can check her lungs and POC . She also had an exray but they did not wait for the report She does take lasix. She does not have any lower edema She is o2 dependent, 1 LNC at rest, 2LNC when ambulating. She is sating 96-98%. She does not have any shortness of breath. She does have a cough, non productive. She does not have any fever or chills. She is refusing the ER at this time. Recommended calling a oil well fishing tool operator , to let them know I provided information on the mobile health provider response time and advised the patient and/or caregiver to monitor reported signs and symptoms. I discussed the warning signs of when to seek emergency care. Motor Assembler Organization Information for [employer] Legal Name: [facility] Transportation Address: [address] [place] [address], [place] [id number], Splitter Machine: Daryl Johnson MD CLIA No.: [id number] Motor Assembler POC Test Results from [facility] (15:56:17) pH: 7.459pH units pCO2: 40.2mmHg pO2: 34.9mmHg Na: 142mmol/L K: 3.3mmol/L iCa: 1.04mmol/L Cl: 103mmol/L TCO2: 27.1mEq/L Hct: 33% Hb: 11.1g/dL Glu: 116mg/dL Lac: 0.83mmol/L Cr: 1.13mg/dL BUN: 9mg/dL Ammol/L HCO3: 28.5mmol/L Attachments uploaded as part of this test result can be found under Documents section. .................... .................... .................... .................... .................... .................... .................... . Motor Assembler Note From [employer]: Pt chief complaint today of abnormal lab values. Pt is primary Senegalese speaking and has her son as an vp care management. Pt stated that approx 4 days prior to [facility] arrival at scene she had her lab values drawn and was noted of a BNP of 961. Pt was brought to her local emergency department due to this. Unfortunately due to extended wait times at the facility the pt was not seen. Pt has since been at home awaiting for her oil well fishing tool operator to communicate with her. Son of pt calls [facility] program today for another primary assessment, possible labs and treatment.pt today has no complaints of cp, sob, NVD, dizziness or changes in vision. NKDA. Nonneural focal exam, afebrile, vitals are note to be WNL for the baseline of the pt. Pt is non ambulatory throughout her visit with [facility]. Lungs or sent as clear bilaterally with no advantageous lung sounds noted. Benign abdominal assessment , no new and or worsening lower extremity edema noted. 23 gauge iv placed in right forearm while POC bloodwork is drawn. Low potassium level found on blood work,Pt is caox4 with a GCS of 15. [facility] Bob Giang consulted, Pt is informed of findings. Due to pt being stable and asymptomatic for any signs and symptoms currently. Pt is not instructed to report to her local emergency department, pt is given 40 mEq of oral potassium for Lo potassium values. Pt and son are informed to notify pcp at earliest convenience. Pt and son are educated on red flag S&S and told to call emergency services if any present. [facility] Lab Orders: BMP, serum or plasma: Performed [facility] Medication Orders: potassium chloride ER 20 mEq tablet,extended release: Performed .................... .................... .................... .................... .................... .................... .................... . [facility] Consulted: Bob Giang .................... .................... .................... .................... .................... .................... .................... . Disposition: Fulfilled BOB GIANG MD [address] [place] [address],[address], [place], [address], DULCE GANDHI 11/07/2024 19:22:18 OBGyn Episode No OBEpisode recorded.
--- OUTSIDE RECORDS SUMMARY | 2024-12-28 10:03 | XMS_ITS | Clinical Summary ---
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 - Continue Aspirin 81 mg [...] (07/05/2020 3:42 PM EDT): Patient presented to [facility] on 07/02 with right lower extremity [...] have buckled subsequently. She was evaluated at [facility] and labs were grossly unremarkable but MRI [...] the L3-L4 level. Patient was transferred to [facility] for Neurosurgery consult - Continues to endorse [...] 100 mg BID - Due to elevated [id number] score, anticoagulate with rivaroxaban - [id number] Stroke Risk (5-year stroke rate based on [...] Screening 02/17/2024 Depression Screening and Follow-Up 02/17/2024 Fall Risk Screening 02/17/2024 Health Care Proxy Review 02/17/2024 Social Drivers of Health Annual Screening 02/17/2024 COVID-19 Vaccine ( season) 2024 Influenza Vaccine (#1) 2024 Hepatitis B Vaccines Aged Out No long er eligible based on patient's age to complete this topic Procedures * Due to [facility] law, this organization might not be sharing negative HIV tests. Procedure Name Priority Date/Time Associated Diagnosis Comments COMPREHENSIVE METABOLIC PANEL Timed 07/06/2020 5:21 AM EDT HEMOGLOBIN A1C Routine 07/04/2020 6:47 AM EDT from Last 3 Months or Most Recently Relevant to Health Maintenance Results * Due to [facility] law, this organization might not be sharing negative HIV tests. * (ABNORMAL) Comprehensive Metabolic Panel (07/06/2020 5:21 AM EDT) NA 140 135 - 145 mmol/L 07/06/2020 6:02 AM EDT [facility] K 4.0 3.5 - 5.3 mmol/L 07/06/2020 6:02 AM EDT [facility] Cl 104 97 - 110 mmol/L 07/06/2020 6:02 AM EDT [facility] CO2 33(H) 24 - 32 mmol/L 07/06/2020 6:02 AM EDT [facility] Anion Gap 3(L) 5 - 15 07/06/2020 6:02 AM EDT [facility] Glucose 87 70 - 99 mg/dL 07/06/2020 6:02 AM EDT [facility] Creatinine 1.01 0.50 - 1.20 mg/dL 07/06/2020 6:02 AM EDT [facility] eGFR Non- 54(L) >=90 mL/min/BS A 07/06/2020 6:02 AM T [facility] eGFR 62(L) >=90 mL/min/BS A 07/06/2020 6:02 AM T [facility] Comment: Units = mL/min/1.73 m2 Glomerular Filtration Rate (GFR) is estimated based on the CKD-EPI Creatinine Equation (2009). Stage Description GFR 1 Normal >=90 mL/min/BSA 2 Mildly decreased GFR 60-89 mL/min/BSA 3 Moderately decreased GFR 30-59 mL/min/BSA 4 Severely decreased GFR 15-29 mL/min/BSA 5 Kidney Failure <15 mL/min/BSA Calcium 8.9 8.7 - 10.7 mg/dL 07/06/2020 6:02 AM T [facility] Total Protein 6.2 6.0 - 8.0 g/dL 07/06/2020 6:02 AM T [facility] Albumin 3.5 3.5 - 4.8 g/dL 07/06/2020 6:02 AM [facility] Bilirubin, Total 0.6 0.3 - 1.2 mg/dL 07/06/2020 6:02 AM T [facility] Alkaline Phosphatase 88 30 - 115 U/L 07/06/2020 6:02 AM T [facility] AST 14 10 - 40 U/L 07/06/2020 6:02 AM [facility] ALT 9(L) 10 - 40 U/L 07/06/2020 6:02 AM [facility] BUN 24(H) 7 - 23 mg/dL 07/06/2020 6:02 AM [facility] Blood Structure of peripheral vein / Unknown Venipuncture / Unknown 07/06/2020 5:21 AM EDT 07/06/2020 5:28 AM EDT Mell Damon MD LAB BLOOD ORDERABLES Final Resul t Performing Organization Address [facility]/ZIP Co de Phone Number [facility] [address] [place] [address], * (ABNORMAL) Hemoglobin A1c (07/04/2020 6:47 AM EDT) Hemoglobin A1C 7.0(H) <5.7 % of total Hgb 07/04/2020 1:43 PM EDT [email or web address] Comment: For someone without known diabetes, a [...] (MG/DL) 154 (calc) 07/04/2020 1:43 PM EDT [email or web address] eAG (MMOL/L) 8.5 (calc) 07/04/2020 1:43 PM EDT [email or web address] Blood Structure of peripheral vein / Unknown Venipuncture / Unknown 07/04/2020 6:47 AM EDT 07/04/2020 7:05 AM EDT Narrative [facility] - 07/04/2020 1:43 PM EDT [facility] Received Date: Mell Damon MD LAB BLOOD ORDERABLES Final Resul t Performing Organization Address City/[facility]/ZIP Co de Phone Number [facility] [address], [place] [address], [place] [phone] [facility] [address], [place] [address], [place] [phone] from Last 3 Months or Most Recently Relevant to Health Maintenance Insurance [facility] [employer] JOSE VALENZUELA [id number] Advance Directives * DNR/DNI (Latest Code Status on File) Date Activated Date Inactivated Comments 07/03/2020 6:45 PM 07/06/2020 3:22 PM * Presumed Full Code Date Activated Date Inactivated Comments 07/03/2020 3:06 PM 07/03/2020 6:45 PM Care Teams Public Health Engineer Relationship Specialty Start Date End Date Geno Shields [address] [place] [address] PCP - General 07/03/20
== END 2024-12-28 09:54 | disposition home or self-care (01) ==
LOC: HO.HPSW 09:14
PROVIDERS: PCP Nurse Practitioner Primary Care; Visit Provider Nurse Practitioner Family
DX: J96.11 Chronic respiratory failure with hypoxia (principal); I27.20 Pulmonary hypertension, unspecified; J69.0 Pneumonitis due to inhalation of food and vomit; J84.9 Interstitial pulmonary disease, unspecified; R76.89 Other specified abnormal immunological findings in serum
CPT/HCPCS: 99214; G2211

== ENCOUNTER → 2024-12-28 09:13 | Outpatient (BNVA) | payer OTHER, SELFPAY | PROVIDERS: PCP Nurse Practitioner Primary Care; Visit Provider Nurse Practitioner Family | DX: Z71.2 Person consulting for explanation of examination or test findings (principal); J84.9 Interstitial pulmonary disease, unspecified; Z01.818 Encounter for other preprocedural examination; I27.20 Pulmonary hypertension, unspecified; J69.0 Pneumonitis due to inhalation of food and vomit | CPT/HCPCS: 99212 ==

== ENCOUNTER 2025-02-08 08:42 | Outpatient (AMB) | payer OTHER, SELFPAY ==
[2025-02-08 08:45] VITALS: BP 120/60; PULSE 58; O2SAT 97; BMI 28.9
--- NOTE | 2025-02-08 08:45 | MHC.OFFVIS ---
Vital Signs 02/08/25 08:45 Height 4 ft 11 in Weight 143 lb 2 oz BMI 28.9 BP 120/60 Blood Pressure Location Lt brachial Position Sitting Pulse 58 Pulse Source Pulse Oximeter Pulse Oximetry (%) 97 Oxygen Delivery Method Room Air Intake Visit Reasons: abnormal lab Result/ [employer] internal ref Intake Note: Patient is a new patient, internally referred by Avelina Henley for abnormal labs. Professional Skateboarder Required: No Information Interpreted: non-clinical & clinical Accompanied by: Son Allergies No Known Allergies (No Known Allergies*) Allergy (Unverified 02/08/25 08:54) HPI Comments Details: 84 year old with a PMH OF ILD, afib on xarelto, CKD stable diabetes CAD s/p PCI, hypothyroidism presenting to me for autoimmune evalution. Patient is accompanied by her son, he states that since 2018 she had pneumonia and was desaturating. Since then she has constant cough, and has had colds quite often. Shes on chronic oxygen 3L for the past 3 years. Her son says that she lived in [facility] , intermittently staying in [place]. She hasn't been around animals. She does state there was a goat in the house when she was little, and the goat was there for years. ROS:no photosensitivity, no skin rashes, she has alot of dry skin, some dry skin and dry mouth.she also has dry eyes no blood clot, no miscarriage, no raynauds, does have numbness in hands joint pain in hands and fingers. no active synovitis noted. stiff in the morning for 1 hour On labs, she has a positive GAYLE 1:160 nuclear homogeneous, mildly positive RF 24, negative CCP, negative scleroderma 70 antibody. Centromere antibody not done. CT chest showed ground glass opacities and her PFTS were consisitent ith ILD, given decreased DLCO and restircitve defect Echocardiogram does show - Moderately increased right ventricular cavity size. There is mildly decreased right ventricular systolic function. - The left atrium is severely dilated. The right atrium is severely dilated. - The right ventricular systolic pressure is 106 mmHg. Significantly elevated right atrial pressure. Severe pulmonary hypertension is present. - There is a trivial pericardial effusion. FH:no autoimmune disease PHYSICAL EXAM General: Comfortable CVS: RRR Respiratory: Diminished breath sounds bilaterally Skin: No lesions seen MSK: Patient is able to make a fist bilaterally. There is no active synovitis noted in any of the joints. She has nontender MCPs PIPs. She has good range of motion of the shoulders. She has limited range of motion of the hips. She has crepitus noted on flexion-extension of the knees bilaterally. PFSH Medical History Diabetes Heart attack Kidney disease Surgical History H/O: hysterectomy Social History Patient Tobacco Use Status: Never used Tobacco Physical Exam Vital Signs: Last Vital Signs Pulse 58 02/08/25 08:45 BP 120/60 02/08/25 08:45 Pulse Ox 97 02/08/25 08:45 Oxygen Delivery Method Room Air 02/08/25 08:45 BMI result Body Mass Index 28.9 Assessment & Plan Assessment & Plan (1) Positive antinuclear antibody: Code(s): R76.8 - Other specified abnormal immunological findings in serum Category: Medical (2) Polyarthralgia: Code(s): M25.50 - Pain in unspecified joint Category: Medical (3) Bilateral hand pain: Code(s): M79.641 - Pain in right hand; M79.642 - Pain in left hand Category: Medical (4) Interstitial lung disease: Code(s): J84.9 - Interstitial pulmonary disease, unspecified Category: Medical (5) Pulmonary hypertension: Code(s): I27.20 - Pulmonary hypertension, unspecified Category: Medical Plan 84 year old with a PMH OF ILD, afib on xarelto, CKD stable diabetes CAD s/p PCI, hypothyroidism presenting to me for autoimmune evaluation.On labs, she has a positive GAYLE 1:160 nuclear homogeneous, mildly positive RF 24, negative CCP, negative scleroderma 70 antibody. Centromere antibody not done. On chest CT shows ground-glass opacities, PFTs are consistent with ILD, echocardiogram is showing pulmonary hypertension. However, on review of systems and physical exam patient does not show any signs of rheumatoid arthritis or inflammatory arthritis. Patient also does not fulfill criteria for SLE, she does not have any clinical features of SLE, scleroderma limited/systemic, or other connective tissue diseases. It is very rare that autoimmune connective tissue disease and inflammatory arthritis would target the lung in isolation without any systemic involvement, her history and her physical exam do not show any stigmata of inflammatory arthritis, rheumatoid arthritis, lupus, scleroderma or other connective tissue disease. I will today complete workup including GAYLE subsets, C3-C4, urine studies, hand x-rays I will follow up with the patient in 3 weeks to discuss the results and further management Orders: Orders DNA Double Stranded-Crithidia Today R76.0 - Raised antibody titer Sm Sm/SONG PLUGGER Antibodies Today R76.0 - Raised antibody titer UA ClnCatch+Micro w/rflx Cult Today R76.0 - Raised antibody titer XR Hand [place] 2V Today M25.50 - Pain in unspecified joint, M79.641 - Pain in right hand, M79.642 - Pain in left hand, R76.8 - Other specified abnormal immunological findings in serum Erythrocyte Sedimentation Rate Today R76.0 - Raised antibody titer Complement C3 Today R76.0 - Raised antibody titer Complement C4 Today R76.0 - Raised antibody titer Complete Blood Count Auto Diff Today R76.0 - Raised antibody titer Aspartate Amino Transferase Today R76.0 - Raised antibody titer Creatinine Today R76.0 - Raised antibody titer Scleroderma 12 Panel Today R76.0 - Raised antibody titer Scleroderma 70 Antibody Today R76.0 - Raised antibody titer Anti-Centromere B Antibodies Today R76.0 - Raised antibody titer Protein Creatinine Ratio, Ur Today R76.0 - Raised antibody titer C Reactive Protein Today R76.0 - Raised antibody titer Alanine Aminotransferase Today R76.0 - Raised antibody titer Coding Level of Care Code New Pt Level 4 (44920) Diagnoses Positive antinuclear antibody R76.8 Polyarthralgia M25.50 Bilateral hand pain M79.641; M79.642 Interstitial lung disease J84.9 Pulmonary hypertension I27.20
--- OUTSIDE RECORDS SUMMARY | 2025-02-08 08:47 | XMS_ITS | Data Portability ---
Author Organization [place] - [facility], [facility] Address [address] [place] [id number] Care Team Providers Care Layboy Operator Name Role Phone HIM CCA OTHER [facility] Primary Care Provide r Assessment Encounter Date Assessment Date Assessment LastModified by Organization Details LastModified Time 06/02/2022 06/02/2022 I have reviewed and agree with the assessment and plan as documented by the automatic centrifugal station operator. I provided real time medical direction for this encounter and was immediately available to provide additional phone based assistance as needed. History as noted by automatic centrifugal station operator. Pt with history of CHF, COPD, HTN, DM. She and her son report about 6 weeks of a cough productive of clear sputum. [facility] with [facility]ith[facility] [...] make a follow up appointment with her disability insurance claim examiner for repeat evaluation and management of her cough. 2. UTI. Pt with about 2 weeks of dysuria and history of UTI in the past. Son though pt seemed mildly confused yesterday, but today she appears well. Urine dip is c/w UTI today. Urine culture obtained and will be sent to [facility] lab. 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 Precautions reviewed w patient and family. [email or web address] Not available 11/07/2024 19:22:09 Plan of Treatment Reminders Order Date Submit Date Provider Last Modified By Organization Details Last Modified Time Details Appointments None recorded. Lab BMP, serum or plasma [facility]24 [facility] [address] [facility], [place], [address] 19:07:59 culture, urine 2022 023 [facility] (Centralized Electronic Ordering - All Locations), Patient Can Go To The Location Of Their Choice, [id number] 3 10:37:48 urinalysis, dipstick 2022 023 [facility], [address] [place] [address], [id number] 3 15:02:07 Referral None recorded. Procedures None recorded. Surgeries None recorded. Imaging None recorded. Medication Orders potassium chloride ER 20 mEq tablet,exte nded release 2024 025 [email or web address] 7 [place], [place] - [id number], [address], [place], [address], 5 16:07:58 ipratropium 0.5 mg-albutero l 3 mg (2.5 mg base)/3 mL nebulizatio n soln 2023 024 [facility] [id number], [address], [place], [address], 4 15:52:52 Mucinex 600 mg tablet, extended release 2023 024 [place] - [id number], [address], [place], [address], 4 12:15:44 cefpodoxime [address] [facility] [id number], [address], [place], [address], 3 15:02:07 cefpodoxime 200 mg tablet 2022 023 [place] [id number], [address], [place], [address], 3 15:11:28 prednisone [address] [facility] [id number], [address], [place], [address], 3 15:02:07 prednisone 20 mg tablet 2022 023 [facility], [place] - [id number], [address], [place], [address], 3 15:11:28 albuterol sulfate 2.5 mg/3 mL (0.083 %) solution for nebulizatio n 2022 023 [facility], [place] - [id number], [address], [place], [address], 3 15:11:29 azithromyci n 250 mg tablet 2022 023 [facility], [place] - [id number], [address], [place], [address], 3 16:31:42 prednisone 20 mg tablet 2022 023 [facility], [place] - [id number], [address], [place], [address], 3 16:31:41 Patient TargetsNo targets recorded. Patient [...] Go To The Location Of Their Choice, [id number] 06/05/2022 10:37:48 06/03/1906/02/2022 urina lysis , dipst ick Leukocytes positi ve Not Available [facility] ed [address] [place] [address], [id number] 06/02/2022 14:42:58 06/03/1906/02/2022 urina lysis , dipst ick Nitrite negati ve Not Available [facility] ed [address] [place] [address], [address] [place] [address] 06/02/2022 14:42:58 06/03/19 23 06/02/2022 urina lysis , dipst ick Protein positi ve Not Available [address], [address] [place] [address] 06/02/2022 14:42:58 06/03/1906/02/2022 urina lysis , dipst ick Blood positi ve Not Available [address], [address] 06/02/2022 14:42:58 Result Notes None recorded. Medical [...] Available No t Available Comfort EZ Pen [place] 31 gauge x 3/16 USE TO INJECT insulin DAILY DIRECTED active Not Available Not Available No t Available Xarelto 15 mg tablet TAKE 1 TABLET BY MOUTH EVERY EVENING active Not Available Not Available No t Available [facility] spacer USE WITH symbicort AND albuterol DIRECTED active Not Available Not Available Not Available Dexcom G7 Bar Helper USE TO CHECK BLOOD SUGAR 4 (FOUR) TIMES DAILY active Not Available Not Available Not Available Dexcom G7 Sensor device CHECK BLOOD SUGAR 4 (FOUR) TIMES DAILY. replace sensor EVERY 10 DAYS active Not Available Not Available No t Available Vitals Date Recorded Heart rate Body temperature Respiratory rate Oxygen saturation Inhaled oxygen flow rate Oxygen saturation Inhaled oxygen flow rate Body height Body weight Systolic And Diastolic Provider Name and Address Organization Details Last Updated DateTime 4 86 /min 97.9 [degF] 18 /min 91 % 2 L/min 97 % 2 L/min 149.86 cm 47587.7 2 g 149/88 mm[Hg] Not Available [facility] - production 4 15:05:58 Date Recorded Respiratory rate Body weight Oxygen saturation Heart rate Body temperature Body temperature Oxygen saturation Body weight Respiratory rate Heart rate Systolic And Diastolic Systolic And Diastolic Provider Name and Address Organization Details Last Updated DateTime 3 18 /min 07167.1 28 g 97 % 77 /min 97.6 [degF] 97.6 [degF] 97 % 74268.1 28 g 18 /min 77 /min 143/70 mm[Hg] 143/70 mm[Hg] Not Available [facility] - production 3 16:49:03 Date Recorded Body temperature Oxygen saturation Inhaled oxygen flow rate Respiratory rate Body weight Heart rate Body temperature Heart rate Body weight Respiratory rate Oxygen saturation Inhaled oxygen flow rate Provider Name and Address Organization Details Last Updated DateTime 3 96.8 [degF] 99 % 1 L/min 18 /min 65898.3 52 g 78 /min 96.8 [degF] 78 /min 64887.3 52 g 18 /min 99 % 1 L/min Not Available [facility] - production 3 15:10:43 Date Recorded Systolic And Diastolic Systolic And Diastolic Provider Name and Address Organization Details Last Updated DateTime 06/02/2022 145/59 mm[Hg] 145/59 mm[Hg] Not Available [facility] - production 06/02/2022 15:10:43 Date Recorded Oxygen saturation Inhaled oxygen flow rate Respiratory rate Heart rate Body temperature Systolic And Diastolic Provider Name and Address Organization Details Last Updated DateTime 3 99 % 1 L/min 18 /min 73 /min 98.7 [degF] 156/79 mm[Hg] Not Available [facility] - production 3 18:02:22 Date Recorded Body temperature Body weight Heart rate Body height Oxygen saturation Inhaled oxygen flow rate Respiratory rate Systolic And Diastolic Provider Name and Address Organization Details Last Updated DateTime 5 97.8 [degF] 68279.2 48 g 75 /min 149.86 cm 93 % 1 L/min 17 /min 154/68 mm[Hg] Not Available [facility] - production 5 16:04:33 Social History None [...] 119 Benjamin Strauss MD Main - [facility] [address] [place] [id number] 04/05/2021 18:15:56 09/03/2021 12:06:43 5430 Katharina Hoyt MD Main - [facility] [address] [place] [phone] 01/03/2022 13:59:39 01/06/2022 13:00:38 Acute exacerbation of chronic obstructive pulmonary disease 162371784 J44.1 w/ hypoxia/ respirator y distress/f ailure - sat improved to 90 on duoneb- now wheezing audible- able to get EKG which showed possible ischemia - 911 ALS arrived before medic could give solumedrol or check BS- report called to provider at [facility] 7270 Marino Dick MD Main - [facility] [address] [place] [phone] 03/11/2022 13:34:38 03/13/2022 10:30:35 Viral upper respiratory tract infection 575055464 J06.9 7523 Joseph Damon MD Main - [facility] [address] [place] [phone] 03/21/2022 21:46:59 03/24/2022 12:27:32 History of urinary tract infection 0298125825 107 Z87.440 This 81-year-ol d female has a history of UTIs and her PCP wanted her to be checked for a UTI today. She has no symptoms and her U/A was normal. I see no evidence of a UTI, so I did not recommend any specific treatment. The patient agreed with this plan. 9121 Cher Leyva MD Main - [facility] [address] [place] [phone] 05/20/2022 16:07:03 05/22/2022 10:26:44 Cough 23060813 R05.9 cough x3 weeks, exam notable for diffuse wheezing with a question of R basilar rales. COVID, flu negative. VSS. Suspect COPD exacerbati on +/- atypical pna. Will trial 5d pred and azithromyc in. Educated on warning signs/sx. 9507 Marino Dick MD Main - [facility] [address] [place] [phone] 06/02/2022 14:32:26 06/03/2022 11:46:46 Chronic cough 38523061 R05.3 Urinary symptoms 5937537 08 R39.9 47774 BOB GIANG MD Main - [facility] [address] [place] [phone] 08/21/2022 18:02:20 08/21/2022 23:29:35 Post-discharge follow-up [id number] Z09 [id number] SAMUEL HORN MD Main - [facility] [address] [place] [phone] 03/23/2023 15:05:46 03/24/2023 10:19:16 Chronic obstructive pulmonary disease 56083543 J44.9 [id number] BOB GIANG MD Main-inst [facility] Medical [address] [phone] 11/07/2024 16:04:23 11/08/2024 00:31:28 Hypokalemia 49108624 E87.6 9791 Health Concerns Section Related Observation LastModified by Organization Detai ls LastModified Time None Recorded Concern Status LastModified by Organization Details LastModified Time None Recorded Advance Directives Directive None Recorded Payers Insurance Date Sequence Insurance Name Policy Number Policy Casey Covered Member ID Casey Member ID Guarantor Name 08/21/2022 1 [employer] [facility] [employer] [facility] - DOS PRIOR TO 2022 - DUAL ELIGIBLE (MEDICARE REPLACEMENT/ADV ANTAGE - HMO) Ratna Smith [id number] Ratna Smith 11/07/2024 1 [employer] [facility] [facility] [employer] - DOS ON OR AFTER 2022 - DUAL ELIGIBLE - [facility] OPTIONS AND ONE CARE (MEDICARE REPLACEMENT/ADV ANTAGE - HMO) Ratna Smith [id number] Ratna Smith Notes Date Note Type Note [...] .................... .................... .................... .................... .................... .................... . Hall Cleaner Note From Hao Ingram: pt presenting with a cough x3 weeks. pt denies n/v/d/f/headache/cp/ sob. pt was prescribed benzonatate with no relief, pt had been taking robitussin dm with slight relief. lung sounds were clear in all tolliver. pt's cough has been productive with no color. flu/covid/strep test were all negative. [facility] contacted and requested a duoneb treatment then reassessment of the pt's lung sounds. after the duoneb, pt had diffuse wheezing throughout and rales in the lower left lobe. [facility] was informed of this and prescribed pt azithromyacin and prednisone. [facility] automatic centrifugal station operator gave pt first dose 500mg of azithro and 40mg of prednisone PO. pt educated on s/s warranting a 911 call/trip to the hospital. pt informed to f/u in a few days if symptoms persist. .................... .................... .................... .................... .................... .................... .................... . Disposition: Quynh Cher Leyva MD [address] [facility],[address], [place], [address], [facility] 05/20/2022 21:52:03 06/02/2022 text/html ROS as noted in the HPI This was a supervised home visit with automatic centrifugal station operator Yan Choudhury. CRC Nursing Assessment: Reason For Request: [facility]. Family [...] .................... .................... .................... .................... .................... .................... . Hall Cleaner Note From aYn Choudhury: pt presenting with a cough 6 - 8 weeks. [facility] the same [facility]. [...] urine sample which was positive for umang/pro/blo. [facility] contacted . [facility] prescribed a 7 day prednisone taper as well as cefpodoxime. [facility] automatic centrifugal station operator gave pt 60mg of prednisone and 200mg of cefpodoxime on scene. pt educated on the importance of f/u with her disability insurance claim examiner and getting a chest x - ray due to the longevity of symptoms with little to no relief. [facility] also sent over a prescription for nebulized [...] .................... . Disposition: Fulfilled Marino Dick MD [address] [place] [address],[address], [place], [address], [address] [employer] 06/02/2022 15:25:52 08/21/2022 text/html CRC Nursing Assessment: Reason For Request: Pt experiencing CT scan on the august 08, pneumonia but no symptoms>Non emergent and was advised to call [employer] to get checked and to make sure everything is OK. Patient Reports: Cough, fever greater than 2 days Chief Complaints: Cough PMH: CHF, Diabetes, Heart Disease, Hypertension Allergies: No Known Comments: Son calling on behalf of member with request for [facility] visit for eval ?PNA s/p had CT 08/13. RX with antibiotics. PCP request follow up . Son states member is feeling better but cont with cough. Deny fever/chills. Verify member name/- .................... .................... .................... .................... .................... .................... .................... . Hall Cleaner Note From Paige Jones: Community Hall Cleaner Rodriguez Jones [facility] dispatched to a [facility] for an 82 yof for a follow up after pneumonia tx. Upon arrival, the pt was sitting in her recliner, awake and alert, AGUILERA X4, in no apparent distress. She was Lithuanian speaking only; her son/gis software developer on scene translated for her. He stated [...] were unable to see the PCP or [employer] in the near future, and that the PCP wanted a follow up assessment on the pt's respiratory status. [facility] consulted and informed of assessment findings. The pt and her son were instructed to schedule and appt w/ the PCP and [employer] and ensure that they followed up w/ them; they were informed that if they had any concerns in the meantime that they should feel free to call [facility]. Red flags discussed at length. .................... .................... .................... .................... .................... .................... .................... . Disposition: Fulfilled BOB GIANG MD [address] [place] [address],[address], [place], [address], [employer] 08/21/2022 21:39:00 03/23/2023 text/html CRC Nurse Triage Notes (Yani Engle): Reason For Request: tested positive for Covid on march 17, there is continued symptoms, unclear if retested>assessment and eval Chief Complaints: Shortness of Breath/Dyspnea PMH: CHF, Diabetes, Heart Disease, Hypertension Allergies: No Known Comments: Verified identity / address Spoke with [facility] Nurse. Member was put on molnupiravir. Member is currently having increased swallowing issues secondary to cough. Provider wanted a resp assessment. Member has been using albuterol, no history of Asthma .................... .................... .................... .................... .................... .................... .................... . Hall Cleaner Note From Edgard Perez: Pt reports testing [...] in lower right rales, otherwise clear LS. [facility] to send rx for more duonebs and mucinex DM. Pt instructed to increase duonebs to q4-6h for the next few days and to seek emergent medical care for new or worsening sx, which are reviewed with her and her son. .................... .................... .................... .................... .................... .................... .................... . Disposition: Fulfilled SAMUEL HORN MD [address] [place] [address],[address], [place], [address], [employer] 03/23/2023 15:36:04 11/07/2024 text/html CRC Nurse Triage Notes (Yani Engle): Reason For Request: PT's son reporting elevated pressure on the lungsBnp shows 961 Patient Reports: Cough, fever greater [...] Coronary Artery Disease, Hypertension PMH Reviewed at 11/07/2024 - :16 Allergies Reviewed at 11/07/2024 - 11:16 Comments: 84 y.o female Son calling for [...] ER at this time. Recommended calling a disability insurance claim examiner , to let them know I provided information on the mobile health provider response time and advised the patient and/or caregiver to monitor reported signs and symptoms. I discussed the warning signs of when to seek emergency care. Hall Cleaner Organization Information for [facility] [employer] [facility] Legal Name: [facility] Address: [address] [place] [address], [place] [address], Shrimp Packer: Daryl Johnson MD CLIA No.: [id number] Hall Cleaner POC Test Results from [facility] (15:56:17) pH: 7.459pH units pCO2: 40.2mmHg pO2: 34.9mmHg Na: 142mmol/L K: 3.3mmol/L iCa: 1.04mmol/L Cl: 103mmol/L TCO2: 27.1mEq/L Hct: 33% Hb: 11.1g/dL Glu: 116mg/dL Lac: 0.83mmol/L Cr: 1.13mg/dL BUN: 9mg/dL Ammol/L HCO3: 28.5mmol/L Attachments uploaded as part of this test result can be found under Documents section. .................... .................... .................... .................... .................... .................... .................... . Hall Cleaner Note From [facility]: Pt chief complaint today of abnormal lab values. Pt is primary Lithuanian speaking and has her son as an educational sign language interpreter. Pt stated that approx 4 days prior to [facility] arrival at scene she had her lab values drawn and was noted of a BNP of 961. Pt was brought to her local emergency department due to this. Unfortunately due to extended wait times at the facility the pt was not seen. Pt has since been at home awaiting for her disability insurance claim examiner to communicate with her. Son of pt calls [facility] program today for another primary assessment, possible labs and treatment.pt today has no complaints of cp, sob, NVD, dizziness or changes in vision. NKDA. Nonneural focal exam, afebrile, vitals are note to be WNL for the baseline of the pt. Pt is non ambulatory throughout her visit with [facility]. Lungs or sent as clear bilaterally with no advantageous lung sounds noted. Benign abdominal assessment , no new and or worsening lower extremity edema noted. 23 gauge iv placed in right forearm while POC bloodwork is drawn. Low potassium level found on blood work,Pt is caox4 with a GCS of 15. [facility] Bob Giang consulted, Pt is informed of [...] to call emergency services if any present. [facility] Lab Orders: BMP, serum or plasma: Performed [facility] Medication Orders: potassium chloride ER 20 mEq tablet,extended release: Performed .................... .................... .................... .................... .................... .................... .................... . [facility] Consulted: Bob Giang .................... .................... .................... .................... .................... .................... .................... . Disposition: Fulfilled BOB GIANG MD [address] [place] [address],[address], [place], [phone], DULCE GANDHI 11/07/2024 19:22:18 OBGyn Episode No OBEpisode recorded.
--- OUTSIDE RECORDS SUMMARY | 2025-02-08 08:48 | XMS_ITS | Clinical Summary ---
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 Patient does not follow with a map mounter at present. - Continue Aspirin 81 mg [...] (07/05/2020 3:42 PM EDT): Patient presented to [facility] on 07/[facility] with right lower extremity weakness [...] have buckled subsequently. She was evaluated at [place] and labs were grossly unremarkable but MRI [...] 100 mg BID - Due to elevated [id number] score, anticoagulate with rivaroxaban - [id number] Stroke Risk (5-year stroke rate based on [...] Annual Screening 02/17/2024 Influenza Vaccine (#1) 2024 COVID-19 Vaccine ( season) 2024 Hepatitis B Vaccines Aged Out No long er eligible based on patient's age to complete this topic Procedures * Due to [facility] law, this organization might not be sharing negative HIV tests. Procedure Name Priority Date/Time Associated Diagnosis Comments COMPREHENSIVE METABOLIC PANEL Timed 07/06/2020 5:21 AM EDT HEMOGLOBIN A1C Routine 07/04/2020 6:47 AM EDT from Last 3 Months or Most Recently Relevant to Health Maintenance Results * Due to [facility] law, this organization might not be sharing negative HIV tests. * (ABNORMAL) Comprehensive Metabolic Panel (07/06/2020 5:21 AM EDT) NA 140 135 - 145 mmol/L 07/06/2020 6:02 AM EDT [facility] K 4.0 3.5 - 5.3 mmol/L 07/06/2020 6:02 AM EDT [facility] Cl 104 97 - 110 mmol/L 07/06/2020 6:02 AM EDT [facility] CO2 33(H) 24 - 32 mmol/L 07/06/2020 6:02 AM EDT [facility] Anion Gap 3(L) 5 - 15 07/06/2020 6:02 AM EDT [facility] Glucose 87 70 - 99 mg/dL 07/06/2020 6:02 AM EDT [facility] Creatinine 1.01 0.50 - 1.20 mg/dL 07/06/2020 6:02 AM EDT [facility] eGFR Non- 54(L) >=90 mL/min/BS A 07/06/2020 6:02 AM T [facility] eGFR 62(L) >=90 mL/min/BS A 07/06/2020 6:02 AM T [facility] Comment: Units = mL/min/1.73 m2 Glomerular Filtration Rate (GFR) is estimated based on the CKD-EPI Creatinine Equation (2009). Stage Description GFR 1 Normal >=90 mL/min/BSA 2 Mildly decreased GFR 60-89 mL/min/BSA 3 Moderately decreased GFR 30-59 mL/min/BSA 4 Severely decreased GFR 15-29 mL/min/BSA 5 Kidney Failure <15 mL/min/BSA Calcium 8.9 8.7 - 10.7 mg/dL 07/06/2020 6:02 AM T [facility] Total Protein 6.2 6.0 - 8.0 g/dL 07/06/2020 6:02 AM T [facility] Albumin 3.5 3.5 - 4.8 g/dL 07/06/2020 6:02 AM [facility] Bilirubin, Total 0.6 0.3 - 1.2 mg/dL 07/06/2020 6:02 AM T [facility] Alkaline Phosphatase 88 30 - 115 U/L 07/06/2020 6:02 AM T [facility] AST 14 10 - 40 U/L 07/06/2020 6:02 AM [facility] ALT 9(L) 10 - 40 U/L 07/06/2020 6:02 AM [facility] BUN 24(H) 7 - 23 mg/dL 07/06/2020 6:02 AM [facility] Blood Structure of peripheral vein / Unknown Venipuncture / Unknown 07/06/2020 5:21 AM EDT 07/06/2020 5:28 AM EDT Mell Damon MD LAB BLOOD ORDERABLES Final Resul t Performing Organization Address [facility]/ZIP Co de Phone Number [facility] [address] [place] [address], * (ABNORMAL) Hemoglobin A1c (07/04/2020 6:47 AM EDT) Hemoglobin A1C 7.0(H) <5.7 % of total Hgb 07/04/2020 1:43 PM EDT [employer] Comment: For someone without known diabetes, a [...] (MG/DL) 154 (calc) 07/04/2020 1:43 PM EDT [employer] eAG (MMOL/L) 8.5 (calc) 07/04/2020 1:43 PM EDT [employer] Blood Structure of peripheral vein / Unknown Venipuncture / Unknown 07/04/2020 6:47 AM EDT 07/04/2020 7:05 AM EDT Narrative [facility] - 07/04/2020 1:43 PM EDT [facility] Received Date: Mell Damon MD LAB BLOOD ORDERABLES Final Resul t Performing Organization Address City/[facility]/ZIP Co de Phone Number [facility] [address], [place] [address], [place] [phone] [employer] [facility] [address], [place] [address], [place] [phone] from Last 3 Months or Most Recently Relevant to Health Maintenance Insurance [facility] [employer] JOSE VALENZUELA [id number] Advance Directives * DNR/DNI (Latest Code Status on File) Date Activated Date Inactivated Comments 07/03/2020 6:45 PM 07/06/2020 3:22 PM * Presumed Full Code Date Activated Date Inactivated Comments 07/03/2020 3:06 PM 07/03/2020 6:45 PM Care Teams Supervisor Plate Pasting Relationship Specialty Start Date End Date Geno Shields [address] [place] [address] PCP - General 07/03/20
== END 2025-02-08 09:42 | disposition home or self-care (01) ==
LOC: HO.RHES 08:43
PROVIDERS: PCP Nurse Practitioner Primary Care; Visit Provider Student in an Organized Health Care Education/Training Program
DX: R76.0 Raised antibody titer (principal); M25.50 Pain in unspecified joint; M79.641 Pain in right hand; M79.642 Pain in left hand; J84.9 Interstitial pulmonary disease, unspecified; I27.20 Pulmonary hypertension, unspecified
CPT/HCPCS: 99204

== ENCOUNTER 2025-02-08 08:42 | Outpatient (REF) | payer OTHER, SELFPAY ==
[2025-02-08 14:37] LABS: MANUAL DIFF FLAG NO
[2025-02-08 14:41] LABS: Hematocrit 36.7 % (37.0-47.0); Hemoglobin 11.3 g/dl (12.0-16.0); Imm Gran Abs Auto 0.03 X10*3/uL (0.00-0.03); Imm Gran Pct Auto 0.4 % (0.0-0.4); Lymphocytes Absolute Auto 1.4 X10*3/uL (1.2-4.9); Mean Corpuscular HGB Conc 30.8 g/dl (31.0-35.0); Mean Corpuscular Hemoglobin 26.7 pg (27.0-33.0); Mean Corpuscular Volume 86.8 fL (80.0-98.0); NRBC Abs Auto 0.000 X10*3/uL (0.0-0.012); NRBC Pct Auto 0.0 /100WBC (0.0-0.2); Platelet Count 196 X10*3/uL (160-400); Red Blood Count 4.23 X10*6/uL (4.20-5.50); White Blood Count 8.4 X10*3/uL (4.8-10.8)
[2025-02-08 15:34] LABS: Alanine Aminotransferase 9 U/L (0-31); Aspartate Amino Transferase 31 U/L (5-31); Estimated Glomerular Filt Rate 39
[2025-02-10 21:13] LABS: SM/Ribonucleoprotein Ab <1.0 NEG AI (<1.0 NEG); Smith Protein <1.0 NEG AI (<1.0 NEG)
== END 2025-02-08 08:43 | disposition home or self-care (01) ==
LOC: HO.HKASLDS 08:42
PROVIDERS: PCP Nurse Practitioner Primary Care; Visit Provider Student in an Organized Health Care Education/Training Program
DX: R76.0 Raised antibody titer (principal); R76.89 Other specified abnormal immunological findings in serum; M25.50 Pain in unspecified joint; M79.641 Pain in right hand; M79.642 Pain in left hand; J84.9 Interstitial pulmonary disease, unspecified; I27.20 Pulmonary hypertension, unspecified; I48.91 Unspecified atrial fibrillation; E11.22 Type 2 diabetes mellitus with diabetic chronic kidney disease; N18.9 Chronic kidney disease, unspecified; E03.9 Hypothyroidism, unspecified; Z79.01 Long term (current) use of anticoagulants; Z99.81 Dependence on supplemental oxygen
CPT/HCPCS: 36415; 82565; 84182; 84450; 84460; 85025; 85652; 86140; 86160; 86235; 86255; 99202